=== PATIENT | female | born 1930 | race Caucasian/White ===

== ENCOUNTER 2016-10-02 00:10 | Observation (INO) ==
[2016-10-02 00:55] LABS: Basophils % 0.4 %; Eosinophils # 0.2 K/mcL (0.0-0.6); Eosinophils % 2.1 %; Hemoglobin 14.3 g/dL (11.5-15.4); Immature Granulocytes % 0.3 % (0-4); Lymphocytes % 27.8 %; Mean Corpuscular HGB Conc 31.8 g/dL (31.6-35.5); Mean Corpuscular Hemoglobin 28.2 pg (28.0-33.3); Mean Corpuscular Volume 88.8 fL (83.0-100.0); Mean Platelet Volume 11.2 fL (9.4-12.4); Monocytes # 0.6 K/mcL (0.0-1.3); Monocytes % 8.7 %; Neutrophils # 4.4 K/mcL (1.6-8.9); Platelet Count 222 K/mcL (140-400); Red Blood Count 5.07 M/mcL (3.82-4.97); Red Cell Distribution Width 15.1 % (11.5-14.5); Segmented Neutrophils % 60.7 %
[2016-10-02 01:05] LABS: Calcium 9.4 mg/dL (8.6-10.8); Magnesium 1.7 mg/dL (1.6-2.6); Potassium 4.5 mEq/L (3.5-4.5)
[2016-10-02 01:08] LABS: INR 0.9; Prothrombin Time 9.9 Seconds (9.4-12.1)
[2016-10-02 01:10] LABS: Activated Partial Thrombo Time 29.2 Seconds (26.0-36.0)
[2016-10-02] MEDS ORDERED: Aspirin 325 MG TABLET PO ONE (01:15)
--- NOTE | 2016-10-02 01:21 | Emergency Department Note ---
Disposition Clinical Impression: New onset atrial fibrillation, Toe pain, left Disposition: Admitted As Inpatient Condition: Fair Time of Disposition: 03:18 General Adult HPI - General Chief complaint: ED Extremity Problem,Nontraumatic Stated complaint: left ankle pain post fall Time Seen by Provider: 10/02/16 00:12 Source: patient Limitations: no limitations Nursing Notes Reviewed: Yes Vital Signs Reviewed: Yes - History of Present Illness HPI Narrative: Patient presents to the ED with the chief complaint of left foot pain. Upon arrival to the ED, the patient is very hard of hearing but is alert and oriented. Denying any pain, however, was noted to be in A. fib with RVR with a heart rate of 150 area. No previous history of A. fib. Patient denying chest pain, shortness of breath, or other concerns at this time Pain Scale: 0 - Related Data Home Medications Medication Instructions Recorded Confirmed Aspirin Enteric Coated [Aspirin EC] 81 mg PO QPM 01/27/15 07/16/15 Calcium Carbonate/Vitamin D3 1 each PO BID 01/27/15 07/16/15 [Calcium 600 + D Tablet] Donepezil [Aricept] 5 mg PO HS 01/27/15 07/16/15 Glyburide,Micronized [Glynase] 6 mg PO QAM 01/27/15 07/16/15 Levothyroxine [Synthroid] 50 mcg PO QAM 01/27/15 07/16/15 Metformin [Glucophage] 500 mg PO BIDWM 01/27/15 07/16/15 Montelukast [Singulair] 10 mg PO QPM 01/27/15 07/16/15 Multivitamin [Multi-Day Vitamins] 1 each PO QAM 01/27/15 07/16/15 Pioglitazone HCl [Actos] 15 mg PO QPM 01/27/15 07/16/15 Acetaminophen [Tylenol Arthritis] 650 mg PO DAILY 07/16/15 07/16/15 Enalapril Maleate [Vasotec] 2.5 mg PO BID 07/16/15 07/16/15 Ezetimibe/Simvastatin [Vytorin 1 each PO DAILY 07/16/15 07/16/15 10-20 mg Tablet] Previous Rx's Medication Instructions Recorded Docusate [Colace] 100 mg PO BID #60 capsule 03/16/15 cephALEXin [Keflex] 500 mg PO BID #20 capsule 07/16/15 Azithromycin [Zithromax] 250 mg PO DAILY #6 tablet 02/05/16 Benzonatate [Tessalon] 200 mg PO TID PRN #30 capsule 02/05/16 Sulfamethoxazole/Trimeth DS 1 each PO BID #14 tablet 02/07/16 [Bactrim DS] Allergies Allergy/AdvReac Type Severity Reaction Status Date / Time No Known Allergies Allergy Verified 05/13/16 08:04 Past Medical History - Past Medical History Medical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: dementia, diabetes, hyperlipidemia, hypertension, thyroid disease, other Surgical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: orthopedic, other Psychiatric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: no psych history LIGHTING ADVISER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: non-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 - Social History Smoking Status: Never smoker Smokeless Tobacco Status: No Alcohol use: Reports: none Drug use: Reports: none Physical Exam - General Limitations: no limitations General appearance: alert, in no apparent distress - Head Head exam: atraumatic, normocephalic, normal inspection - Eye Eye exam: Present: normal appearance, PERRL, EOMI - Respiratory Respiratory exam: Present: normal lung sounds bilaterally - Cardiovascular Cardiovascular exam: Present: tachycardia, irregular rhythm - Abdominal Exam Abdominal exam: Present: soft, Non-Tender. Absent: tenderness, distention, guarding, rebound, rigidity - Expanded Lower Extremity Exam Neurovascular/Tendon exam: Present: other (Some mild swelling of the left great toe. No signs of infection) Course - Reevaluation(s) Reevaluation #1: Patient with new onset A. fib with RVR. Converted back to normal sinus rhythm after bolus of Cardizem. However, once started on Cardizem drip. She did become bradycardic to the 50s. The drip was stopped and heart rate has remained normal sinus rhythm in the low 60s. We will hold off on the drip at this time. Were awaiting her troponin and then we will admit her to hospitalist service for new onset A. fib with RVR. Chest x-ray is normal. Will give aspirin. Time: 01:19 Vital Signs Temperature 98.4 F 10/02/16 00:18 Pulse Rate 150 10/02/16 00:18 Respiratory Rate 20 10/02/16 00:18 Blood Pressure 193/122 10/02/16 00:18 O2 Sat by Pulse Oximetry 97 10/02/16 00:18 Temperature 0 F L 10/02/16 03:14 Pulse Rate 54 10/02/16 02:48 Respiratory Rate 0 10/02/16 03:14 Blood Pressure 0/0 10/02/16 03:14 O2 Sat by Pulse Oximetry 98 10/02/16 02:48 Oxygen Delivery Oxygen Delivery Nasal Cannula Medical Decision Making - Medical Records Medical records reviewed: Yes I reviewed the patient's medical records. - Lab Data Lab results reviewed: Yes I reviewed the patient's lab results. Result diagrams: 10/02/16 00:40 10/02/16 00:40 Lab Results 10/02/16 10/02/16 10/02/16 Range/Units 00:40 00:40 00:40 WBC 7.3 (4.3-11.1) K/mcL RBC 5.07 H (3.82-4.97) M/mcL Hgb 14.3 (11.5-15.4) g/dL Hct 45.0 H (35.3-44.9) % MCV 88.8 (83.0-100.0) fL MCH 28.2 (28.0-33.3) pg MCHC 31.8 (31.6-35.5) g/dL RDW 15.1 H (11.5-14.5) % Plt Count 222 (140-400) K/mcL MPV 11.2 (9.4-12.4) fL Immature Gran % 0.3 (0-4) % Seg Neutrophils % 60.7 % Lymphocytes % 27.8 % Monocytes % 8.7 % Eosinophils % 2.1 % Basophils % 0.4 % Neutrophils # 4.4 (1.6-8.9) K/mcL Lymphocytes # 2.0 (0.6-4.6) K/mcL Monocytes # 0.6 (0.0-1.3) K/mcL Eosinophils # 0.2 (0.0-0.6) K/mcL Basophils # 0.0 (0.0-0.2) K/mcL PT 9.9 (9.4-12.1) Seconds INR 0.9 APTT 29.2 (26.0-36.0) Seconds Sodium 139 (136-145) mEq/L Potassium 4.5 (3.5-4.5) mEq/L Chloride 106 (98-109) mEq/L Carbon Dioxide 24 (19-29) mEq/L BUN 28 H (7-20) mg/dL Creatinine 1.11 (0.57-1.11) mg/dL Est GFR ( Amer) 56 L (> 60) Est GFR (Non-Af Amer) 46 L (> 60) BUN/Creatinine Ratio 25 (6-26) Glucose 200 H (70-99) mg/dL Calculated Osmolality 299 (280-300) Calcium 9.4 (8.6-10.8) mg/dL Magnesium 1.7 (1.6-2.6) mg/dL Troponin I (0-0.03) ng/mL 10/02/16 Range/Units 00:40 WBC (4.3-11.1) K/mcL RBC (3.82-4.97) M/mcL Hgb (11.5-15.4) g/dL Hct (35.3-44.9) % MCV (83.0-100.0) fL MCH (28.0-33.3) pg MCHC (31.6-35.5) g/dL RDW (11.5-14.5) % Plt Count (140-400) K/mcL MPV (9.4-12.4) fL Immature Gran % (0-4) % Seg Neutrophils % % Lymphocytes % % Monocytes % % Eosinophils % % Basophils % % Neutrophils # (1.6-8.9) K/mcL Lymphocytes # (0.6-4.6) K/mcL Monocytes # (0.0-1.3) K/mcL Eosinophils # (0.0-0.6) K/mcL Basophils # (0.0-0.2) K/mcL PT (9.4-12.1) Seconds INR APTT (26.0-36.0) Seconds Sodium (136-145) mEq/L Potassium (3.5-4.5) mEq/L Chloride (98-109) mEq/L Carbon Dioxide (19-29) mEq/L BUN (7-20) mg/dL Creatinine (0.57-1.11) mg/dL Est GFR ( Amer) (> 60) Est GFR (Non-Af Amer) (> 60) BUN/Creatinine Ratio (6-26) Glucose (70-99) mg/dL Calculated Osmolality (280-300) Calcium (8.6-10.8) mg/dL Magnesium (1.6-2.6) mg/dL Troponin I 0.00 (0-0.03) ng/mL - Radiology Data Radiology results reviewed: Yes I reviewed the patient's radiology results. - EKG Data EKG #1 EKG attestation: Yes I reviewed and interpreted this EKG. EKG results narrative: Initial EKG at 00:19 showed a flutter with RVR, rate 149 OK, QTC 386, left axis deviation, incomplete right bundle branch block, ST segment depression, which is likely rate related. Repeat EKG at 01:00. After Cardizem bolus shows sinus bradycardia, rate 56, RI interval 180, QRS 121, QTc 408, left axis deviation, right bundle branch block pattern, no acute ischemic changes, but does have a Q-wave in lead V1 and V2, which was also present and previous Patient has remained asymptomatic throughout Attestation Statement - Attestation Attestation: I personally interviewed and examined this patient and my medical decision- making was reviewed with the Resident Physician, Dr. Enriquez. I agree with the documented findings, disposition and treatment plan as described except to the extent set forth below. Patient is an 86-year-old elderly white female who comes in today with complaints of left great toe pain. Patient denies any injury or falls. Upon hooking the patient to monitor to take vitals patient was found to have a heart rate of 150. Patient denies any symptoms associated with this high heart rate, no chest pain or pressure, no palpitations, no shortness of breath, no diaphoresis, no nausea vomiting, no abdominal pain or flank pain. Patient denies any history of any heart disorders or dysrhythmias. She is resting comfortable with this time no complaints in no acute distress. Patient placed on a night monitor continuous pulse ox supplement oxygen 2 L nasal cannula IV saline well was established and patient had portable chest x- ray. Patient's labs overall are unremarkable mild elevation in glucose at 200. Patient was given a Cardizem bolus which resulted in her transitioning from atrial flutter to normal sinus rhythm in the 70s with a stable blood pressure. Initial EKG obtained showed atrial flutter. Within 10-15 minutes of starting Cardizem drip patient became significant bradycardic although completely asymptomatic. Cardizem drip was stopped and held in patient's heart rate normalized in the 70s and 80s with a stable blood pressure. Patient with negative cardiac enzymes, chest x-ray was within normal limits, and patient had film which was negative for any bony injury or swelling. Patient with tachybradycardia while in the ED. Will admit to the hospital for further evaluation of erratic heart rate changes. Currently patient's vital signs are stable she is resting comfortably and asymptomatic. Case was discussed with the hospitalist who accepted patient for admission for further evaluation.
[2016-10-02] MEDS ORDERED: Acetaminophen 325 MG TABLET PO PRN (03:58)
[2016-10-02] MEDS ORDERED: 0.9 % Sodium Chloride 1,000 ML IVC SCH (04:00)
[2016-10-02] MEDS ORDERED: Dextrose Gel 15 GM PO PRN ×2 (04:01)
[2016-10-02] MEDS ORDERED: D5% in Water 1,000 ML IVC PRN (04:01)
[2016-10-02] MEDS ORDERED: *HR* Dextrose 50 % in Water (Syg) 50 ML SYRINGE IVP PRN (04:01)
--- NOTE | 2016-10-02 04:05 | Internal Med History&Physical ---
<Lorena Jacobo - Last Filed: 10/02/16 05:03> Date of Encounter: 10/02/16 Time of Encounter: 03:00 Assessment and Plan (1) SVT (supraventricular tachycardia) Current visit: No Status: Acute - Initial EKG in ED appeared to be SVT with regular morphology at rate of 150. The EKG after conversion appeared to be bradycardia with some irregularity. - Likely secondary to dehydration. Will rehydrate with IV fluid. - Will check thyroid cascade. - Continue telemetry monitoring and trend troponin. (2) Dehydration Current visit: Yes Status: Acute - With reported poor oral fluid intake and BUN/Cr ratio o 25. - Likely contributing to initial SVT in ED. - Hydration with IV NS. (3) Hypothyroidism Current visit: Yes Status: Chronic - Patient had elevated TSH (8.327) but normal free T4 (1.00) on 09/09/16, suggestive of subclinical hypothyroidism. - Continue home dose Synthroid. - Will check thyroid cascade. Qualifiers: Hypothyroidism type: acquired Qualified Code(s): E03.9 - Hypothyroidism, unspecified (4) Toe pain, left Current visit: Yes Status: Acute - Secondary to mechanical fall. - Left foot X-ray found no fracture or malalignment. - Tylenol prn pain. (5) Diabetes Current visit: No Status: Chronic - Insulin sliding scale with routine AccuCheck. - Will check Hgb A1C. - Diabetic diet. Qualifiers: Diabetes mellitus type: type 2 Diabetes mellitus complication status: without complication Diabetes mellitus nursing home insulin use: without intermodal dispatcher use Qualified Code(s): E11.9 - Type 2 diabetes mellitus without complications (6) HTN (hypertension) Current visit: No Status: Chronic - BP now within normal range. - Continue home dose antihypertensive regimen. Qualifiers: Hypertension type: essential hypertension Qualified Code(s): I10 - Essential (primary) hypertension (7) Dementia Current visit: No Status: Chronic - Patient is alert and oriented to self. Per patient's daughter, patient's mental status is at her baseline. - Continu home dose donepezil. Qualifiers: Dementia type: unspecified type Dementia behavioral disturbance: without behavioral disturbance Qualified Code(s): F03.90 - Unspecified dementia without behavioral disturbance (8) Fall Current visit: Yes Status: Acute - Reported mechanical fall at home. - PT/OT consult to evaluate and treat. Qualifiers: Encounter type: initial encounter Qualified Code(s): W19.XXXA - Unspecified fall, initial encounter (9) DVT prophylaxis Current visit: Yes Status: Acute -SQ heparin. Internal Medicine - H&P: HPI Chief complaint: Left big toe pain after a fall. Admitted From: Emergency Dept Plans for Post Hospital Care: Home History of present illness: Ms. Tran is a 86 year old female with PMH of dementia, HTN, DM2 and hypothyroidism currently on Synthroid. Patient presented to [facility] for left big toe pain after a mechanical fall. In ED, patient was noted to have what appeared to be SVT at rate of 150s and blood pressure 193/122. Cardizem drip was started but patient quickly converted to bradycardia at rate of 50s so Cardizem drip was discontinued. On the encounter, patient does not know why she is here in hospital and denies chest pain, shortness of breath, palpitation, lightheadedness at this time. Given patient's dementia and hard to hearing, much of history was obtained from review of medical record and talking to patient's daughter and medical POA at bedside. Per patient's daughter, patient tripped and fell without any loss of consciousness. She states patient's current mental status is at her baseline. Patient is known to have problem to maintain adequate oral fluid intake. Review of [facility] records revealed that patient was hospitalized in 01/2015 for rapid heart rate. And cardiology at time thinks it's PSVT in the setting of possible dehydration & UTI and recommended low-dose Cardizem therapy (120 mg PO daily) to minimize recurrence of SVT. Per patient's daughter, patient did not get the Cardizem prescription on discharge so patient is not on Cardizem at home. Last echo on 03/15/15 found LVEF 60%. Regarding patient's code status, patient's daughter & medical POA states it's okay to get CPR but no long-term life support. Past Med Surg Social Fam HX - Past Medical History Medical history: dementia, diabetes, hyperlipidemia, hypertension, thyroid disease, other Psychiatric history: no psych history - Past Surgical History Surgical History: orthopedic, other - Social History Smoking Status: Never smoker Smokeless Tobacco Status: No Alcohol use: none Drug use: none - Family History Father Living Status: Hx Family Cardiac Disorders: Yes (HEART ATTACK) Internal Medicine - H&P: Meds Aspirin Enteric Coated [Aspirin EC] 81 mg PO QPM 01/27/15 [History] Calcium Carbonate/Vitamin D3 [Calcium 600 + D Tablet] 1 each PO BID 01/27/15 [ History] Donepezil [Aricept] 5 mg PO HS 01/27/15 [History] Glyburide,Micronized [Glynase] 6 mg PO QAM 01/27/15 [History] Levothyroxine [Synthroid] 50 mcg PO QAM 01/27/15 [History] Metformin [Glucophage] 500 mg PO BIDWM 01/27/15 [History] Montelukast [Singulair] 10 mg PO QPM 01/27/15 [History] Multivitamin [Multi-Day Vitamins] 1 each PO QAM 01/27/15 [History] Pioglitazone HCl [Actos] 15 mg PO QPM 01/27/15 [History] Docusate [Colace] 100 mg PO BID #60 capsule 03/16/15 [Rx] Acetaminophen [Tylenol Arthritis] 650 mg PO DAILY 07/16/15 [History] Enalapril Maleate [Vasotec] 2.5 mg PO BID 07/16/15 [History] Ezetimibe/Simvastatin [Vytorin 10-20 mg Tablet] 1 each PO DAILY 07/16/15 [ History] cephALEXin [Keflex] 500 mg PO BID #20 capsule 07/16/15 [Rx] Azithromycin [Zithromax] 250 mg PO DAILY #6 tablet 02/05/16 [Rx] Benzonatate [Tessalon] 200 mg PO TID PRN #30 capsule 02/05/16 [Rx] Sulfamethoxazole/Trimeth DS [Bactrim DS] 1 each PO BID #14 tablet 02/07/16 [Rx] Allergies No Known Allergies Allergy (Verified 05/13/16 08:04) ROS unobtainable: due to mental status (Patient has dementia and is hard to hearing.) - Constitutional Vitals: Temp Pulse Resp BP Pulse Ox 0 F L 54 0 0/0 98 10/02/16 03:14 10/02/16 02:48 10/02/16 03:14 10/02/16 03:14 10/02/16 02:48 General appearance: Present: cooperative, A&O X 1 (Alert and orient to self. Per patient's daugher at bedside, this is her baseline. ), no acute distress - Head Head exam: Present: atraumatic, normocephalic - Eye Eye exam: Present: EOMI, PERRL, conjuntiva pink, sclera anicteric - Neck Neck exam general surgery: Present: supple, trachea midline. Absent: lymphadenopathy - Respiratory Respiratory exam: Present: CTAB. Absent: accessory muscle use, rales, rhonchi, wheezes - Cardiovascular Cardiovascular exam: Present: RRR, +S1, +S2. Absent: diastolic murmur, gallop, rubs, systolic murmur - GI/Abdominal GI/Abdominal exam: Present: normal bowel sounds, soft, no peritoneal signs. Absent: distended, tenderness - Extremities Exam Extremities exam: Present: warm, radial pulses palpable and symmetrical. Absent : calf tenderness, cyanotic, pedal edema - Neurological Exam Neurological exam: Present: CN II-XII intact, oriented X3, no focal deficits. Absent: pronater drift, facial droop, speech deficit - Skin Skin exam: Present: dry, intact, warm Internal Med - H&P Results - Labs CBC & Chem 7: 10/02/16 00:40 10/02/16 00:40 <Devendra Whiting - Last Filed: 10/02/16 06:13> Date of Encounter: 10/02/16 Internal Medicine - H&P: HPI History of present illness: Ms. Tran is a 86 year old female All Systems PM: A 10-system review of systems was performed and is negative for pertinent findings except as documented above in the HPI. - Constitutional Vitals: Temp Pulse Resp BP Pulse Ox 97.7 F 63 20 159/66 100 10/02/16 04:01 10/02/16 04:01 10/02/16 04:01 10/02/16 04:01 10/02/16 04:01 Internal Med - H&P Results - Labs CBC & Chem 7: 10/02/16 00:40 10/02/16 00:40 Labs: Urine 10/02/16 Range/Units 05:20 Urine Color Yellow (Yellow) Urine Clarity Clear (Clear) Urine pH 6.5 (5.0-8.0) pH Units Ur Specific Busy 1.018 (1.010-1.025) Urine Protein Negative (Neg-Trace) mg/dL Urine Glucose (UA) Normal (Normal) mg/dL - Attending Attestation I examined this patient and my medical decision-making was reviewed with the Resident Physician, Dr. Lorena Jacobo. I agree with the documented findings, disposition and treatment plan as described except to the extent set forth below. I have independently obtained history and examined the patient and my findings are summarized below: Patient is very hard of hearing. In no acute distress. Head is atraumatic. Heart is regular S1-S2 with no murmurs rubs or gallops Lungs are clear bilaterally Extremities with no edema Plan: We will monitor on telemetry, trend troponin, a recent echocardiogram is unremarkable and does not require a repeat. We will obtain PT OT evaluation, request social work consult. We will treat her dehydration with IV fluids and follow up thyroid function tests.
[2016-10-02 04:45] LABS: Hemoglobin A1C 7.1 %
[2016-10-02 05:03] LABS: Thyroid Stimulating Hormone 6.683 mcIU/mL (0.350-4.840)
[2016-10-02] MEDS: *HR* Heparin 5,000 UNIT/ML VIAL SQ SCH ×3 (05:46→22:05)
[2016-10-02 05:49] LABS: Bilirubin,Urine Negative (Negative); Blood,Urine Negative (Negative); Clarity,Urine Clear (Clear); Color,Urine Yellow (Yellow); Glucose,Urine (UA) Normal (Normal); Ketones,Urine Negative (Negative); Leukocyte Esterase,Urine Negative (Negative); Nitrite,Urine Negative (Negative); PH,Urine 6.5 pH Units (5.0-8.0); Protein,Urine Negative (Neg-Trace); Specific Gravity,Urine 1.018 (1.010-1.025); Urobilinogen,Urine Normal (Normal)
[2016-10-02] MEDS: Insulin LISPRO 300 UNITS/3 ML VIAL SQ SCH ×3 (07:53→16:27)
[2016-10-02] MEDS: Diltiazem CD (24hr) 120 MG CAPSULE PO SCH (11:44)
[2016-10-02] MEDS ORDERED: 0.9 % Sodium Chloride 500 ML IVC ONE (11:49)
[2016-10-02] MEDS ORDERED: Aspirin Enteric Coated 81 MG Tablet PO SCH (18:00)
--- NOTE | 2016-10-02 19:13 | Event Note ---
Date of Encounter: 10/02/16 Time of Encounter: 10:00 Pt was admitted earlier today with REENA. She has been receiving IV fluids. She had SVT as well and now is on PO med. Exam Alert and comfortable Heart reg I/P 1 SVT 2. REENA Plan continue fluids, PO meds and anticipate d/c tomorrow.
--- NOTE | 2016-10-02 19:51 | Event Note ---
Date of Encounter: 10/02/16 Time of Encounter: 08:45 Patient seen and examined. Most of the history obtained from daughter as the patient was very tired from admission. She reports no complaints. Start PO Cardizem 120mg and monitor. PT/OT evaluation.
--- NOTE | 2016-10-02 20:30 | Electrocardiograph Report ---
[place] [id number] Test Date: 2016-10-02 Pat Name: Anyi Tran Department: 102 Room: 2A45 Gender: F Revenue Research Analyst: Kacy : [id number] Requested By: Colt Enriquez Order Number: [id number] Reading MD: Luciano Israel MD Measurements Intervals [place] Rate: 152 P: 230 TX: 119 QRS: -74 QRSD: 111 T: 60 QT: 297 QTc: 383 Interpretive Statements SINUS TACHYCARDIA WITH SHORT TX INTERVAL, POSSIBLE ATRIAL FLUTTER INCOMPLETE RIGHT BUNDLE BRANCH BLOCK LEFT ANTERIOR FASCICULAR BLOCK Poor R wave progression Electronically Signed On 10-02-2016 20:28:42 EDT by Luciano Israel MD
[2016-10-02] MEDS ORDERED: Insulin LISPRO 300 UNITS/3 ML VIAL SQ SCH (21:00)
[2016-10-03 05:07] LABS: Calcium 9.2 mg/dL (8.6-10.8); Potassium 3.9 mEq/L (3.5-4.5)
[2016-10-03] MEDS: *HR* Heparin 5,000 UNIT/ML VIAL SQ SCH (05:47)
[2016-10-03 07:08] VITALS: BP 158/85
--- NOTE | 2016-10-03 08:31 | Discharge Summary ---
<Quique Hummel R - Last Filed: 10/03/16 08:49> Date of Encounter: 10/03/16 Time of Encounter: 08:28 - Discharge Diagnosis (1) SVT (supraventricular tachycardia) Priority: Primary Status: Resolved (2) Dehydration Priority: Secondary Status: Acute (3) Fall Priority: Secondary Status: Acute Qualifiers: Encounter type: initial encounter Qualified Code(s): W19.XXXA - Unspecified fall, initial encounter (4) Dementia Priority: Secondary Status: Chronic Qualifiers: Dementia type: unspecified type Dementia behavioral disturbance: without behavioral disturbance Qualified Code(s): F03.90 - Unspecified dementia without behavioral disturbance (5) Non-insulin dependent type 2 diabetes mellitus Priority: Secondary Status: Chronic (6) HTN (hypertension) Priority: Secondary Status: Chronic Qualifiers: Hypertension type: essential hypertension Qualified Code(s): I10 - Essential (primary) hypertension (7) Toe pain, left Priority: Secondary Status: Acute (8) Hypothyroidism Priority: Secondary Status: Chronic Qualifiers: Hypothyroidism type: acquired Qualified Code(s): E03.9 - Hypothyroidism, unspecified - Discharge Medications Prescriptions: Diltiazem CD (24hr) [Cardizem CD] 120 mg PO DAILY #30 cap.er.24h Home Medications: Aspirin Enteric Coated [Aspirin EC] 81 mg PO QPM 01/27/15 [History] Calcium Carbonate/Vitamin D3 [Calcium 600 + D Tablet] 1 tab PO BID 01/27/15 [ History] Donepezil [Aricept] 5 mg PO HS 01/27/15 [History] Levothyroxine [Synthroid] 50 mcg PO QAM 01/27/15 [History] Metformin [Glucophage] 1,000 mg PO BIDWM 01/27/15 [History] Montelukast [Singulair] 10 mg PO QPM 01/27/15 [History] Multivitamin [Multi-Day Vitamins] 1 tab PO QAM 01/27/15 [History] Docusate [Colace] 100 mg PO BID #60 capsule 03/16/15 [Rx] Acetaminophen [Tylenol Arthritis] 650 mg PO DAILY PRN 07/16/15 [History] Enalapril Maleate [Vasotec] 10 mg PO DAILY 07/16/15 [History] Glimepiride [Amaryl] 2 mg PO 0800 10/02/16 [History] Simvastatin [Zocor] 20 mg PO HS 10/02/16 [History] Diltiazem CD (24hr) [Cardizem CD] 120 mg PO DAILY #30 cap.er.24h 10/03/16 [Rx] Allergies/Adverse Reactions: Allergies No Known Allergies Allergy (Verified 05/13/16 08:04) Procedures/tests Complete & Pending: Procedures Performed prior 72 hours Category Date Time Status ECG 12 lead ECG [ECG] Routine Y 10/02/16 00:17 Completed Date of admission: 10/02/16 02:47 Primary care physician: Amelia Reddy CNP Consults: 10/02/16 03:40 Consult to Construction Analyst [CONS] Routine Reason for SW Consult: Discharge planning. Has home helpers, attends adult day care. Dementia patient--lives with daughter in home 10/02/16 04:04 Consult to Physical Therapy [CONS] Routine Comment: Evaluate, develop and implement POC Reason for Consult: Fall at home OT [Consult to Occupational Therapy] [CONS] Routine Comment: Evaluate, develop and implement POC Reason for Consult: Fall at home Discharging clinician: Quique Hummel Anticipated date of discharge: 10/03/16 - Patient Status Disposition: Transfer SNF Condition: Fair Overall status at discharge: patient is progressing back to baseline - Discharge Instructions Follow Up With: Amelia Reddy CNP [Primary Care Provider] - (web request 10/02/16 [facility] Additional Instructions: Continue to work with Physical Therapy to increase strength Follow-up with you primary care physician Return if symptoms return or worsen - Diet and Activity Activity: as per physical therapy Diet: advance to your usual diet Interval History: Patient doing well. Reports no complaints and states she feels like her normal self. Denies syncope, dizziness, palpitations, chest pain, dyspnea, cough, N/V/D , dysuria, or leg pain. Hospital course: Ms. Tran is a 86 year old female with PMH of DM, HTN, hypothyroidism, and dementia, presents after a mechanical fall with right toe pain and no fracture on images. In the ED she was found to be in SVT, likely secondary to dehydration. Cardizem drip was initiated and then stopped after the patient became bradycardic. Management was discussed with torch brazer, and he recommended initiating low-dose oral Cardizem (120mg daily). She was monitored closely and she did not become bradycardic or have symptoms with the low-dose Cardizem. Patient will be transferred to [facility] in [place]. - Time Spent with Patient Total time spent providing and/or coordinating discharge services: - Constitutional Vitals: Temp Pulse Resp BP Pulse Ox 98.3 F 60 14 158/85 96 10/03/16 07:03 10/03/16 07:03 10/03/16 07:03 10/03/16 07:03 10/03/16 07:03 General appearance: Present: cooperative, A&O X 1 (Alert and orient to self. Per patient's daugher at bedside, this is her baseline. ), no acute distress - Head Head exam: Present: atraumatic, normocephalic - ENT ENT exam: Present: mucous membranes moist - Respiratory Respiratory exam: Present: CTAB. Absent: rales, rhonchi, wheezes - Cardiovascular Cardiovascular exam: Present: RRR, +S1, +S2. Absent: diastolic murmur, systolic murmur - GI/Abdominal GI/Abdominal exam: Present: normal bowel sounds, soft. Absent: distended, rigid , tenderness - Neurological Exam Neurological exam: Present: alert, CN II-XII intact, no focal deficits <Jose Martin Devlin - Last Filed: 10/03/16 18:49> Date of Encounter: 10/03/16 - Discharge Diagnosis (1) SVT (supraventricular tachycardia) Status: Resolved (2) REENA (acute kidney injury) Priority: Secondary Status: Resolved (3) Hypothyroidism Status: Chronic Qualifiers: Hypothyroidism type: acquired Qualified Code(s): E03.9 - Hypothyroidism, unspecified (4) Dehydration Status: Acute (5) HTN (hypertension) Status: Chronic Qualifiers: Hypertension type: essential hypertension Qualified Code(s): I10 - Essential (primary) hypertension (6) Dementia Status: Chronic Qualifiers: Dementia type: unspecified type Dementia behavioral disturbance: without behavioral disturbance Qualified Code(s): F03.90 - Unspecified dementia without behavioral disturbance (7) Diabetes Priority: Secondary Status: Chronic Qualifiers: Diabetes mellitus type: type 2 Diabetes mellitus complication status: without complication Diabetes mellitus keno terminal operator insulin use: without usp use Qualified Code(s): E11.9 - Type 2 diabetes mellitus without complications Procedures/tests Complete & Pending: Procedures Performed prior 72 hours Category Date Time Status ECG 12 lead ECG [ECG] Routine Y 10/02/16 00:17 Completed Date of admission: 10/02/16 02:47 Primary care physician: Amelia Reddy CNP Consults: 10/02/16 03:40 Consult to Construction Analyst [CONS] Routine Reason for SW Consult: Discharge planning. Has home helpers, attends adult day care. Dementia patient--lives with daughter in home 10/02/16 04:04 Consult to Physical Therapy [CONS] Routine Comment: Evaluate, develop and implement POC Reason for Consult: Fall at home OT [Consult to Occupational Therapy] [CONS] Routine Comment: Evaluate, develop and implement POC Reason for Consult: Fall at home Hospital course: Ms. Tran is a 86 year old female - Time Spent with Patient Total time spent providing and/or coordinating discharge services: - Constitutional Vitals: Temp Pulse Resp BP Pulse Ox 98.3 F 60 14 158/85 96 10/03/16 07:03 10/03/16 07:03 10/03/16 07:03 10/03/16 07:03 10/03/16 07:03 - Attending Attestation I examined this patient and my medical decision-making was reviewed with the Resident Physician on 10/03/16. I agree with the documented findings, disposition and treatment plan as described except to the extent set forth below. Ms. Ruano was admitted for acute SVT and dehydration. She is now afebrile with stable vitals and ready for d/c home. Exam alert. Comfortable Heart reg No wheeze Abd soft Plan D/C home today.
--- NOTE | 2016-10-03 08:49 | Physician Discharge Referral ---
ExtendedCare Referral Info Transfer To: [facility] Provider in Charge after Transfer: PCP, Other (Regional Service Manager) Institutional Level of Care: Skilled - Diagnosis (1) SVT (supraventricular tachycardia) Priority: Primary Status: Resolved (2) Dehydration Priority: Secondary Status: Acute (3) Fall Priority: Secondary Status: Acute (4) Dementia Priority: Secondary Status: Chronic (5) Non-insulin dependent type 2 diabetes mellitus Priority: Secondary Status: Chronic (6) HTN (hypertension) Priority: Secondary Status: Chronic (7) Toe pain, left Priority: Secondary Status: Acute (8) Hypothyroidism Priority: Secondary Status: Chronic Prognosis: Fair Aware of Diagnosis: Patient, Family Aware of Prognosis: Patient, Family - Transfer Medications Prescriptions: Diltiazem CD (24hr) [Cardizem CD] 120 mg PO DAILY #30 cap.er.24h Home Medications: Aspirin Enteric Coated [Aspirin EC] 81 mg PO QPM 01/27/15 [History] Calcium Carbonate/Vitamin D3 [Calcium 600 + D Tablet] 1 tab PO BID 01/27/15 [ History] Donepezil [Aricept] 5 mg PO HS 01/27/15 [History] Levothyroxine [Synthroid] 50 mcg PO QAM 01/27/15 [History] Metformin [Glucophage] 1,000 mg PO BIDWM 01/27/15 [History] Montelukast [Singulair] 10 mg PO QPM 01/27/15 [History] Multivitamin [Multi-Day Vitamins] 1 tab PO QAM 01/27/15 [History] Docusate [Colace] 100 mg PO BID #60 capsule 03/16/15 [Rx] Acetaminophen [Tylenol Arthritis] 650 mg PO DAILY PRN 07/16/15 [History] Enalapril Maleate [Vasotec] 10 mg PO DAILY 07/16/15 [History] Glimepiride [Amaryl] 2 mg PO 0800 10/02/16 [History] Simvastatin [Zocor] 20 mg PO HS 10/02/16 [History] Diltiazem CD (24hr) [Cardizem CD] 120 mg PO DAILY #30 cap.er.24h 10/03/16 [Rx] Allergies/Adverse Reactions: Allergies No Known Allergies Allergy (Verified 05/13/16 08:04) - Respiratory Orders Smoking Cessation: Smoking cessation has been advised. For more information, call the [place] Tobacco Quit Line at 1-712-EZKC-NOW. - Advance Directives Code Status: Full Code - Rehabiliation Orders Rehab Potential: Fair Rehab Orders: Evaluation for Physical Therapy, Evaluation for Occupational Therapy - Diet Orders Regular CERTIFICATION: I certify that the transfer of the above named patient to an Extended Care Facility is necessary for the continuing treatment of the diagnosis listed. The above information is true and accurate reflection of patient's current condition. Confidential - Redisclosure prohibited without a patient's written consent.
[2016-10-03] MEDS: Insulin LISPRO 300 UNITS/3 ML VIAL SQ SCH (08:54)
[2016-10-03] MEDS: Diltiazem CD (24hr) 120 MG CAPSULE PO SCH (09:00)
--- NOTE | 2016-10-03 15:24 | Electrocardiograph Report ---
[place] [id number] Test Date: 2016-10-02 Pat Name: Anyi Tran Department: 102 Room: 2A Gender: Germination Testing Manager: [id number] : 1930 Requested By: Jose Martin Devlin Order Number: [id number] Reading MD: Goran Hendrickson Measurements Intervals [place] Rate: 56 P: 36 NC: 180 QRS: -63 QRSD: 121 T: 7 QT: 417 QTc: 408 Interpretive Statements SINUS BRADYCARDIA WITH JUNCTIONAL ESCAPE BEATS RIGHT BUNDLE BRANCH BLOCK LEFT ANTERIOR FASCICULAR BLOCK Electronically Signed On 10-03-2016 15:23:01 EDT by Goran Hendrickson
== END 2016-10-03 11:05 ==
LOC: EMEROO 00:10 → 2ANU 00:10 → SUATTDRO 02:47 → 2ANU 03:07
PROVIDERS: ADMIT Internal Medicine Hematology & Oncology; ATTEND Internal Medicine

== ENCOUNTER 2017-07-08 23:50 | Inpatient (IN) ==
--- NOTE | 2017-07-09 01:46 | Emergency Department Note ---
Disposition Clinical Impression: Right upper lobe pneumonia Qualifiers: Pneumonia type: due to unspecified organism Qualified Code(s): J18.1 - Lobar pneumonia, unspecified organism Disposition: Admitted As Inpatient Condition: Good Time of Disposition: 06:19 Weakness HPI - General Chief complaint: ED General Medical Stated complaint: "generalized illness" Time Seen by Provider: 07/09/17 00:29 Source: EMS Nursing Notes Reviewed: Yes Vital Signs Reviewed: Yes - History of Present Illness HPI Narrative: 86-year-old female presents with worsening weakness, decreased activity. She is accompanied by her daughter whom she lives, and who has provided history. Daughter reports that patient has had a cough, fever over the past 2 days. Daughter mentions patient has had dementia, but has been less alert. They had called their family doctor who had started her on amoxicillin today she had taken one dose. Symptoms worsen which prompted her visit to the emergency department. Daughter does mention patient has history of dementia, but has become more weak, and less alert. She also mentions patient had complained of neck pain earlier, and has had eye discharge. SHe denies worsening confusion, chest pain, shortness breath, abdominal pain, vomiting, or bladder symptoms. Pain Scale: 0 - Related Data Home Medications Medication Instructions Recorded Confirmed Aspirin Enteric Coated [Aspirin EC] 81 mg PO QPM 01/27/15 10/02/16 Calcium Carbonate/Vitamin D3 1 tab PO BID 01/27/15 10/02/16 [Calcium 600 + D Tablet] Donepezil [Aricept] 5 mg PO HS 01/27/15 10/02/16 Levothyroxine [Synthroid] 50 mcg PO QAM 01/27/15 10/02/16 Metformin [Glucophage] 1,000 mg PO BIDWM 01/27/15 10/02/16 Montelukast [Singulair] 10 mg PO QPM 01/27/15 10/02/16 Multivitamin [Multi-Day Vitamins] 1 tab PO QAM 01/27/15 10/02/16 Acetaminophen [Tylenol Arthritis] 650 mg PO DAILY PRN 07/16/15 10/02/16 Enalapril Maleate [Vasotec] 10 mg PO DAILY 07/16/15 10/02/16 Glimepiride [Amaryl] 2 mg PO 0800 10/02/16 10/02/16 Simvastatin [Zocor] 20 mg PO HS 10/02/16 10/02/16 Previous Rx's Medication Instructions Recorded Docusate [Colace] 100 mg PO BID #60 capsule 03/16/15 Diltiazem CD (24hr) [Cardizem CD] 120 mg PO DAILY #30 cap.er.24h 10/03/16 Allergies Allergy/AdvReac Type Severity Reaction Status Date / Time No Known Allergies Allergy Verified 05/13/16 08:04 All systems ED: reviewed and negative except as stated. Review of Systems: As Per HPI Constitutional: Denies: fever, chills, weakness Eyes: Reports: eye discharge. Denies: vision change ENT ED: Denies: throat pain Cardiovascular: Denies: palpitations Respiratory: Denies: dyspnea Gastrointestinal: Denies: abdominal pain, nausea, vomiting Genitourinary: Denies: dysuria Musculoskeletal: Denies: back pain, neck pain Integumentary: Denies: rash Neurological: Reports: as per HPI Endocrine: Denies: fatigue Hematological/Lymphatic: Denies: easy bleeding Allergic/Immunologic: Denies: facial swelling Past Medical History - Past Medical History Medical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: non-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, dementia, diabetes, hyperlipidemia, hypertension, thyroid disease, other Surgical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: orthopedic, other Psychiatric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: no psych history NOTCH GRINDER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: non-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 - Social History Smoking Status: Never smoker Smokeless Tobacco Status: No Alcohol use: Reports: none Drug use: Reports: none Physical Exam - General Limitations: altered mental status General appearance: in no apparent distress, other (Somnolent but arousable) - Head Head exam: atraumatic, normocephalic - Eye Eye exam: Present: EOMI. Absent: conjunctival injection - Expanded Eye Exam Sclera/Conjunctival: bilateral: exudate - ENT ENT exam: normal oropharynx, mucous membranes moist - Neck Neck exam: Present: normal inspection, full ROM. Absent: lymphadenopathy - Chest Chest inspection: Present: symmetric chest wall rise - Respiratory Respiratory exam: Present: normal lung sounds bilaterally. Absent: respiratory distress - Cardiovascular Cardiovascular exam: Present: regular rate - Abdominal Exam Abdominal exam: Present: soft, Non-Tender - Extremities Exam Extremities exam: Present: normal inspection, full ROM, normal capillary refill. Absent: tenderness - Expanded Neurological Exam Coma Scale Eye Opening: To Voice Coma Scale Motor Response: Obeys Commands Coma Scale Verbal Response: Confused Coma Scale Total: 13 - Psychiatric Psychiatric exam: Present: normal affect, normal mood - Skin Skin exam: Present: warm, dry, intact, normal color. Absent: rash, cyanosis, diaphoresis Course Course Narrative: 86-year-old female arrives via squad with reported recent illness, decreased level of alertness, and fever. History provided by patient's daughter who mentions patient has chronic dementia, but has become more weak and less alert. They have had contacted by phone their PCP who prescribed amoxicillin, however patient has not seen for her symptoms yet. Patient seen and examined. she appears somnolent but is arousable, follows commands. Lung sounds coarse, mild rhonchi. O2 sat 90% on room air, otherwise vitals within normal limits. Workup initiated. - Reevaluation(s) Reevaluation #1: Chest x-ray concerning for right lower lobe pneumonia. No leukocytosis. O2 sat 96% on 2 L. Time: 03:08 Reevaluation #2: Patient discussed with and accepted by hospitalist Dr. Sagastume. Time: 04:13 Vital Signs Temperature 99.8 F H 07/08/17 23:55 Pulse Rate 89 07/08/17 23:55 Respiratory Rate 16 07/08/17 23:55 Blood Pressure 128/70 07/08/17 23:55 O2 Sat by Pulse Oximetry 90 07/08/17 23:55 Temperature 97.9 F 07/09/17 04:45 Pulse Rate 84 07/09/17 04:45 Respiratory Rate 14 07/09/17 04:45 Blood Pressure 122/60 07/09/17 04:45 O2 Sat by Pulse Oximetry 97 07/09/17 04:45 Oxygen Delivery Oxygen Delivery Nasal Cannula Weakness - [facility] Narrative Medical decision making narrative: Patient is a 86-year-old female with known history of chronic dementia, presented with decreased level of alertness, and weakness. Patient was discussed with Dr. Rock, who also had face time with patient work agreed with workup and disposition. Patient's chest x-ray findings consistent with pneumonia. Her vitals are stable. No recent admission or hospitalizations. She was discussed with hospitalist who agreed for admission Chest X-Ray 07/09/17 01:08 IMPRESSION: Right upper lobe pneumonia. D/ / Darren Truong MD / Darren Truong MD Interpreting Provider: Darren Truong MD Laboratory Tests 07/09/17 07/09/17 07/09/17 02:03 02:03 02:10 WBC RBC Hgb Hct MCV MCH MCHC RDW Plt Count MPV Immature Gran % Seg Neutrophils % Lymphocytes % Monocytes % Eosinophils % Basophils % Neutrophils # Lymphocytes # Monocytes # Eosinophils # Basophils # Immature Plt Fraction Sodium 138 Potassium 4.4 Chloride 105 Carbon Dioxide 22 L BUN 20 Creatinine 0.91 Est GFR ( Amer) > 60 Est GFR (Non-Af Amer) 58 L BUN/Creatinine Ratio 22 Glucose 160 H Calculated Osmolality 292 Lactic Acid 0.8 Calcium 8.8 Total Bilirubin 0.6 Direct Bilirubin 0.1 Indirect Bilirubin 0.5 AST 23 ALT 14 Alkaline Phosphatase 62 Troponin I < 0.03 Serum Total Protein 5.9 L Albumin 3.5 Globulin 2.4 Albumin/Globulin Ratio 1.5 Urine Color Dark Yellow Urine Clarity Clear Urine pH 5.0 Ur Specific Mayflower 1.030 H Urine Protein Negative Urine Glucose (UA) Normal Urine Ketones Trace H Urine Blood Negative Urine Nitrite Negative Urine Bilirubin Small H Urine Urobilinogen Normal Ur Leukocyte Esterase Small H Urine Microscopic RBC 0-3 Urine Microscopic WBC 5-15 H Ur Squamous Epith Cells Many H Urine Bacteria None Seen Hyaline Casts None Seen Ur Culture Indicated? NO. A 07/09/17 02:12 WBC 8.2 RBC 4.46 Hgb 13.3 Hct 40.1 MCV 89.9 MCH 29.8 MCHC 33.2 RDW 14.3 Plt Count 196 MPV 11.9 Immature Gran % 0.2 Seg Neutrophils % 71.5 Lymphocytes % 11.4 Monocytes % 16.0 Eosinophils % 0.7 Basophils % 0.2 Neutrophils # 5.9 Lymphocytes # 0.9 Monocytes # 1.3 Eosinophils # 0.1 Basophils # 0.0 Immature Plt Fraction 5.5 Sodium Potassium Chloride Carbon Dioxide BUN Creatinine Est GFR ( Amer) Est GFR (Non-Af Amer) BUN/Creatinine Ratio Glucose Calculated Osmolality Lactic Acid Calcium Total Bilirubin Direct Bilirubin Indirect Bilirubin AST ALT Alkaline Phosphatase Troponin I Serum Total Protein Albumin Globulin Albumin/Globulin Ratio Urine Color Urine Clarity Urine pH Ur Specific Mayflower Urine Protein Urine Glucose (UA) Urine Ketones Urine Blood Urine Nitrite Urine Bilirubin Urine Urobilinogen Ur Leukocyte Esterase Urine Microscopic RBC Urine Microscopic WBC Ur Squamous Epith Cells Urine Bacteria Hyaline Casts Ur Culture Indicated? - Lab Data Lab results reviewed: Yes I reviewed the patient's lab results. Result diagrams: 07/09/17 02:12 07/09/17 02:03 Lab Results 07/09/17 07/09/17 07/09/17 Range/Units 02:03 02:03 02:10 WBC (4.3-11.1) K/mcL RBC (3.82-4.97) M/mcL Hgb (11.5-15.4) g/dL Hct (35.3-44.9) % MCV (83.0-100.0) fL MCH (28.0-33.3) pg MCHC (31.6-35.5) g/dL RDW (11.5-14.5) % Plt Count (140-400) K/mcL MPV (9.4-12.4) fL Immature Gran % (0-4) % Seg Neutrophils % % Lymphocytes % % Monocytes % % Eosinophils % % Basophils % % Neutrophils # (1.6-8.9) K/mcL Lymphocytes # (0.6-4.6) K/mcL Monocytes # (0.0-1.3) K/mcL Eosinophils # (0.0-0.6) K/mcL Basophils # (0.0-0.2) K/mcL Immature Plt Fraction (1.1-6.1) % Sodium 138 (136-145) mEq/L Potassium 4.4 (3.5-5.1) mEq/L Chloride 105 (98-107) mEq/L Carbon Dioxide 22 L (23-29) mEq/L BUN 20 (8-23) mg/dL Creatinine 0.91 (0.60-1.20) mg/dL Est GFR ( Amer) > 60 (> 60) Est GFR (Non-Af Amer) 58 L (> 60) BUN/Creatinine Ratio 22 (6-26) Glucose 160 H (70-105) mg/dL Calculated Osmolality 292 (280-300) Lactic Acid 0.8 (0.5-2.2) mmol/L Calcium 8.8 (8.6-10.3) mg/dL Total Bilirubin 0.6 (0.3-1.0) mg/dL Direct Bilirubin 0.1 (0.0-0.2) mg/dL Indirect Bilirubin 0.5 (0.0-1.2) mg/dL AST 23 (13-39) Units/L ALT 14 (7-52) Units/L Alkaline Phosphatase 62 (34-104) Units/L Troponin I < 0.03 (< 0.04) ng/mL Serum Total Protein 5.9 L (6.4-8.9) g/dL Albumin 3.5 (3.5-5.7) g/dL Globulin 2.4 (2.4-3.5) g/dL Albumin/Globulin Ratio 1.5 (1.1-2.2) Urine Color Dark Yellow (Yellow) Urine Clarity Clear (Clear) Urine pH 5.0 (5.0-8.0) pH Units Ur Specific Mayflower 1.030 H (1.010-1.025) Urine Protein Negative (Neg-Trace) mg/dL Urine Glucose (UA) Normal (Normal) mg/dL Urine Ketones Trace H (Negative) mg/dL Urine Blood Negative (Negative) Urine Nitrite Negative (Negative) Urine Bilirubin Small H (Negative) Urine Urobilinogen Normal (Normal) mg/dL Ur Leukocyte Esterase Small H (Negative) Urine Microscopic RBC 0-3 (0-3) per hpf Urine Microscopic WBC 5-15 H (0-3) per hpf Ur Squamous Epith Cells Many H (None-Few) per lpf Urine Bacteria None Seen (None-Few) per hpf Hyaline Casts None Seen (None-Few) per lpf Ur Culture Indicated? NO. A (NO) 07/09/17 Range/Units 02:12 WBC 8.2 (4.3-11.1) K/mcL RBC 4.46 (3.82-4.97) M/mcL Hgb 13.3 (11.5-15.4) g/dL Hct 40.1 (35.3-44.9) % MCV 89.9 (83.0-100.0) fL MCH 29.8 (28.0-33.3) pg MCHC 33.2 (31.6-35.5) g/dL RDW 14.3 (11.5-14.5) % Plt Count 196 (140-400) K/mcL MPV 11.9 (9.4-12.4) fL Immature Gran % 0.2 (0-4) % Seg Neutrophils % 71.5 % Lymphocytes % 11.4 % Monocytes % 16.0 % Eosinophils % 0.7 % Basophils % 0.2 % Neutrophils # 5.9 (1.6-8.9) K/mcL Lymphocytes # 0.9 (0.6-4.6) K/mcL Monocytes # 1.3 (0.0-1.3) K/mcL Eosinophils # 0.1 (0.0-0.6) K/mcL Basophils # 0.0 (0.0-0.2) K/mcL Immature Plt Fraction 5.5 (1.1-6.1) % Sodium (136-145) mEq/L Potassium (3.5-5.1) mEq/L Chloride (98-107) mEq/L Carbon Dioxide (23-29) mEq/L BUN (8-23) mg/dL Creatinine (0.60-1.20) mg/dL Est GFR ( Amer) (> 60) Est GFR (Non-Af Amer) (> 60) BUN/Creatinine Ratio (6-26) Glucose (70-105) mg/dL Calculated Osmolality (280-300) Lactic Acid (0.5-2.2) mmol/L Calcium (8.6-10.3) mg/dL Total Bilirubin (0.3-1.0) mg/dL Direct Bilirubin (0.0-0.2) mg/dL Indirect Bilirubin (0.0-1.2) mg/dL AST (13-39) Units/L ALT (7-52) Units/L Alkaline Phosphatase (34-104) Units/L Troponin I (< 0.04) ng/mL Serum Total Protein (6.4-8.9) g/dL Albumin (3.5-5.7) g/dL Globulin (2.4-3.5) g/dL Albumin/Globulin Ratio (1.1-2.2) Urine Color (Yellow) Urine Clarity (Clear) Urine pH (5.0-8.0) pH Units Ur Specific Mayflower (1.010-1.025) Urine Protein (Neg-Trace) mg/dL Urine Glucose (UA) (Normal) mg/dL Urine Ketones (Negative) mg/dL Urine Blood (Negative) Urine Nitrite (Negative) Urine Bilirubin (Negative) Urine Urobilinogen (Normal) mg/dL Ur Leukocyte Esterase (Negative) Urine Microscopic RBC (0-3) per hpf Urine Microscopic WBC (0-3) per hpf Ur Squamous Epith Cells (None-Few) per lpf Urine Bacteria (None-Few) per hpf Hyaline Casts (None-Few) per lpf Ur Culture Indicated? (NO) - Radiology Data Radiology results reviewed: Yes I reviewed the patient's radiology results. Attestation Statement - Attestation Attestation: I examined this patient and my medical decision-making was reviewed with the Resident Physician. I agree with the documented findings, disposition and treatment plan as described except to the extent set forth below. Findings consistent with weakness and pneumonia. We will start antibiotics and obtain cultures. Patient be admitted for further management.
[2017-07-09 02:10] LABS: Basophils % 0.2 %; Eosinophils # 0.1 K/mcL (0.0-0.6); Eosinophils % 0.7 %; Hematocrit 40.1 % (35.3-44.9); Hemoglobin 13.3 g/dL (11.5-15.4); Immature Granulocytes % 0.2 % (0-4); Immature Platelets 5.5 % (1.1-6.1); Lymphocytes # 0.9 K/mcL (0.6-4.6); Lymphocytes % 11.4 %; Mean Corpuscular HGB Conc 33.2 g/dL (31.6-35.5); Mean Corpuscular Hemoglobin 29.8 pg (28.0-33.3); Mean Corpuscular Volume 89.9 fL (83.0-100.0); Mean Platelet Volume 11.9 fL (9.4-12.4); Monocytes # 1.3 K/mcL (0.0-1.3); Neutrophils # 5.9 K/mcL (1.6-8.9); Platelet Count 196 K/mcL (140-400); Red Blood Count 4.46 M/mcL (3.82-4.97); Red Cell Distribution Width 14.3 % (11.5-14.5); Segmented Neutrophils % 71.5 %
[2017-07-09 02:18] LABS: Bilirubin,Urine Small (Negative); Blood,Urine Negative (Negative); Clarity,Urine Clear (Clear); Color,Urine Dark Yellow (Yellow); Glucose,Urine (UA) Normal (Normal); Ketones,Urine Trace mg/dL (Negative); Leukocyte Esterase,Urine Small (Negative); Nitrite,Urine Negative (Negative); Protein,Urine Negative (Neg-Trace); Urobilinogen,Urine Normal (Normal)
[2017-07-09 02:20] LABS: Bacteria,Urine None Seen per hpf (None-Few); Hyaline Casts,Urine None Seen per lpf (None-Few); RBC,Urine 0-3 per hpf (0-3); Squamous Epithelial Cell,Urine Many per lpf (None-Few)
[2017-07-09 02:20] LABS: Troponin I < 0.03 ng/mL (< 0.04)
[2017-07-09 02:21] LABS: BUN/Creatinine Ratio 22 (6-26); Bilirubin,Direct 0.1 mg/dL (0.0-0.2); Bilirubin,Total 0.6 mg/dL (0.3-1.0); Blood Urea Nitrogen 20 mg/dL (8-23); Calcium 8.8 mg/dL (8.6-10.3); Carbon Dioxide 22 mEq/L (23-29); Chloride 105 mEq/L (98-107); Glucose 160 mg/dL (70-105); Osmolality,Calculated 292 (280-300); Potassium 4.4 mEq/L (3.5-5.1); Sodium 138 mEq/L (136-145); eGFR For African Americans > 60 (> 60); eGFR For Non-African Americans 58 (> 60)
[2017-07-09 02:22] LABS: Alanine Aminotransferase 14 Units/L (7-52); Albumin 3.5 g/dL (3.5-5.7); Albumin/Globulin Ratio 1.5 (1.1-2.2); Alkaline Phosphatase 62 Units/L (34-104); Aspartate Amino Transferase 23 Units/L (13-39); Bilirubin,Indirect 0.5 mg/dL (0.0-1.2); Globulin 2.4 g/dL (2.4-3.5); Total Protein 5.9 g/dL (6.4-8.9)
[2017-07-09] MEDS ORDERED: Levofloxacin 750 MG/150 ML 750 MG/150 ML BAG IVPB ONE (03:03)
[2017-07-09] MEDS ORDERED: Naloxone 0.4 MG/ML INJ IVP PRN (08:26)
[2017-07-09] MEDS ORDERED: Ipratropium/Albuterol Neb 3 ML IH PRN (08:31)
[2017-07-09] MEDS ORDERED: *HR* Dextrose 50 % in Water (Syg) 50 ML SYRINGE IVP PRN (08:34)
[2017-07-09] MEDS ORDERED: Dextrose Gel 15 GM/37.5 ML TUBE PO PRN ×2 (08:34)
[2017-07-09] MEDS ORDERED: D5% in Water 1,000 ML IVC PRN (08:34)
--- NOTE | 2017-07-09 08:38 | Internal Med History&Physical ---
Date of Encounter: 07/09/17 Time of Encounter: 08:34 Internal Medicine - H&P: HPI Chief complaint: Fever, cough, short of breath Admitted From: Home Plans for Post Hospital Care: Home History of present illness: Ms. Tran is a 86 year old female with history of chronic dementia, hypertension, diabetes mellitus, A. fib on aspirin brought to ER by squad with complaint of fever, cough, shortness of breath, generalized weakness started to 3 days ago. Patient lives with her daughter who called her PCP and amoxicillin was started on phone but patient continued to decline therefore daughter got concerned and called EMS. In ER initial lab done with no significant finding. Patient had mild raised and temperature 99.8 SPO2 90% on room air and chest x- ray suggestive of right upper lobe pneumonia. Therefore ER physician called on- call hospitalists for the admission with the diagnosis of pneumonia. Patient is poor historian and mostly in formation of obtained from her daughter. complained of fever, chills, nausea, cough with productive white sputum, shortness of breath but denies chest pain, headache, dizziness, abdominal pain, urinary or bowel complaint. Past Med Surg Social Fam HX - Past Medical History Medical history: non-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, dementia, diabetes, hyperlipidemia, hypertension, thyroid disease, other Psychiatric history: no psych history - Past Surgical History Surgical History: orthopedic, other - Social History Smoking Status: Never smoker Smokeless Tobacco Status: No Alcohol use: none Drug use: none - Family History Father Living Status: Hx Family Cardiac Disorders: Yes (HEART ATTACK) Internal Medicine - H&P: Meds Aspirin Enteric Coated [Aspirin EC] 81 mg PO QPM 01/27/15 [History] Docusate [Colace] 100 mg PO BID #60 capsule 03/16/15 [Rx] Acetaminophen [Tylenol Arthritis] 650 mg PO DAILY PRN 07/16/15 [History] Enalapril Maleate [Vasotec] 10 mg PO DAILY 07/16/15 [History] Glimepiride [Amaryl] 2 mg PO 0800 10/02/16 [History] Diltiazem CD (24hr) [Cardizem CD] 120 mg PO DAILY #30 cap.er.24h 10/03/16 [Rx] Amoxicillin [Amoxil] 500 mg PO TID 07/09/17 [History] Atorvastatin [Lipitor] 10 mg PO HS 07/09/17 [History] Calcium Carbonate/Vitamin D3 [Calcium 600 + Vit D Softgel] 1 tab PO BID [History] Donepezil [Aricept] 5 mg PO HS 07/09/17 [History] Levothyroxine Sodium [Levothyroxine Sodium] 50 mcg PO QAM 07/09/17 [History] Metformin HCl [Glucophage] 1,000 mg PO BID 07/09/17 [History] Montelukast [Singulair] 10 mg PO DAILY 07/09/17 [History] Multivitamin [One Daily Multivitamin] 1 tab PO QAM 07/09/17 [History] Pioglitazone [Actos] 15 mg PO DAILY 07/09/17 [History] 3 Allergy/AdvReac Type Severity Reaction Status Date / Time No Known Allergies Allergy Verified 07/09/17 08:05 All Systems PM: as documented above in the HPI. - Constitutional Vitals: Temp Pulse Resp BP Pulse Ox 97.9 F 84 14 122/60 97 07/09/17 04:45 07/09/17 04:45 07/09/17 04:45 07/09/17 04:45 07/09/17 04:45 Exam: General appearance: No acute distress, alert awake oriented to person Head exam: Atraumatic Eye exam: EOMI, PERRLA ENT exam: Moist oral mucosa Neck nontender, supple Respiratory exam: Crepitation on right upper lobe Cardiovascular exam: Regular rate , irregular rhythm, no systolic murmur Abdominal exam: Soft, nontender, nondistended, positive bowel sounds Extremities exam: No calf tenderness, no pedal edema Present: Skin-no rash, warm, dry, intact Neurological exam: CN II-XII grossly intact, no focal deficits. No facial droop. Slow speech. Declined to walk due to generalized weakness Internal Med - H&P Results - Labs CBC & Chem 7: 07/09/17 02:12 07/09/17 02:03 - Assessment and plan (1) Right upper lobe pneumonia Current Visit: Yes Status: Chronic Assessment and plan: Symptomatic with finding of fever, cough, shortness of breath failed outpatient therapy with amoxicillin though she had only 1 days but continued to decline. Chest x-ray suggestive of right upper lobe pneumonia. Levaquin IV, oxygen supplementation, pulse oximetry, DuoNeb, spirometry started. Qualifiers: Pneumonia type: due to unspecified organism Qualified Code(s): J18.1 - Lobar pneumonia, unspecified organism (2) Diabetes mellitus Current Visit: Yes Status: Acute Assessment and plan: A1c ordered. Accu-Chek, sliding scale insulin coverage. Diabetic diet. Hold OHA at present Qualifiers: Diabetes mellitus type: type 2 Diabetes mellitus socket welder helper insulin use: without socket welder helper use Diabetes mellitus complication status: without complication Qualified Code(s): E11.9 - Type 2 diabetes mellitus without complications (3) Hypertension Current Visit: Yes Status: Chronic Assessment and plan: Monitor BP. Continue home medicine Qualifiers: Hypertension type: essential hypertension Qualified Code(s): I10 - Essential (primary) hypertension (4) A-fib Current Visit: Yes Status: Chronic Assessment and plan: Stable. Rate control. Continue home medicine. Patient takes aspirin but no other anticoagulant. Qualifiers: Atrial fibrillation type: chronic Qualified Code(s): I48.2 - Chronic atrial fibrillation (5) Dehydration Current Visit: No Status: Acute Assessment and plan: Decrease oral intake due to acute illness for last couple of days. Urine with increased specific gravity. Gentle hydration normal saline 75 mL per hour with a strict I&O's. (6) DVT prophylaxis Current Visit: No Status: Acute Assessment and plan: SCDs - Time Spent With Patient Total time spent is greater than 50% in coordination of care (as documented) at patient's floor/unit and/or counseling patient: 25 - 35 minutes
--- NOTE | 2017-07-09 08:55 | Electrocardiograph Report ---
[facility] Test Date: 2017-07-09 Pat Name: Anyi Tran Department: 102 Room: 2S7 Gender: F Manager Country: [place] : 1930 Requested By: Eben Singh Order Number: [id number] Reading MD: Jah De La O Measurements Intervals Shell Rate: 88 P: 56 SC: 163 QRS: -63 QRSD: 122 T: 29 QT: 391 QTc: 437 Interpretive Statements SINUS RHYTHM RIGHT BUNDLE BRANCH BLOCK [120+ ms QRS DURATION, UPRIGHT V1, 40+ ms S IN I/aVL/V4/V5/V6] LEFT ANTERIOR FASCICULAR BLOCK [QRS AXIS <= -45, QR IN I, RS IN II] POSSIBLE ANTERIOR MYOCARDIAL INFARCTION [30 ms Q WAVE IN V3/V4, OR R < 0.2 mV IN V4], PROBABLY OLD Electronically Signed On 07-09-2017 8:53:29 EDT by Jah De La O
[2017-07-09] MEDS: Diltiazem CD (24hr) 120 MG CAPSULE PO SCH (09:29)
[2017-07-09] MEDS: Lisinopril 20 MG TABLET PO SCH (09:29)
[2017-07-09] MEDS: 0.9 % Sodium Chloride 1,000 ML IVC SCH ×2 (09:29→22:52)
[2017-07-09] MEDS: Multivit/Ca/Min/Fe/FA 1 TAB TABLET PO SCH (09:30)
[2017-07-09] MEDS: Cholecalciferol (D-3) 1,000 UNIT TABLET PO SCH (09:30)
[2017-07-09 09:54] LABS: Estimated Average Glucose 154 mg/dl
[2017-07-09] MEDS: Insulin LISPRO 300 UNITS/3 ML VIAL SQ SCH ×2 (13:24→18:35)
[2017-07-09] MEDS: Aspirin Enteric Coated 81 MG Tablet PO SCH (18:38)
[2017-07-10 05:04] LABS: Basophils % 0.4 %; Eosinophils # 0.1 K/mcL (0.0-0.6); Eosinophils % 1.3 %; Hematocrit 39.2 % (35.3-44.9); Hemoglobin 12.7 g/dL (11.5-15.4); Immature Granulocytes % 0.5 % (0-4); Lymphocytes # 0.9 K/mcL (0.6-4.6); Lymphocytes % 16.5 %; Mean Corpuscular HGB Conc 32.4 g/dL (31.6-35.5); Mean Corpuscular Hemoglobin 29.1 pg (28.0-33.3); Mean Corpuscular Volume 89.7 fL (83.0-100.0); Mean Platelet Volume 11.1 fL (9.4-12.4); Monocytes # 0.8 K/mcL (0.0-1.3); Monocytes % 14.4 %; Neutrophils # 3.7 K/mcL (1.6-8.9); Platelet Count 188 K/mcL (140-400); Red Blood Count 4.37 M/mcL (3.82-4.97); Red Cell Distribution Width 14.1 % (11.5-14.5); Segmented Neutrophils % 66.9 %
[2017-07-10 05:20] LABS: BUN/Creatinine Ratio 18 (6-26); Blood Urea Nitrogen 13 mg/dL (8-23); Calcium 8.5 mg/dL (8.6-10.3); Carbon Dioxide 25 mEq/L (23-29); Chloride 105 mEq/L (98-107); Glucose 142 mg/dL (70-105); Osmolality,Calculated 287 (280-300); Potassium 3.9 mEq/L (3.5-5.1); Sodium 137 mEq/L (136-145); eGFR For African Americans > 60 (> 60); eGFR For Non-African Americans > 60 (> 60)
[2017-07-10] MEDS: Levofloxacin 750 MG/150 ML 750 MG/150 ML BAG IVPB SCH (07:45)
[2017-07-10] MEDS: Diltiazem CD (24hr) 120 MG CAPSULE PO SCH (07:46)
[2017-07-10] MEDS: Cholecalciferol (D-3) 1,000 UNIT TABLET PO SCH (07:47)
[2017-07-10] MEDS: Lisinopril 20 MG TABLET PO SCH (07:47)
[2017-07-10] MEDS: Multivit/Ca/Min/Fe/FA 1 TAB TABLET PO SCH (07:47)
[2017-07-10] MEDS: Insulin LISPRO 300 UNITS/3 ML VIAL SQ SCH ×4 (07:53→21:24)
[2017-07-10] MEDS: 0.9 % Sodium Chloride 1,000 ML IVC SCH (11:29)
--- NOTE | 2017-07-10 15:15 | Internal Med Progress Note ---
Date of Encounter: 07/10/17 Time of Encounter: 10:15 - Assessment and plan (1) Right upper lobe pneumonia Current Visit: Yes Status: Acute Assessment and plan: Clinically doing better. No fevers. Cultures are so far negative. Treating patient with Levaquin. WBC count is normal. Patient is on 2 L nasal cannula. Plan for discharge tomorrow if patient continues to improve at all. Qualifiers: Pneumonia type: due to unspecified organism Qualified Code(s): J18.1 - Lobar pneumonia, unspecified organism (2) Dehydration Current Visit: Yes Status: Resolved Assessment and plan: Treated with IV hydration. (3) Diabetes mellitus Current Visit: Yes Status: Chronic Assessment and plan: Blood sugars are currently well controlled. Continue diabetic diet. Continue current sliding scale insulin. Qualifiers: Diabetes mellitus type: type 2 Diabetes mellitus long term care administrator insulin use: without long term care administrator use Diabetes mellitus complication status: without complication Qualified Code(s): E11.9 - Type 2 diabetes mellitus without complications (4) Hypertension Current Visit: Yes Status: Chronic Assessment and plan: Blood pressure elevated this morning. Will continue antihypertensive regimen. Patient is currently on Cardizem, lisinopril. Qualifiers: Hypertension type: essential hypertension Qualified Code(s): I10 - Essential (primary) hypertension (5) A-fib Current Visit: Yes Status: Chronic Assessment and plan: Rate controlled. Continue Cardizem. Qualifiers: Atrial fibrillation type: chronic Qualified Code(s): I48.2 - Chronic atrial fibrillation (6) DVT prophylaxis Current Visit: No Status: Acute Assessment and plan: Continue subcutaneous heparin - Time Spent With Patient Total time spent is greater than 50% in coordination of care (as documented) at patient's floor/unit and/or counseling patient: - Subjective Interval history: Patient lying in bed. Does not answer questions. Does have history of dementia. According to nursing staff, this is her baseline. no fever reported overnight. On 2 L nasal cannula. Does not appear to be in any discomfort - Constitutional Vitals: Temp Pulse Resp BP Pulse Ox 97.9 F 82 18 160/85 98 07/10/17 15:06 07/10/17 15:06 07/10/17 15:06 07/10/17 15:06 07/10/17 15:06 General appearance: Present: cooperative, no acute distress. Absent: answers questions appropriately Exam: Patient is alert but not answering questions or following commands at this time - Neck Neck exam general surgery: Present: supple, trachea midline. Absent: lymphadenopathy - Respiratory Respiratory exam: Present: CTAB. Absent: accessory muscle use, rales, rhonchi, wheezes - Cardiovascular Cardiovascular exam: Present: RRR, +S1, +S2. Absent: diastolic murmur, gallop, rubs, systolic murmur - GI/Abdominal GI/Abdominal exam: Present: normal bowel sounds, soft, no peritoneal signs. Absent: distended, tenderness - Extremities Exam Extremities exam: Present: warm, radial pulses palpable and symmetrical. Absent : calf tenderness, cyanotic, pedal edema - Neurological Exam Neurological exam: Present: alert. Absent: facial droop - Psychiatric Psychiatric exam: Present: flat affect Internal Medicine: Result - Labs CBC & Chem 7: 07/10/17 04:25 07/10/17 04:25 Labs: Short CBC 07/10/17 Range/Units 04:25 WBC 5.6 (4.3-11.1) K/mcL Hgb 12.7 (11.5-15.4) g/dL Hct 39.2 (35.3-44.9) % Plt Count 188 (140-400) K/mcL Neutrophils # 3.7 (1.6-8.9) K/mcL BMP 07/10/17 04:25 Sodium 137 Potassium 3.9 Chloride 105 Carbon Dioxide 25 BUN 13 Creatinine 0.71 Glucose 142 H Calcium 8.5 L - VTE Documentation of Mechanical Device: Intermittent pneumatic compression device Consult Discharge Plan - Plan
[2017-07-10] MEDS: Aspirin Enteric Coated 81 MG Tablet PO SCH (17:13)
[2017-07-10] MEDS: *HR* Heparin 5,000 UNIT/ML VIAL SQ SCH (17:14)
[2017-07-10] MEDS: Acetaminophen 325 MG TABLET PO PRN (18:22)
[2017-07-11] MEDS: Acetaminophen 325 MG TABLET PO PRN (05:51)
[2017-07-11] MEDS: *HR* Heparin 5,000 UNIT/ML VIAL SQ SCH ×2 (05:52→18:12)
[2017-07-11] MEDS: Multivit/Ca/Min/Fe/FA 1 TAB TABLET PO SCH (09:45)
[2017-07-11] MEDS: Cholecalciferol (D-3) 1,000 UNIT TABLET PO SCH (09:45)
[2017-07-11] MEDS: Lisinopril 20 MG TABLET PO SCH (09:45)
[2017-07-11] MEDS: Insulin LISPRO 300 UNITS/3 ML VIAL SQ SCH ×3 (09:46→21:35)
[2017-07-11] MEDS: Diltiazem CD (24hr) 120 MG CAPSULE PO SCH (09:46)
--- NOTE | 2017-07-11 15:25 | Internal Med Progress Note ---
Date of Encounter: 07/11/17 Time of Encounter: 08:40 - Assessment and plan (1) Altered mental status Current Visit: Yes Status: Acute Assessment and plan: Could be related to pneumonia/underlying dementia. We will monitor for now. If this persists, will consider CT scan of the head. Ammonia level is normal. Qualifiers: Altered mental status type: somnolence Qualified Code(s): R40.0 - Somnolence (2) Right upper lobe pneumonia Current Visit: Yes Status: Acute Assessment and plan: Continue levofloxacin. Cultures are so far negative. WBC count is also normal. Physical therapy and social media analyst consulted for appropriate discharge planning once patient is medically stable. Qualifiers: Pneumonia type: due to unspecified organism Qualified Code(s): J18.1 - Lobar pneumonia, unspecified organism (3) Dehydration Current Visit: Yes Status: Resolved Assessment and plan: With IV hydration. (4) Diabetes mellitus Current Visit: Yes Status: Chronic Assessment and plan: Blood sugars are fairly controlled. Continue diabetic diet as tolerated. Continue sliding scale insulin. Qualifiers: Diabetes mellitus type: type 2 Diabetes mellitus halfway insulin use: without ferry terminal agent use Diabetes mellitus complication status: without complication Qualified Code(s): E11.9 - Type 2 diabetes mellitus without complications (5) Hypertension Current Visit: Yes Status: Chronic Assessment and plan: Blood pressure is elevated at this time but appropriate for her age. Continue Cardizem and lisinopril Qualifiers: Hypertension type: essential hypertension Qualified Code(s): I10 - Essential (primary) hypertension (6) A-fib Current Visit: Yes Status: Chronic Assessment and plan: rate controlled. Continue Cardizem Qualifiers: Atrial fibrillation type: chronic Qualified Code(s): I48.2 - Chronic atrial fibrillation (7) DVT prophylaxis Current Visit: No Status: Acute Assessment and plan: On subcutaneous heparin - Time Spent With Patient Total time spent is greater than 50% in coordination of care (as documented) at patient's floor/unit and/or counseling patient: - Subjective Interval history: Patient was very somnolent this morning. Not following commands. No fever or chills reported overnight. She has not been eating much today. According to nursing staff, family reported the patient does get encephalopathic occasionally and requires placement to skilled rehabilitation after hospitalization frequently. - Constitutional Vitals: Temp Pulse Resp BP Pulse Ox 98.4 F 70 18 146/66 98 07/11/17 15:00 07/11/17 15:00 07/11/17 15:00 07/11/17 15:00 07/11/17 15:00 General appearance: Present: cooperative, no acute distress. Absent: answers questions appropriately - Neck Neck exam general surgery: Present: supple, trachea midline. Absent: lymphadenopathy - Respiratory Respiratory exam: Present: decreased breath sounds (At both bases). Absent: accessory muscle use, rales, rhonchi, wheezes - Cardiovascular Cardiovascular exam: Present: RRR, +S1, +S2. Absent: diastolic murmur, gallop, rubs, systolic murmur - GI/Abdominal GI/Abdominal exam: Present: normal bowel sounds, soft, no peritoneal signs. Absent: distended, tenderness - Extremities Exam Extremities exam: Present: warm, radial pulses palpable and symmetrical. Absent : calf tenderness, cyanotic, pedal edema - Neurological Exam Neurological exam: Present: altered - Skin Skin exam: Present: dry, intact Internal Medicine: Result - Labs CBC & Chem 7: 07/10/17 04:25 07/10/17 04:25 - VTE Documentation of Mechanical Device: Intermittent pneumatic compression device Consult Discharge Plan - Plan Referrals: Barry,Amelia Prado CNP [Primary Care Provider] -
[2017-07-11] MEDS: Aspirin Enteric Coated 81 MG Tablet PO SCH (18:12)
[2017-07-12] MEDS: *HR* Heparin 5,000 UNIT/ML VIAL SQ SCH (05:21)
[2017-07-12 07:01] VITALS: BP 155/81
[2017-07-12 07:46] LABS: BUN/Creatinine Ratio 18 (6-26); Blood Urea Nitrogen 15 mg/dL (8-23); Calcium 9.1 mg/dL (8.6-10.3); Carbon Dioxide 26 mEq/L (23-29); Chloride 103 mEq/L (98-107); Glucose 148 mg/dL (70-105); Osmolality,Calculated 292 (280-300); Sodium 139 mEq/L (136-145); eGFR For African Americans > 60 (> 60); eGFR For Non-African Americans > 60 (> 60)
[2017-07-12 08:06] LABS: Basophils # 0.1 K/mcL (0.0-0.2); Basophils % 0.7 %; Eosinophils # 0.1 K/mcL (0.0-0.6); Eosinophils % 1.4 %; Hematocrit 38.7 % (35.3-44.9); Lymphocytes % 14.4 %; Mean Corpuscular HGB Conc 33.6 g/dL (31.6-35.5); Mean Corpuscular Hemoglobin 29.9 pg (28.0-33.3); Mean Platelet Volume 10.9 fL (9.4-12.4); Monocytes # 0.8 K/mcL (0.0-1.3); Monocytes % 10.5 %; Neutrophils # 5.2 K/mcL (1.6-8.9); Platelet Count 243 K/mcL (140-400); Red Blood Count 4.35 M/mcL (3.82-4.97); Red Cell Distribution Width 13.8 % (11.5-14.5)
[2017-07-12] MEDS: Lisinopril 20 MG TABLET PO SCH (08:22)
[2017-07-12] MEDS: Diltiazem CD (24hr) 120 MG CAPSULE PO SCH (08:22)
[2017-07-12] MEDS: Multivit/Ca/Min/Fe/FA 1 TAB TABLET PO SCH (08:22)
[2017-07-12] MEDS: Cholecalciferol (D-3) 1,000 UNIT TABLET PO SCH (08:22)
[2017-07-12] MEDS: Levofloxacin 750 MG/150 ML 750 MG/150 ML BAG IVPB SCH (08:23)
--- NOTE | 2017-07-12 09:44 | Discharge Summary ---
- NOTES TO OUTPATIENT PROVIDER Notes to Outpatient Provider: Patient admitted with right upper lobe pneumonia. Improved clinically. Will be discharged on oral antibiotics to skilled rehabilitation today. Date of Encounter: 07/12/17 Time of Encounter: 08:40 - Discharge Diagnosis (1) Right upper lobe pneumonia Priority: Primary Status: Acute Qualifiers: Pneumonia type: due to unspecified organism Qualified Code(s): J18.1 - Lobar pneumonia, unspecified organism (2) Altered mental status Priority: Secondary Status: Resolved Qualifiers: Altered mental status type: somnolence Qualified Code(s): R40.0 - Somnolence (3) Dehydration Priority: Secondary Status: Resolved (4) Diabetes mellitus Priority: Secondary Status: Chronic Qualifiers: Diabetes mellitus type: type 2 Diabetes mellitus exterminator helper insulin use: without longterm use Diabetes mellitus complication status: without complication Qualified Code(s): E11.9 - Type 2 diabetes mellitus without complications (5) Hypertension Priority: Secondary Status: Chronic Qualifiers: Hypertension type: essential hypertension Qualified Code(s): I10 - Essential (primary) hypertension (6) A-fib Priority: Secondary Status: Chronic Qualifiers: Atrial fibrillation type: chronic Qualified Code(s): I48.2 - Chronic atrial fibrillation (7) DVT prophylaxis Priority: Secondary Status: Acute Hospital course: Ms. Tran is a 86 year old female Patient with history of dementia who was admitted here with right upper lobe pneumonia. She was treated with IV antibiotics and has slowly improved. She is close to her baseline but has been recommended skilled rehabilitation. She will be discharged to skilled rehabilitation facility later today and will complete antibiotic treatment with levofloxacin. Her cultures have been negative here. Patient is mostly nonverbal at baseline and did have increased somnolence yesterday but this has since resolved. Her ammonia levels were normal. She will complete 6 more days of antibiotics for pneumonia. Discharge discussed with: patient, nurse - Time Spent with Patient Total time spent providing and/or coordinating discharge services: Greater than 30 minutes (32 min) - Discharge Medications Prescriptions: levoFLOXacin [Levaquin] 750 mg PO DAILY #6 tablet Home Medications: Aspirin Enteric Coated [Aspirin EC] 81 mg PO QPM 01/27/15 [History] Docusate [Colace] 100 mg PO BID #60 capsule 03/16/15 [Rx] Acetaminophen [Tylenol Arthritis] 650 mg PO DAILY PRN 07/16/15 [History] Enalapril Maleate [Vasotec] 10 mg PO DAILY 07/16/15 [History] Glimepiride [Amaryl] 2 mg PO 0800 10/02/16 [History] Diltiazem CD (24hr) [Cardizem CD] 120 mg PO DAILY #30 cap.er.24h 10/03/16 [Rx] Atorvastatin [Lipitor] 10 mg PO HS 07/09/17 [History] Calcium Carbonate/Vitamin D3 [Calcium 600 + Vit D Softgel] 1 tab PO BID [History] Donepezil [Aricept] 5 mg PO HS 07/09/17 [History] Levothyroxine Sodium 50 mcg PO QAM 07/09/17 [History] Metformin HCl [Glucophage] 1,000 mg PO BID 07/09/17 [History] Montelukast [Singulair] 10 mg PO DAILY 07/09/17 [History] Multivitamin [One Daily Multivitamin] 1 tab PO QAM 07/09/17 [History] Pioglitazone [Actos] 15 mg PO DAILY 07/09/17 [History] levoFLOXacin [Levaquin] 750 mg PO DAILY #6 tablet 07/12/17 [Rx] Allergies/Adverse Reactions: 3 Allergy/AdvReac Type Severity Reaction Status Date / Time No Known Allergies Allergy Verified 07/09/17 08:05 Date of admission: 07/09/17 10:59 Primary care physician: Amelia Reddy CNP Consults: 07/10/17 16:29 Consult to Physical Therapy [CONS] Routine Comment: Evaluate, develop and implement POC Reason for Consult: daughter reports increased weakness, deconditioning Does patient have active BEDREST order?: No Is patient medically & hemodynamically stable?: Yes Patient assessed for mobility or mobilized this visit?: No 07/10/17 16:30 Consult to Occupational Therapy [CONS] Routine Comment: Evaluate, develop and implement POC Reason for Consult: daughter reports increased weakness, deconditioning Does patient have active BEDREST order?: No Is patient medically & hemodynamically stable?: Yes Patient assessed for mobility or mobilized this visit?: No Discharging clinician: Thom Hull Anticipated date of discharge: 07/12/17 - Constitutional Vitals: Temp Pulse Resp BP Pulse Ox 98.2 F 87 16 155/81 96 07/12/17 06:57 07/12/17 06:57 07/12/17 06:57 07/12/17 06:57 07/12/17 06:57 General appearance: Present: cooperative, no acute distress. Absent: answers questions appropriately - Respiratory Respiratory exam: Absent: accessory muscle use, rales, rhonchi, wheezes Additional comments: coarse breath sounds in both upper lobes - Cardiovascular Cardiovascular exam: Present: RRR, +S1, +S2. Absent: diastolic murmur, gallop, rubs, systolic murmur - GI/Abdominal GI/Abdominal exam: Present: normal bowel sounds, soft, no peritoneal signs. Absent: distended, tenderness - Extremities Exam Extremities exam: Present: warm, radial pulses palpable and symmetrical. Absent : calf tenderness, cyanotic, pedal edema - Neurological Exam Neurological exam: Present: alert. Absent: facial droop - Skin Skin exam: Present: dry, intact - Patient Status Disposition: Transfer SNF Condition: Good Functional capacity at discharge: bed bound Overall status at discharge: patient is progressing back to baseline - Discharge Instructions Instructions: Pneumonia (DC) Follow Up With: Amelia Reddy MEDICAL EDITOR [Primary Care Provider] - (in 1-2 weeks) Forms: ED Satisfaction Letter, Work/School Release - Diet and Activity Activity: as per physical therapy Diet: advance to your usual diet - VTE Documentation of Mechanical Device: Intermittent pneumatic compression device
--- NOTE | 2017-07-12 09:52 | Physician Discharge Referral ---
ExtendedCare Referral Info Provider in Charge after Transfer: PCP Institutional Level of Care: Skilled - Diagnosis (1) Right upper lobe pneumonia Priority: Primary Status: Acute (2) Altered mental status Priority: Secondary Status: Resolved (3) Dehydration Priority: Secondary Status: Resolved (4) Diabetes mellitus Priority: Secondary Status: Chronic (5) Hypertension Priority: Secondary Status: Chronic (6) A-fib Priority: Secondary Status: Chronic (7) DVT prophylaxis Priority: Secondary Status: Acute Prognosis: Fair Aware of Diagnosis: Family Aware of Prognosis: Family - Transfer Medications Prescriptions: levoFLOXacin [Levaquin] 750 mg PO DAILY #6 tablet Home Medications: Aspirin Enteric Coated [Aspirin EC] 81 mg PO QPM 01/27/15 [History] Docusate [Colace] 100 mg PO BID #60 capsule 03/16/15 [Rx] Acetaminophen [Tylenol Arthritis] 650 mg PO DAILY PRN 07/16/15 [History] Enalapril Maleate [Vasotec] 10 mg PO DAILY 07/16/15 [History] Glimepiride [Amaryl] 2 mg PO 0800 10/02/16 [History] Diltiazem CD (24hr) [Cardizem CD] 120 mg PO DAILY #30 cap.er.24h 10/03/16 [Rx] Atorvastatin [Lipitor] 10 mg PO HS 07/09/17 [History] Calcium Carbonate/Vitamin D3 [Calcium 600 + Vit D Softgel] 1 tab PO BID [History] Donepezil [Aricept] 5 mg PO HS 07/09/17 [History] Levothyroxine Sodium 50 mcg PO QAM 07/09/17 [History] Metformin HCl [Glucophage] 1,000 mg PO BID 07/09/17 [History] Montelukast [Singulair] 10 mg PO DAILY 07/09/17 [History] Multivitamin [One Daily Multivitamin] 1 tab PO QAM 07/09/17 [History] Pioglitazone [Actos] 15 mg PO DAILY 07/09/17 [History] levoFLOXacin [Levaquin] 750 mg PO DAILY #6 tablet 07/12/17 [Rx] Allergies/Adverse Reactions: 3 Allergy/AdvReac Type Severity Reaction Status Date / Time No Known Allergies Allergy Verified 07/09/17 08:05 - Respiratory Orders Oxygen / L per min (Keep sats >90%) Smoking Cessation: Smoking cessation has been advised. For more information, call the [place] Tobacco Quit Line at 5-906-SMSI-NOW. - Ancillary Orders May use pressure relief devices daily prn - Advance Directives Code Status: Full Code - Mobility Orders Other (per PT) - Rehabiliation Orders Rehab Potential: Fair Rehab Orders: Evaluation for Physical Therapy, Evaluation for Occupational Therapy - Diet Orders Cardiac CERTIFICATION: I certify that the transfer of the above named patient to an Extended Care Facility is necessary for the continuing treatment of the diagnosis listed. The above information is true and accurate reflection of patient's current condition. Confidential - Redisclosure prohibited without a patient's written consent.
== END 2017-07-12 12:08 | DRG 195 ==
LOC: EMEROO 23:50 → 2SOUTHHOLD 23:50 → SUATTDRO 07-09 10:59 → 3ANU 07-09 15:51
PROVIDERS: ADMIT Family Medicine; ATTEND Internal Medicine

== ENCOUNTER 2017-08-02 13:38 | Inpatient (IN) ==
--- NOTE | 2017-08-02 13:43 | Emergency Department Note ---
Disposition Clinical Impression: Failure to thrive in adult, REENA (acute kidney injury) Disposition: Admitted As Inpatient Condition: Undetermined Referrals: Amelia Reddy CNP [Primary Care Provider] - Forms: ED Satisfaction Letter, Work/School Release Time of Disposition: 15:03 General Adult HPI - General Chief complaint: ED General Medical Stated complaint: failure to thrive Time Seen by Provider: 08/02/17 13:40 Source: patient, EMS Mode of arrival: EMS Limitations: no limitations Nursing Notes Reviewed: Yes Vital Signs Reviewed: Yes - History of Present Illness HPI Narrative: 86-year-old female with history of dementia arrives to the emergency department with family concern for failure to thrive. The patient recently was discharged from a custodial facility for rehabilitation. The family notes that the patient has not been eating or drinking since discharge and is refusing to participate in any activities at home. The patient's family states they are unable to care for her home as the patient is having bowel movements on the floor and unable to make it to the bathroom. The patient has no complaints at this time and is nonproductive respiratory in history gathering or physical exam. She is answering questions appropriately when asked but is non- respiratory when examined. Patient states that she does not know what is going on and just feels as though she just does not want to do anything. She denies any specific point tingling chest pain, difficulty breathing, nausea, vomiting, abdominal pain, fevers, chills. When asked on why she does not want to eat or drink she refuses to answer. The patient closes her eyes and stops talking at that time. - Related Data Home Medications Medication Instructions Recorded Confirmed Aspirin Enteric Coated [Aspirin EC] 81 mg PO QPM 01/27/15 08/02/17 Acetaminophen [Tylenol Arthritis] 650 mg PO DAILY PRN 07/16/15 08/02/17 Enalapril Maleate [Vasotec] 10 mg PO DAILY 07/16/15 08/02/17 Glimepiride [Amaryl] 2 mg PO 0800 10/02/16 08/02/17 Atorvastatin [Lipitor] 10 mg PO HS 07/09/17 08/02/17 Calcium Carbonate/Vitamin D3 1 tab PO BID 07/09/17 08/02/17 [Calcium 600 + Vit D Softgel] Donepezil [Aricept] 5 mg PO HS 07/09/17 08/02/17 Levothyroxine Sodium 50 mcg PO QAM 07/09/17 08/02/17 Metformin HCl [Glucophage] 1,000 mg PO BID 07/09/17 08/02/17 Montelukast [Singulair] 10 mg PO DAILY 07/09/17 08/02/17 Multivitamin [One Daily 1 tab PO QAM 07/09/17 08/02/17 Multivitamin] Pioglitazone [Actos] 15 mg PO DAILY 07/09/17 08/02/17 Docusate [Colace] 100 mg PO BID PRN 08/02/17 08/02/17 Sertraline [Zoloft] 50 mg PO DAILY 08/02/17 08/02/17 Previous Rx's Medication Instructions Recorded Diltiazem CD (24hr) [Cardizem CD] 120 mg PO DAILY #30 cap.er.24h 10/03/16 Allergies Allergy/AdvReac Type Severity Reaction Status Date / Time No Known Allergies Allergy Verified 07/09/17 08:05 All systems ED: reviewed and negative except as stated. Constitutional: Reports: weakness. Denies: fever, chills ENT ED: Denies: congestion Cardiovascular: Denies: chest pain Respiratory: Denies: dyspnea Gastrointestinal: Denies: abdominal pain, diarrhea, constipation Genitourinary: Denies: dysuria Neurological: Reports: weakness. Denies: confusion Psychiatric: Reports: depression Past Medical History - Past Medical History Source: old records reviewed Medical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: dementia, diabetes, hyperlipidemia, hypertension, thyroid disease, other Surgical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: orthopedic, other Psychiatric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: depression ANIMAL NUTRITION CONSULTANT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: non-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 - Social History Smoking Status: Never smoker Smokeless Tobacco Status: No Alcohol use: Reports: none Drug use: Reports: none Physical Exam - General Limitations: no limitations General appearance: alert, in no apparent distress - Head Head exam: atraumatic, normocephalic, normal inspection - Eye Eye exam: Present: normal appearance, PERRL, EOMI - ENT ENT exam: normal exam, normal oropharynx, mucous membranes moist - Neck Neck exam: Present: normal inspection, full ROM, trachea midline - Chest Chest inspection: Present: normal inspection, symmetric chest wall rise - Respiratory Respiratory exam: Present: normal lung sounds bilaterally - Cardiovascular Cardiovascular exam: Present: normal rhythm, tachycardia, normal heart sounds - Abdominal Exam Abdominal exam: Present: soft, Non-Tender. Absent: tenderness, distention, guarding, rebound, rigidity - Extremities Exam Extremities exam: Present: normal inspection, full ROM. Absent: tenderness, pedal edema - Neurological Exam Neurological exam: Present: alert, CN II-XII intact - Expanded Neurological Exam Patient oriented to: Present: person, place Speech: Present: fluid speech Cranial nerves: EOM function (II, III, IV, ): Normal, facial sensation (V): Normal, facial palsy (VII): Normal Coma Scale Eye Opening: Spontaneous Coma Scale Motor Response: Obeys Commands Coma Scale Verbal Response: Oriented Coma Scale Total: 15 - Skin Skin exam: Present: warm, dry, intact, normal color Course Vital Signs Temperature 98.1 F 08/02/17 13:40 Pulse Rate 98 08/02/17 13:40 Respiratory Rate 17 08/02/17 13:40 Blood Pressure 128/60 08/02/17 13:40 O2 Sat by Pulse Oximetry 94 08/02/17 13:40 Temperature 98.1 F 08/02/17 13:40 Pulse Rate 98 08/02/17 13:40 Respiratory Rate 17 08/02/17 13:40 Blood Pressure 128/60 08/02/17 13:40 O2 Sat by Pulse Oximetry 94 08/02/17 13:40 Oxygen Delivery Oxygen Delivery Room Air Medical Decision Making - [facility] Narrative Medical decision making narrative: Patient's workup in the emergency department given strict findings consistent with dehydration. Given the patient's failure to thrive at home and concern for daughter who states that she cannot take care of at home, we will get the patient to the hospital with likely admission to custodial facility. The patient's daughter was made aware and agrees to plan. No further questions or concerns noted at this time. The hospitalist is been paged and was accepted by Dr. Hinson. - Medical Records Medical records reviewed: Yes I reviewed the patient's medical records. - Lab Data Lab results reviewed: Yes I reviewed the patient's lab results. Result diagrams: 08/02/17 13:46 08/02/17 13:46 Lab Results 08/02/17 08/02/17 08/02/17 Range/Units 13:46 13:46 14:34 WBC 11.9 H (4.3-11.1) K/mcL RBC 4.80 (3.82-4.97) M/mcL Hgb 14.1 (11.5-15.4) g/dL Hct 43.6 (35.3-44.9) % MCV 90.8 (83.0-100.0) fL MCH 29.4 (28.0-33.3) pg MCHC 32.3 (31.6-35.5) g/dL RDW 15.5 H (11.5-14.5) % Plt Count 208 (140-400) K/mcL MPV 11.2 (9.4-12.4) fL Immature Gran % 0.8 (0-4) % Seg Neutrophils % 85.9 % Lymphocytes % 6.6 % Monocytes % 4.7 % Eosinophils % 1.8 % Basophils % 0.2 % Neutrophils # 10.2 H (1.6-8.9) K/mcL Lymphocytes # 0.8 (0.6-4.6) K/mcL Monocytes # 0.6 (0.0-1.3) K/mcL Eosinophils # 0.2 (0.0-0.6) K/mcL Basophils # 0.0 (0.0-0.2) K/mcL Sodium 139 (136-145) mEq/L Potassium 4.4 (3.5-5.1) mEq/L Chloride 106 (98-107) mEq/L Carbon Dioxide 23 (23-29) mEq/L BUN 40 H (8-23) mg/dL Creatinine 1.32 H (0.60-1.20) mg/dL Est GFR ( Amer) 46 L (> 60) Est GFR (Non-Af Amer) 38 L (> 60) BUN/Creatinine Ratio 30 H (6-26) Glucose 174 H (70-105) mg/dL Calculated Osmolality 302 H (280-300) Calcium 9.2 (8.6-10.3) mg/dL Urine Color Yellow (Yellow) Urine Clarity Clear (Clear) Urine pH 5.5 (5.0-8.0) pH Units Ur Specific [place] 1.020 (1.010-1.025) Urine Protein Trace (Neg-Trace) mg/dL Urine Glucose (UA) Normal (Normal) mg/dL Urine Ketones 15 H (Negative) mg/dL Urine Blood Negative (Negative) Urine Nitrite Negative (Negative) Urine Bilirubin Negative (Negative) Urine Urobilinogen Normal (Normal) mg/dL Ur Leukocyte Esterase Small H (Negative) Urine Microscopic RBC 0-3 (0-3) per hpf Urine Microscopic WBC 15-30 H (0-3) per hpf Urine Bacteria Moderate H (None-Few) per hpf Ur Culture Indicated? YES A (NO) - EKG Data EKG #1 EKG attestation: Yes I reviewed and interpreted this EKG. EKG results narrative: Heart rate 96 bpm. Normal sinus rhythm. Right bundle branch block noted which is similar in appearance overall to EKG from 07/09/2017. No acute changes noted with the exception of the flipped T waves noted in aVL.
[2017-08-02 13:57] LABS: Basophils % 0.2 %; Eosinophils # 0.2 K/mcL (0.0-0.6); Eosinophils % 1.8 %; Hematocrit 43.6 % (35.3-44.9); Hemoglobin 14.1 g/dL (11.5-15.4); Immature Granulocytes % 0.8 % (0-4); Lymphocytes # 0.8 K/mcL (0.6-4.6); Lymphocytes % 6.6 %; Mean Corpuscular HGB Conc 32.3 g/dL (31.6-35.5); Mean Corpuscular Hemoglobin 29.4 pg (28.0-33.3); Mean Corpuscular Volume 90.8 fL (83.0-100.0); Mean Platelet Volume 11.2 fL (9.4-12.4); Monocytes # 0.6 K/mcL (0.0-1.3); Monocytes % 4.7 %; Neutrophils # 10.2 K/mcL (1.6-8.9); Platelet Count 208 K/mcL (140-400); Red Cell Distribution Width 15.5 % (11.5-14.5); Segmented Neutrophils % 85.9 %
[2017-08-02 14:15] LABS: Calcium 9.2 mg/dL (8.6-10.3); Potassium 4.4 mEq/L (3.5-5.1)
--- NOTE | 2017-08-02 14:18 | Emergency Department Note ---
Disposition Clinical Impression: Failure to thrive in adult Disposition: Still a Patient Forms: ED Satisfaction Letter, Work/School Release General Adult HPI - General Chief complaint: ED General Medical Stated complaint: failure to thrive Time Seen by Provider: 08/02/17 13:40 Source: patient, EMS Mode of arrival: EMS Limitations: no limitations - History of Present Illness Pain Scale: 0 - Related Data Home Medications Medication Instructions Recorded Confirmed Aspirin Enteric Coated [Aspirin EC] 81 mg PO QPM 01/27/15 07/09/17 Acetaminophen [Tylenol Arthritis] 650 mg PO DAILY PRN 07/16/15 07/09/17 Enalapril Maleate [Vasotec] 10 mg PO DAILY 07/16/15 07/09/17 Glimepiride [Amaryl] 2 mg PO 0800 10/02/16 07/09/17 Atorvastatin [Lipitor] 10 mg PO HS 07/09/17 07/09/17 Calcium Carbonate/Vitamin D3 1 tab PO BID 07/09/17 07/09/17 [Calcium 600 + Vit D Softgel] Donepezil [Aricept] 5 mg PO HS 07/09/17 07/09/17 Levothyroxine Sodium 50 mcg PO QAM 07/09/17 07/09/17 Metformin HCl [Glucophage] 1,000 mg PO BID 07/09/17 07/09/17 Montelukast [Singulair] 10 mg PO DAILY 07/09/17 07/09/17 Multivitamin [One Daily 1 tab PO QAM 07/09/17 07/09/17 Multivitamin] Pioglitazone [Actos] 15 mg PO DAILY 07/09/17 07/09/17 Previous Rx's Medication Instructions Recorded Docusate [Colace] 100 mg PO BID #60 capsule 03/16/15 Diltiazem CD (24hr) [Cardizem CD] 120 mg PO DAILY #30 cap.er.24h 10/03/16 levoFLOXacin [Levaquin] 750 mg PO DAILY #6 tablet 07/12/17 Allergies Allergy/AdvReac Type Severity Reaction Status Date / Time No Known Allergies Allergy Verified 07/09/17 08:05 Constitutional: Reports: weakness. Denies: fever, chills ENT ED: Denies: congestion Cardiovascular: Denies: chest pain Respiratory: Denies: dyspnea Gastrointestinal: Denies: abdominal pain, diarrhea, constipation Genitourinary: Denies: dysuria Neurological: Reports: weakness. Denies: confusion Psychiatric: Reports: depression Past Medical History - Past Medical History Medical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: dementia, diabetes, hyperlipidemia, hypertension, thyroid disease, other Surgical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: orthopedic, other Psychiatric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: depression CARDIOLOGY NURSE PRACTITIONER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: non-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 - Social History Smoking Status: Never smoker Smokeless Tobacco Status: No Alcohol use: Reports: none Drug use: Reports: none Physical Exam - General Limitations: no limitations General appearance: alert, in no apparent distress Course - Reevaluation(s) Reevaluation #1: Attestation note I did independently examine and verified the physical examination findings evaluation workup and disposition of this patient. We had independent face-to- face examination and discussion. The patient was seen with the emergency medicine resident Dr. Jah Palacio I examined this patient and my medical decision-making was reviewed with the Resident Physician/BI CONSULTANT/PA. I agree with the documented findings, disposition and treatment plan as described except to the extent set forth below. Briefly: 86-year-old female history of dementia (started to thrive recently [facility] at home will need to drink woman answering questions here is awake and somewhat alert afebrile stable vital signs. Patient will get screening labs and admission for [facility] facility placement. Admission disposition pending Time: 14:17 Vital Signs Temperature 98.1 F 08/02/17 13:40 Pulse Rate 98 08/02/17 13:40 Respiratory Rate 17 08/02/17 13:40 Blood Pressure 128/60 08/02/17 13:40 O2 Sat by Pulse Oximetry 94 08/02/17 13:40 Temperature 98.1 F 08/02/17 13:40 Pulse Rate 98 08/02/17 13:40 Respiratory Rate 17 08/02/17 13:40 Blood Pressure 128/60 08/02/17 13:40 O2 Sat by Pulse Oximetry 94 08/02/17 13:40 Oxygen Delivery Oxygen Delivery Room Air Medical Decision Making - Lab Data Result diagrams: 08/02/17 13:46 08/02/17 13:46 Lab Results 08/02/17 08/02/17 Range/Units 13:46 13:46 WBC 11.9 H (4.3-11.1) K/mcL RBC 4.80 (3.82-4.97) M/mcL Hgb 14.1 (11.5-15.4) g/dL Hct 43.6 (35.3-44.9) % MCV 90.8 (83.0-100.0) fL MCH 29.4 (28.0-33.3) pg MCHC 32.3 (31.6-35.5) g/dL RDW 15.5 H (11.5-14.5) % Plt Count 208 (140-400) K/mcL MPV 11.2 (9.4-12.4) fL Immature Gran % 0.8 (0-4) % Seg Neutrophils % 85.9 % Lymphocytes % 6.6 % Monocytes % 4.7 % Eosinophils % 1.8 % Basophils % 0.2 % Neutrophils # 10.2 H (1.6-8.9) K/mcL Lymphocytes # 0.8 (0.6-4.6) K/mcL Monocytes # 0.6 (0.0-1.3) K/mcL Eosinophils # 0.2 (0.0-0.6) K/mcL Basophils # 0.0 (0.0-0.2) K/mcL Sodium 139 (136-145) mEq/L Potassium 4.4 (3.5-5.1) mEq/L Chloride 106 (98-107) mEq/L Carbon Dioxide 23 (23-29) mEq/L BUN 40 H (8-23) mg/dL Creatinine 1.32 H (0.60-1.20) mg/dL Est GFR ( Amer) 46 L (> 60) Est GFR (Non-Af Amer) 38 L (> 60) BUN/Creatinine Ratio 30 H (6-26) Glucose 174 H (70-105) mg/dL Calculated Osmolality 302 H (280-300) Calcium 9.2 (8.6-10.3) mg/dL
[2017-08-02] MEDS ORDERED: 0.9 % Sodium Chloride 500 ML IVC ONE (14:21)
[2017-08-02 14:44] LABS: Bilirubin,Urine Negative (Negative); Blood,Urine Negative (Negative); Clarity,Urine Clear (Clear); Color,Urine Yellow (Yellow); Glucose,Urine (UA) Normal (Normal); Ketones,Urine 15 mg/dL (Negative); Leukocyte Esterase,Urine Small (Negative); Nitrite,Urine Negative (Negative); PH,Urine 5.5 pH Units (5.0-8.0); Protein,Urine Trace mg/dL (Neg-Trace); Urobilinogen,Urine Normal (Normal)
[2017-08-02 14:53] LABS: RBC,Urine 0-3 per hpf (0-3); WBC,Urine 15-30 per hpf (0-3)
[2017-08-02 14:54] LABS: Bacteria,Urine Moderate per hpf (None-Few)
[2017-08-02] MEDS ORDERED: Acetaminophen 325 MG TABLET PO PRN (17:29)
[2017-08-02] MEDS: Aspirin Enteric Coated 81 MG Tablet PO SCH (18:08)
[2017-08-02] MEDS: *HR* Heparin 5,000 UNIT/ML VIAL SQ SCH (18:08)
[2017-08-02] MEDS: 0.9 % Sodium Chloride 1,000 ML IVC SCH (18:09)
--- NOTE | 2017-08-02 18:59 | Internal Med History&Physical ---
Date of Encounter: 08/02/17 Time of Encounter: 18:00 Internal Medicine - H&P: HPI Chief complaint: Failure to thrive. Decreased intake of foods and fluids. AMS. Admitted From: Home Plans for Post Hospital Care: Transfer Assisted Facility History of present illness: Ms. Tran is a 86 year old female. This patient has had underlying moderate/ severe dementia. She was hospitalized here recently for treatment of right upper lobe pneumonia. She was discharged to intermediate facility on 2017. Then, she was discharged home the day before yesterday. When entering her home she was able to ambulate with her walker. She did communicate with her daughter and her caregiver. She had a large bowel movement yesterday; did not have enough time to reach the bathroom. Incontinence with stool happened to her occasionally in the last couple years. She has been incontinent with urine or uterus. For the last 2 days this patient has had poor intake of foods and fluids. It is associated with worsening of her mental status. She does recognize her daughter by name. Otherwise, she is being disoriented. She has had severe deafness. I was not able to communicate with her, despite of her being alert. Other medical problems include type 2 diabetes mellitus, hypertension, hyperlipidemia, hypothyroidism, atrial fibrillation and inhalant allergies. Past Med Surg Social Fam HX - Past Medical History Medical history: atrial fibrillation, dementia, diabetes, hyperlipidemia, hypertension, thyroid disease, other Additional medical history: HX OF RECURRENT UTI. CHR. CONSTIPATION. INH. ALLERGIES. Psychiatric history: depression - Past Surgical History Surgical History: orthopedic, other Additional surgical history: rotator cuff sx. - Social History Smoking Status: Never smoker Smokeless Tobacco Status: No Alcohol use: none Drug use: none - Family History Mother Living Status: Hx Family GI Disorders: Yes Father Living Status: Cause of : ME Hx Family Cardiac Disorders: Yes Hx Family Respiratory Disorders: No Hx Family Cancer: No Hx Family GI Disorders: No Hx Family Genitourinary Disorders: No Hx Family Endocrine Disorder: No Hx Family Musculoskeletal Disorders: No Hx Family Neuromuscular Disorders: No Hx Family Neurologic Disorders: No Hx Family HEENT Disorders: No Hx Family Autoimmune Disorders: No Hx Family Reproductive Disorders: No Hx Family Psychosocial Disorders: No Hx Family Medical Disorders: No Internal Medicine - H&P: Meds Aspirin Enteric Coated [Aspirin EC] 81 mg PO QPM 01/27/15 [History] Acetaminophen [Tylenol Arthritis] 650 mg PO DAILY PRN 07/16/15 [History] Enalapril Maleate [Vasotec] 10 mg PO DAILY 07/16/15 [History] Glimepiride [Amaryl] 2 mg PO 0800 10/02/16 [History] Diltiazem CD (24hr) [Cardizem CD] 120 mg PO DAILY #30 cap.er.24h 10/03/16 [Rx] Atorvastatin [Lipitor] 10 mg PO HS 07/09/17 [History] Calcium Carbonate/Vitamin D3 [Calcium 600 + Vit D Softgel] 1 tab PO BID [History] Donepezil [Aricept] 5 mg PO HS 07/09/17 [History] Levothyroxine Sodium 50 mcg PO QAM 07/09/17 [History] Metformin HCl [Glucophage] 1,000 mg PO BID 07/09/17 [History] Montelukast [Singulair] 10 mg PO DAILY 07/09/17 [History] Multivitamin [One Daily Multivitamin] 1 tab PO QAM 07/09/17 [History] Pioglitazone [Actos] 15 mg PO DAILY 07/09/17 [History] Docusate [Colace] 100 mg PO BID PRN 08/02/17 [History] Sertraline [Zoloft] 50 mg PO DAILY 08/02/17 [History] 3 Allergy/AdvReac Type Severity Reaction Status Date / Time No Known Allergies Allergy Verified 07/09/17 08:05 All Systems PM: A 10-system review of systems was performed and is negative for pertinent findings except as documented above in the HPI. - Constitutional Vitals: Temp Pulse Resp BP Pulse Ox 97.4 F L 81 16 116/67 94 08/02/17 16:31 08/02/17 16:31 08/02/17 16:31 08/02/17 16:31 08/02/17 16:31 General appearance: Present: A&O X 1, no acute distress Exam: This patient is nearly deaf. She has had progressing dementia for the last 10+ years. It was considered moderate/severe recently. - Eye Eye exam: Present: normal appearance, conjuntiva pink, sclera anicteric - ENT ENT exam: Present: mucous membranes dry, normal external ear exam - Respiratory Respiratory exam: Present: CTAB. Absent: accessory muscle use, rales, rhonchi, wheezes - Cardiovascular Cardiovascular exam: Present: RRR, +S1, +S2. Absent: diastolic murmur, gallop, rubs, systolic murmur - GI/Abdominal GI/Abdominal exam: Present: normal bowel sounds, soft, no peritoneal signs. Absent: distended, tenderness - Neurological Exam Neurological exam: Present: alert, no focal deficits. Absent: facial droop, speech deficit Additional comments: The exam is very limited due to her deafness. Additionally she has had moderate /severe dementia as per history. - Skin Skin exam: Present: dry, intact Internal Med - H&P Results - Labs CBC & Chem 7: 08/02/17 13:46 08/02/17 13:46 - VTE Deep Vein Thrombosis/Pulmonary Embolism Present on Admission: No - Assessment and plan (1) Failure to thrive in adult Current Visit: Yes Status: Acute Assessment and plan: She is 86 years old. We will have to rule out infection. She has mild leukocytosis. Will repeat CBC tomorrow morning. UA shows normal findings. We will get chest x-ray today. She is mildly dehydrated. See below. (2) Dehydration Current Visit: Yes Status: Resolved Assessment and plan: This is secondary to decreased intake of fluids. She was incontinent with stool yesterday. She may have underlying infection. We will give her IV fluids. We will repeat BMP/magnesium tomorrow. (3) Leukocytosis Current Visit: No Status: Acute Qualifiers: Leukocytosis type: other Qualified Code(s): D72.828 - Other elevated white blood cell count (4) Altered mental status Current Visit: Yes Status: Acute Assessment and plan: It is secondary to problems mentioned above. TSH was checked in June. It was normal. We will check her folic acid and vitamin B12 levels. Qualifiers: Altered mental status type: somnolence Qualified Code(s): R40.0 - Somnolence (5) Dementia Current Visit: Yes Status: Chronic Assessment and plan: She needs a lot of supportive treatment. When being at home she had care from her daughter and the caregiver. She may need long-term intermediate facility. Qualifiers: Dementia type: unspecified type Dementia behavioral disturbance: without behavioral disturbance Qualified Code(s): F03.90 - Unspecified dementia without behavioral disturbance - Time Spent With Patient Total time spent is greater than 50% in coordination of care (as documented) at patient's floor/unit and/or counseling patient:
[2017-08-03] MEDS: *HR* Heparin 5,000 UNIT/ML VIAL SQ SCH ×2 (05:45→17:53)
[2017-08-03 06:03] LABS: Hematocrit 39.6 % (35.3-44.9); Mean Corpuscular HGB Conc 31.6 g/dL (31.6-35.5); Mean Corpuscular Hemoglobin 28.7 pg (28.0-33.3); Mean Corpuscular Volume 90.8 fL (83.0-100.0); Mean Platelet Volume 11.8 fL (9.4-12.4); Platelet Count 157 K/mcL (140-400); Red Blood Count 4.36 M/mcL (3.82-4.97); Red Cell Distribution Width 15.3 % (11.5-14.5)
[2017-08-03 06:05] LABS: Hemoglobin 12.5 g/dL (11.5-15.4)
[2017-08-03 06:21] LABS: BUN/Creatinine Ratio 34 (6-26); Blood Urea Nitrogen 33 mg/dL (8-23); Calcium 8.5 mg/dL (8.6-10.3); Carbon Dioxide 25 mEq/L (23-29); Chloride 109 mEq/L (98-107); Glucose 81 mg/dL (70-105); Magnesium 1.4 mg/dL (1.6-2.6); Osmolality,Calculated 296 (280-300); Potassium 3.8 mEq/L (3.5-5.1); Sodium 140 mEq/L (136-145); eGFR For African Americans > 60 (> 60); eGFR For Non-African Americans 55 (> 60)
[2017-08-03 06:47] LABS: Vitamin B12 517 pg/mL (250-1100)
[2017-08-03 07:03] LABS: Folate > 22.3 ng/mL (3.0-16.0)
[2017-08-03] MEDS ORDERED: *HR* Pioglitazone 15 MG TABLET PO SCH (09:00)
[2017-08-03] MEDS: *HR* Glimepiride 2 MG TABLET PO SCH (09:12)
[2017-08-03] MEDS: Diltiazem CD (24hr) 120 MG CAPSULE PO SCH (09:12)
[2017-08-03] MEDS: Cholecalciferol (D-3) 1,000 UNIT TABLET PO SCH (09:12)
[2017-08-03] MEDS: Multivit/Ca/Min/Fe/FA 1 TAB TABLET PO SCH (09:12)
--- NOTE | 2017-08-03 10:38 | Internal Med Progress Note ---
Date of Encounter: 08/03/17 Time of Encounter: 10:36 - Assessment and plan (1) Dehydration Current Visit: Yes Status: Resolved Assessment and plan: Secondary to decreased oral intake. Patient was given IV fluids which does show an improvement REENA has been resolved Encouraged patient to drink fluids however patient is not been wanting to eat or drink.-Continue with IV fluids for now. (2) Failure to thrive in adult Current Visit: Yes Status: Acute Assessment and plan: Patient was previously other ECF and she was discharged home day before yesterday. Since arriving home she is had poor oral intake of food and fluids. As well as worsening mental status. We will continue with IV fluids for now Consult dietary for nutritional supplements If she continues to refuse to eat or drink she may require PEG tube-we will need to discuss with POA concerning treatment plan and advance directives may need to consider palliative consult (3) Altered mental status Current Visit: Yes Status: Acute Assessment and plan: During assessment patient is withdrawn she does have a history of heart of hearing. She does open her eyes when I call her name however she immediately comes back to sleep she does not answer my questions and does not attempt to follow commands there is no family at bedside this time unsure if this is her baseline however is reported that she was in [place] and able to communicate prior to going home from care home. She had recently been admitted to this facility and at that time was altered secondary to infectious process-chest x- ray is negative, CT of head to r/o cva Qualifiers: Altered mental status type: somnolence Qualified Code(s): R40.0 - Somnolence (4) Dementia Current Visit: Yes Status: Chronic Assessment and plan: Continue with home medications-possibly long-term placement in ECF we will consult manager social PT-OT Qualifiers: Dementia type: unspecified type Dementia behavioral disturbance: without behavioral disturbance Qualified Code(s): F03.90 - Unspecified dementia without behavioral disturbance (5) DVT prophylaxis Current Visit: No Status: Acute Assessment and plan: Heparin subcutaneous - Time Spent With Patient Total time spent is greater than 50% in coordination of care (as documented) at patient's floor/unit and/or counseling patient: - Subjective Interval history: Patient seen and examine at bedside- She is withdrawn and does not speak or interact during assessment. There is no family at the bedside at this time. - Constitutional Vitals: Temp Pulse Resp BP Pulse Ox 97.8 F 64 15 158/82 91 08/03/17 07:10 08/03/17 07:10 08/03/17 07:10 08/03/17 07:10 08/03/17 07:10 General appearance: Present: A&O X 1, no acute distress - Head Head exam: Present: atraumatic, normocephalic - Eye Eye exam: Present: PERRL, conjuntiva pink, sclera anicteric Pupils: Present: PERRL - Neck Neck exam general surgery: Present: supple, trachea midline. Absent: lymphadenopathy - Respiratory Respiratory exam: Present: CTAB. Absent: accessory muscle use, rales, rhonchi, wheezes - Cardiovascular Cardiovascular exam: Present: RRR, +S1, +S2. Absent: diastolic murmur, gallop, rubs, systolic murmur - GI/Abdominal GI/Abdominal exam: Present: normal bowel sounds, soft, no peritoneal signs. Absent: distended, tenderness - Extremities Exam Extremities exam: Present: warm, radial pulses palpable and symmetrical. Absent : calf tenderness, cyanotic, pedal edema - Neurological Exam Neurological exam: Present: CN II-XII intact, oriented X3, no focal deficits. Absent: pronater drift, facial droop, speech deficit - Skin Skin exam: Present: dry, intact Internal Medicine: Result - Labs CBC & Chem 7: 08/03/17 04:53 08/03/17 15:15 Labs: Short CBC 08/03/17 Range/Units 04:53 WBC 5.4 D (4.3-11.1) K/mcL Hgb 12.5 D (11.5-15.4) g/dL Hct 39.6 (35.3-44.9) % Plt Count 157 (140-400) K/mcL BMP 08/03/17 04:53 Sodium 140 Potassium 3.8 Chloride 109 H Carbon Dioxide 25 BUN 33 H Creatinine 0.96 Glucose 81 Calcium 8.5 L - Impressions Impressions Chest X-Ray 08/03/17 17:21 IMPRESSION: Right perihilar interstitial opacity and left basilar airspace opacity. D/ / Efrain Lerner MD / Efrain Lerner MD Interpreting Provider: Efrain Lerner MD - VTE Deep Vein Thrombosis/Pulmonary Embolism Present on Admission: No Consult Discharge Plan - Plan Referrals: Amelia Reddy CNP [Primary Care Provider] -
[2017-08-03] MEDS: 0.9 % Sodium Chloride 1,000 ML IVC SCH (15:04)
[2017-08-03] MEDS ORDERED: *HR* Dextrose 50 % in Water (Syg) 50 ML SYRINGE IVP PRN (15:08)
[2017-08-03] MEDS ORDERED: D5% in Water 1,000 ML IVC PRN (15:08)
[2017-08-03] MEDS ORDERED: Dextrose Gel 15 GM/37.5 ML TUBE PO PRN ×2 (15:08)
[2017-08-03 15:54] LABS: BUN/Creatinine Ratio 27 (6-26); Blood Urea Nitrogen 25 mg/dL (8-23); Calcium 8.5 mg/dL (8.6-10.3); Carbon Dioxide 23 mEq/L (23-29); Chloride 107 mEq/L (98-107); Glucose 184 mg/dL (70-105); Osmolality,Calculated 293 (280-300); Potassium 3.9 mEq/L (3.5-5.1); Sodium 137 mEq/L (136-145); eGFR For African Americans > 60 (> 60); eGFR For Non-African Americans 58 (> 60)
[2017-08-03 16:07] LABS: Thyroid Stimulating Hormone 2.178 mcIU/mL (0.340-5.600)
--- NOTE | 2017-08-03 16:38 | Event Note ---
Date of Encounter: 08/03/17 Time of Encounter: 16:33
[2017-08-03] MEDS: Insulin LISPRO 300 UNITS/3 ML VIAL SQ SCH ×2 (17:15→22:39)
[2017-08-03] MEDS: Aspirin Enteric Coated 81 MG Tablet PO SCH (17:53)
[2017-08-03 18:05] LABS: Bilirubin,Urine Negative (Negative); Blood,Urine Negative (Negative); Clarity,Urine Slightly Cloudy (Clear); Color,Urine Yellow (Yellow); Glucose,Urine (UA) Normal (Normal); Ketones,Urine Trace mg/dL (Negative); Leukocyte Esterase,Urine Small (Negative); Nitrite,Urine Negative (Negative); Protein,Urine Negative (Neg-Trace); Urobilinogen,Urine Normal (Normal)
[2017-08-03 18:56] LABS: Bacteria,Urine Few per hpf (None-Few); Hyaline Casts,Urine None Seen per lpf (None-Few); Renal Epithelial Cells,Urine Moderate per hpf (None-Few); Squamous Epithelial Cell,Urine Moderate per lpf (None-Few)
[2017-08-04] MEDS: *HR* Heparin 5,000 UNIT/ML VIAL SQ SCH ×2 (05:57→17:19)
[2017-08-04] MEDS: Insulin LISPRO 300 UNITS/3 ML VIAL SQ SCH ×4 (08:24→20:36)
[2017-08-04] MEDS: Cholecalciferol (D-3) 1,000 UNIT TABLET PO SCH (09:26)
[2017-08-04] MEDS: *HR* Glimepiride 2 MG TABLET PO SCH (09:27)
[2017-08-04] MEDS: Diltiazem CD (24hr) 120 MG CAPSULE PO SCH (09:27)
[2017-08-04] MEDS: Multivit/Ca/Min/Fe/FA 1 TAB TABLET PO SCH (09:27)
[2017-08-04 09:38] LABS: Basophils % 0.3 %; Eosinophils # 0.3 K/mcL (0.0-0.6); Eosinophils % 4.1 %; Hematocrit 38.5 % (35.3-44.9); Hemoglobin 12.7 g/dL (11.5-15.4); Immature Granulocytes % 0.1 % (0-4); Lymphocytes # 1.1 K/mcL (0.6-4.6); Lymphocytes % 16.1 %; Mean Corpuscular Hemoglobin 29.1 pg (28.0-33.3); Mean Corpuscular Volume 88.1 fL (83.0-100.0); Mean Platelet Volume 11.8 fL (9.4-12.4); Monocytes # 0.5 K/mcL (0.0-1.3); Monocytes % 7.3 %; Platelet Count 149 K/mcL (140-400); Red Blood Count 4.37 M/mcL (3.82-4.97); Red Cell Distribution Width 14.8 % (11.5-14.5); Segmented Neutrophils % 72.1 %
--- NOTE | 2017-08-04 10:00 | Electrocardiograph Report ---
[address] [place] [address] Test Date: 2017-08-03 Pat Name: Anyi Tran Department: 113 Room: 3B54 Gender: F Event Attendant: : 1930 Requested By: Norma Matthews Order Number: [id number] Reading MD: Juan R Rueda Measurements Intervals [place] Rate: 50 P: -4 [place]: 162 QRS: -57 QRSD: 120 T: 26 QT: 469 QTc: 444 Interpretive Statements SINUS BRADYCARDIA WITH SINUS ARRHYTHMIA POSSIBLE RIGHT VENTRICULAR CONDUCTION DELAY LEFT ANTERIOR FASCICULAR BLOCK POSSIBLE ANTERIOR MYOCARDIAL INFARCTION, OF INDETERMINATE AGE Electronically Signed On 08-04-2017 9:59:19 EDT by Juan R Rueda
--- NOTE | 2017-08-04 11:42 | Internal Med Progress Note ---
Date of Encounter: 08/04/17 Time of Encounter: 11:42 - Assessment and plan (1) Dehydration Current Visit: Yes Status: Resolved Assessment and plan: Secondary to decreased oral intake. Patient was given IV fluids which does show an improvement REENA has been resolved-patient is more alert this time encouraging patient to eat IV fluids as needed (2) Failure to thrive in adult Current Visit: Yes Status: Acute Assessment and plan: Patient was previously other ECF and she was discharged home day before yesterday. Since arriving home she is had poor oral intake of food and fluids. As well as worsening mental status. She is more alert and appropriate today she is eating more continue with nutritional supplements Consult dietary for nutritional supplements (3) Altered mental status Current Visit: Yes Status: Acute Assessment and plan: CT of head negative for CVA patient appears to be improving she is alert and appropriate 2 following simple commands. She is received IV fluids and lab work seems to be improved. She is taking in oral supplements as well as drinking and eating we will continue to monitor Qualifiers: Altered mental status type: somnolence Qualified Code(s): R40.0 - Somnolence (4) Dementia Current Visit: Yes Status: Chronic Assessment and plan: Continue with home medications- PT-OT recommending home health at this time Qualifiers: Dementia type: unspecified type Dementia behavioral disturbance: without behavioral disturbance Qualified Code(s): F03.90 - Unspecified dementia without behavioral disturbance (5) DVT prophylaxis Current Visit: No Status: Acute Assessment and plan: Heparin subcutaneous - Time Spent With Patient Total time spent is greater than 50% in coordination of care (as documented) at patient's floor/unit and/or counseling patient: - Subjective Interval history: Patient seen and examine at bedside- there is no family at the bedside this time. She is more alert she is oriented to name and place following simple commands. Nursing staff reports that she is eating a little bit more.. - Constitutional Vitals: Temp Pulse Resp BP Pulse Ox 98.1 F 59 16 126/67 95 08/04/17 07:07 08/04/17 07:07 08/04/17 07:07 08/04/17 07:07 08/04/17 07:07 General appearance: Present: A&O X 2, answers questions appropriately - Head Head exam: Present: atraumatic, normocephalic - Eye Eye exam: Present: PERRL, conjuntiva pink, sclera anicteric Pupils: Present: PERRL - Neck Neck exam general surgery: Present: supple, trachea midline. Absent: lymphadenopathy - Respiratory Respiratory exam: Present: CTAB. Absent: accessory muscle use, rales, rhonchi, wheezes - Cardiovascular Cardiovascular exam: Present: RRR, +S1, +S2. Absent: diastolic murmur, gallop, rubs, systolic murmur - GI/Abdominal GI/Abdominal exam: Present: normal bowel sounds, soft, no peritoneal signs. Absent: distended, tenderness - Extremities Exam Extremities exam: Present: warm, radial pulses palpable and symmetrical. Absent : calf tenderness, cyanotic, pedal edema - Neurological Exam Neurological exam: Present: CN II-XII intact, oriented X3, no focal deficits. Absent: pronater drift, facial droop, speech deficit - Skin Skin exam: Present: dry, intact Internal Medicine: Result - Labs CBC & Chem 7: 08/04/17 08:52 08/04/17 12:11 Labs: Short CBC 08/04/17 Range/Units 08:52 WBC 6.9 (4.3-11.1) K/mcL Hgb 12.7 (11.5-15.4) g/dL Hct 38.5 (35.3-44.9) % Plt Count 149 (140-400) K/mcL Neutrophils # 5.0 (1.6-8.9) K/mcL BMP 08/03/17 15:15 Sodium 137 Potassium 3.9 Chloride 107 Carbon Dioxide 23 BUN 25 H Creatinine 0.91 Glucose 184 H Calcium 8.5 L Urine 08/03/17 Range/Units 17:50 Urine Color Yellow (Yellow) Urine Clarity Slightly Cloudy A (Clear) Urine pH 6.0 (5.0-8.0) pH Units Ur Specific Humphreys 1.020 (1.010-1.025) Urine Protein Negative (Neg-Trace) mg/dL Urine Glucose (UA) Normal (Normal) mg/dL - Impressions Impressions Head CT 08/03/17 16:29 IMPRESSION: No acute intracranial abnormality. D/ / Yeimi Perry Cha, MD / Yeimi Perry Cha, MD Interpreting Provider: Yeimi Perry Cha, MD - VTE Deep Vein Thrombosis/Pulmonary Embolism Present on Admission: No Consult Discharge Plan - Plan Referrals: Amelia Reddy CNP [Primary Care Provider] -
[2017-08-04 14:18] LABS: BUN/Creatinine Ratio 20 (6-26); Blood Urea Nitrogen 16 mg/dL (8-23); Calcium 8.5 mg/dL (8.6-10.3); Carbon Dioxide 20 mEq/L (23-29); Chloride 108 mEq/L (98-107); Glucose 146 mg/dL (70-105); Osmolality,Calculated 290 (280-300); Potassium 4.1 mEq/L (3.5-5.1); Sodium 138 mEq/L (136-145); eGFR For African Americans > 60 (> 60); eGFR For Non-African Americans > 60 (> 60)
--- NOTE | 2017-08-04 15:26 | Electrocardiograph Report ---
[place] [address] Test Date: 2017-08-02 Pat Name: Anyi Tran Department: 104 Room: 3B Gender: F Bonsai Culturist: KARINA : 1930 Requested By: Jah Palacio Order Number: [id number] Reading MD: Luciano Israel Measurements Intervals [place] Rate: 96 P: 46 MT: 178 QRS: -65 QRSD: 118 T: 67 QT: 381 QTc: 435 Interpretive Statements SINUS RHYTHM INCOMPLETE RIGHT BUNDLE BRANCH BLOCK LEFT ANTERIOR FASCICULAR BLOCK Poor R wave progression Electronically Signed On 08-04-2017 15:24:24 EDT by Luciano Israel
[2017-08-04] MEDS: Aspirin Enteric Coated 81 MG Tablet PO SCH (17:19)
[2017-08-05] MEDS: *HR* Heparin 5,000 UNIT/ML VIAL SQ SCH ×2 (06:22→18:37)
[2017-08-05] MEDS: Insulin LISPRO 300 UNITS/3 ML VIAL SQ SCH ×4 (09:17→21:34)
[2017-08-05] MEDS: Multivit/Ca/Min/Fe/FA 1 TAB TABLET PO SCH (14:08)
[2017-08-05] MEDS: Diltiazem CD (24hr) 120 MG CAPSULE PO SCH (14:08)
[2017-08-05] MEDS: Cholecalciferol (D-3) 1,000 UNIT TABLET PO SCH (14:08)
[2017-08-05] MEDS: *HR* Glimepiride 2 MG TABLET PO SCH (14:08)
--- NOTE | 2017-08-05 14:46 | Discharge Summary ---
Orders not resulted at time of discharge: Pending orders 08/03/17 17:50 Culture,Urine [RM] Routine Date of Encounter: 08/05/17 Time of Encounter: 15:39 - Discharge Diagnosis (1) Dementia Priority: Primary Status: Chronic Assessment and Plan: per hx. Suspect expiration mental status is secondary to progression of dementia. Head CT non-acute. UA concerning for UTI, will start vancomycin. If mentation does not improve consider further imaging with brain MRI. Qualifiers: Dementia type: unspecified type Dementia behavioral disturbance: without behavioral disturbance Qualified Code(s): F03.90 - Unspecified dementia without behavioral disturbance (2) Dehydration Priority: Primary Status: Resolved Assessment and Plan: Secondary to decreased oral intake. Cr 1.3; normalized with IV fluids (3) Failure to thrive in adult Priority: Primary Status: Acute Assessment and Plan: with decreased appetite and intermittently worsening confusion. Suspect secondary to known dementia. Supportive care as noted above (4) UTI (urinary tract infection) Priority: Primary Status: Acute Assessment and Plan: UA indicative of UTI. Cx with MRSA. Start vancomycin. Qualifiers: Urinary tract infection type: acute cystitis Hematuria presence: without hematuria Qualified Code(s): N30.00 - Acute cystitis without hematuria Hospital course: Ms. Tran is a 86 year old female Discharge discussed with: patient (Seen and examined at bedside. Patient is new to me, information obtained from chart review and daughter only as patient is nonverbal and does not provide details. Discussed with daughter via phone to tells me her mother seemed to be doing much better yesterday but now appears to be regressing some. Daughter says she does not think patient is ready to come home today. She is requesting 1 more night in the hospital.) - Time Spent with Patient Total time spent providing and/or coordinating discharge services: - Discharge Medications Home Medications: Aspirin Enteric Coated [Aspirin EC] 81 mg PO QPM 01/27/15 [History] Acetaminophen [Tylenol Arthritis] 650 mg PO DAILY PRN 07/16/15 [History] Enalapril Maleate [Vasotec] 10 mg PO DAILY 07/16/15 [History] Glimepiride [Amaryl] 2 mg PO 0800 10/02/16 [History] Diltiazem CD (24hr) [Cardizem CD] 120 mg PO DAILY #30 cap.er.24h 10/03/16 [Rx] Atorvastatin [Lipitor] 10 mg PO HS 07/09/17 [History] Calcium Carbonate/Vitamin D3 [Calcium 600 + Vit D Softgel] 1 tab PO BID [History] Donepezil [Aricept] 5 mg PO HS 07/09/17 [History] Levothyroxine Sodium 50 mcg PO QAM 07/09/17 [History] Metformin HCl [Glucophage] 1,000 mg PO BID 07/09/17 [History] Montelukast [Singulair] 10 mg PO DAILY 07/09/17 [History] Multivitamin [One Daily Multivitamin] 1 tab PO QAM 07/09/17 [History] Pioglitazone [Actos] 15 mg PO DAILY 07/09/17 [History] Docusate [Colace] 100 mg PO BID PRN 08/02/17 [History] Sertraline [Zoloft] 50 mg PO DAILY 08/02/17 [History] Allergies/Adverse Reactions: 3 Allergy/AdvReac Type Severity Reaction Status Date / Time No Known Allergies Allergy Verified 07/09/17 08:05 Date of admission: 08/02/17 17:07 Primary care physician: Amelia Reddy TRUCK HEADLIGHT ASSEMBLER Consults: 08/02/17 17:24 Consult to Weather Anchor [CONS] Routine Reason for SW Consult: failure to thrive. patient may need rehab services on d/c 08/03/17 14:08 Consult to Nutrition [CONS] Routine Comment: patient has not being eating for the past week. Consulting Provider: NUTRITION Reason for Dietary Consult: PO Supplementation Other:: patient is not tolerating food well per family. Discharging clinician: Alejandra Fischer Anticipated date of discharge: 08/05/17 - Constitutional Vitals: Temp Pulse Resp BP Pulse Ox 98.2 F 62 16 151/68 94 08/05/17 11:26 08/05/17 11:26 08/05/17 11:26 08/05/17 11:26 08/05/17 11:26 General appearance: Present: A&O X 1, morbidly obese, answers questions appropriately - Head Head exam: Present: atraumatic, normocephalic - Eye Eye exam: Present: PERRL, conjuntiva pink, sclera anicteric Pupils: Present: PERRL - Neck Neck exam general surgery: Present: supple, trachea midline. Absent: lymphadenopathy - Respiratory Respiratory exam: Present: CTAB. Absent: accessory muscle use, rales, rhonchi, wheezes - Cardiovascular Cardiovascular exam: Present: RRR, +S1, +S2. Absent: diastolic murmur, gallop, rubs, systolic murmur - GI/Abdominal GI/Abdominal exam: Present: normal bowel sounds, soft, no peritoneal signs. Absent: distended, tenderness - Extremities Exam Extremities exam: Present: warm, radial pulses palpable and symmetrical. Absent : calf tenderness, cyanotic, pedal edema - Neurological Exam Neurological exam: Present: CN II-XII intact, oriented X3, no focal deficits. Absent: pronater drift, facial droop, speech deficit - Skin Skin exam: Present: dry, intact - Patient Status Disposition: Home Health Service Condition: Undetermined - Discharge Instructions Instructions: Urinary Tract Infection in Women (DC), Alzheimer Disease (DC) Follow Up With: Amelia Reddy CNP [Primary Care Provider] - 08/13/17 7:30 am - Diet and Activity Activity: increase activity as tolerated Diet: advance to your usual diet - VTE Deep Vein Thrombosis/Pulmonary Embolism Present on Admission: No
[2017-08-05] MEDS: Aspirin Enteric Coated 81 MG Tablet PO SCH (18:36)
[2017-08-06 05:18] LABS: Basophils % 0.3 %; Eosinophils # 0.3 K/mcL (0.0-0.6); Eosinophils % 3.5 %; Hematocrit 38.4 % (35.3-44.9); Hemoglobin 12.7 g/dL (11.5-15.4); Immature Granulocytes % 0.6 % (0-4); Lymphocytes # 1.2 K/mcL (0.6-4.6); Lymphocytes % 17.1 %; Mean Corpuscular HGB Conc 33.1 g/dL (31.6-35.5); Mean Corpuscular Hemoglobin 29.4 pg (28.0-33.3); Mean Corpuscular Volume 88.9 fL (83.0-100.0); Mean Platelet Volume 11.4 fL (9.4-12.4); Monocytes # 0.6 K/mcL (0.0-1.3); Monocytes % 8.1 %; Platelet Count 131 K/mcL (140-400); Red Blood Count 4.32 M/mcL (3.82-4.97); Red Cell Distribution Width 14.8 % (11.5-14.5); Segmented Neutrophils % 70.4 %
[2017-08-06] MEDS: *HR* Heparin 5,000 UNIT/ML VIAL SQ SCH (06:37)
[2017-08-06] MEDS: Insulin LISPRO 300 UNITS/3 ML VIAL SQ SCH ×2 (09:59→12:47)
[2017-08-06] MEDS: *HR* Glimepiride 2 MG TABLET PO SCH (09:59)
[2017-08-06] MEDS: Cholecalciferol (D-3) 1,000 UNIT TABLET PO SCH (09:59)
[2017-08-06] MEDS: Multivit/Ca/Min/Fe/FA 1 TAB TABLET PO SCH (09:59)
[2017-08-06] MEDS: Diltiazem CD (24hr) 120 MG CAPSULE PO SCH (09:59)
[2017-08-06 12:11] VITALS: BP 131/61
--- NOTE | 2017-08-06 15:09 | Discharge Summary ---
Orders not resulted at time of discharge: Pending orders 08/06/17 18:00 Vancomycin,Random Timed Date of Encounter: 08/06/17 Time of Encounter: 15:06 - Discharge Diagnosis (1) Dementia Priority: Primary Status: Chronic Assessment and Plan: per hx. Suspect alteration in mental status is multifactorial with progression of dementia and UTI. Head CT non-acute. Appeared to be back to baseline at time of discharge. Qualifiers: Dementia type: unspecified type Dementia behavioral disturbance: without behavioral disturbance Qualified Code(s): F03.90 - Unspecified dementia without behavioral disturbance (2) UTI (urinary tract infection) Priority: Primary Status: Acute Assessment and Plan: UA indicative of UTI. Urine cx with MRSA. Treated with IV vanco while hospitalized. Transition to Bactrim at time of discharge. Qualifiers: Urinary tract infection type: acute cystitis Hematuria presence: without hematuria Qualified Code(s): N30.00 - Acute cystitis without hematuria (3) Dehydration Priority: Primary Status: Resolved Assessment and Plan: Secondary to decreased oral intake. Cr 1.3; normalized with IV fluids. Avoid nephrotoxic agents as possible. (4) Failure to thrive in adult Priority: Primary Status: Acute Assessment and Plan: with decreased appetite and intermittently /worsening confusion. Suspect secondary to known dementia and UTI. Hospital course: Please see assessment and plan for Hospital course Discharge discussed with: patient (Seen and examined at bedside. Unable to obtain review of system or subjective information as patient is alert to self only and nonverbal. No family at bedside to update.) - Time Spent with Patient Total time spent providing and/or coordinating discharge services: - Discharge Medications Prescriptions: Sulfamethoxazole/Trimeth DS [Bactrim DS] 1 each PO BID #8 tablet Home Medications: Aspirin Enteric Coated [Aspirin EC] 81 mg PO QPM 01/27/15 [History] Acetaminophen [Tylenol Arthritis] 650 mg PO DAILY PRN 07/16/15 [History] Enalapril Maleate [Vasotec] 10 mg PO DAILY 07/16/15 [History] Glimepiride [Amaryl] 2 mg PO 0800 10/02/16 [History] Diltiazem CD (24hr) [Cardizem CD] 120 mg PO DAILY #30 cap.er.24h 10/03/16 [Rx] Atorvastatin [Lipitor] 10 mg PO HS 07/09/17 [History] Calcium Carbonate/Vitamin D3 [Calcium 600 + Vit D Softgel] 1 tab PO BID [History] Donepezil [Aricept] 5 mg PO HS 07/09/17 [History] Levothyroxine Sodium 50 mcg PO QAM 07/09/17 [History] Metformin HCl [Glucophage] 1,000 mg PO BID 07/09/17 [History] Montelukast [Singulair] 10 mg PO DAILY 07/09/17 [History] Multivitamin [One Daily Multivitamin] 1 tab PO QAM 07/09/17 [History] Pioglitazone [Actos] 15 mg PO DAILY 07/09/17 [History] Docusate [Colace] 100 mg PO BID PRN 08/02/17 [History] Sertraline [Zoloft] 50 mg PO DAILY 08/02/17 [History] Sulfamethoxazole/Trimeth DS [Bactrim DS] 1 each PO BID #8 tablet 08/06/17 [Rx] Allergies/Adverse Reactions: 3 Allergy/AdvReac Type Severity Reaction Status Date / Time No Known Allergies Allergy Verified 07/09/17 08:05 Date of admission: 08/02/17 17:07 Primary care physician: Amelia Reddy, PARKING GARAGE MANAGER Consults: 08/02/17 17:24 Consult to Children'S Program Coordinator [CONS] Routine Reason for SW Consult: failure to thrive. patient may need rehab services on d/c 08/03/17 14:08 Consult to Nutrition [CONS] Routine Comment: patient has not being eating for the past week. Consulting Provider: NUTRITION Reason for Dietary Consult: PO Supplementation Other:: patient is not tolerating food well per family. Discharging clinician: Alejandra Fischer Anticipated date of discharge: 08/06/17 - Constitutional Vitals: Temp Pulse Resp BP Pulse Ox 98.2 F 58 16 131/61 94 08/06/17 12:05 08/06/17 12:05 08/06/17 12:05 08/06/17 12:05 08/06/17 12:05 General appearance: Present: A&O X 1, morbidly obese. Absent: answers questions appropriately - Head Head exam: Present: atraumatic, normocephalic - Eye Eye exam: Present: PERRL, conjuntiva pink, sclera anicteric Pupils: Present: PERRL - Neck Neck exam general surgery: Present: supple, trachea midline. Absent: lymphadenopathy - Respiratory Respiratory exam: Present: CTAB. Absent: accessory muscle use, rales, rhonchi, wheezes - Cardiovascular Cardiovascular exam: Present: RRR, +S1, +S2. Absent: diastolic murmur, gallop, rubs, systolic murmur - GI/Abdominal GI/Abdominal exam: Present: normal bowel sounds, soft, no peritoneal signs. Absent: distended, tenderness - Extremities Exam Extremities exam: Present: warm, radial pulses palpable and symmetrical. Absent : calf tenderness, cyanotic, pedal edema - Neurological Exam Neurological exam: Present: CN II-XII intact, no focal deficits, speech deficit (non-verbal at times ). Absent: pronater drift, facial droop - Skin Skin exam: Present: dry, intact - Patient Status Disposition: Home Health Service Condition: Good Functional capacity at discharge: uses cane/walker Overall status at discharge: patient is back to baseline - Discharge Instructions Instructions: Urinary Tract Infection in Women (DC), Alzheimer Disease (DC), Sulfamethoxazole/Trimethoprim (By mouth) Follow Up With: Amelia Reddy CNP [Primary Care Provider] - 08/13/17 7:30 am - Diet and Activity Activity: increase activity as tolerated Diet: advance to your usual diet - VTE Deep Vein Thrombosis/Pulmonary Embolism Present on Admission: No
--- NOTE | 2017-08-06 15:17 | Physician Discharge Referral ---
Home Health/Hosp Referral Info Transfer to: Home Health Attending Provider: Alejandra Hernandez CNP Provider in Charge Post Discharge: PCP - Diagnosis (1) Dementia Status: Chronic (2) UTI (urinary tract infection) Status: Acute (3) Dehydration Status: Resolved (4) Failure to thrive in adult Status: Acute - Respiratory Orders None Smoking Cessation: Smoking cessation has been advised. For more information, call the [place] Tobacco Quit Line at 4-277-SSTJ-NOW. - Diet/Nutrition Diet/Nutrition Orders: No Added Salt (AIDEN), No Concentrated Sweets - Activity Activity Orders: Ambulate, Walker - Services Needed Following services are medically necessary services: Nursing, Home Health Aide, Physical Therapy, Occupational Therapy - Transfer Medications Prescriptions: Sulfamethoxazole/Trimeth DS [Bactrim DS] 1 each PO BID #8 tablet Home Medications: Aspirin Enteric Coated [Aspirin EC] 81 mg PO QPM 01/27/15 [History] Acetaminophen [Tylenol Arthritis] 650 mg PO DAILY PRN 07/16/15 [History] Enalapril Maleate [Vasotec] 10 mg PO DAILY 07/16/15 [History] Glimepiride [Amaryl] 2 mg PO 0800 10/02/16 [History] Diltiazem CD (24hr) [Cardizem CD] 120 mg PO DAILY #30 cap.er.24h 10/03/16 [Rx] Atorvastatin [Lipitor] 10 mg PO HS 07/09/17 [History] Calcium Carbonate/Vitamin D3 [Calcium 600 + Vit D Softgel] 1 tab PO BID [History] Donepezil [Aricept] 5 mg PO HS 07/09/17 [History] Levothyroxine Sodium 50 mcg PO QAM 07/09/17 [History] Metformin HCl [Glucophage] 1,000 mg PO BID 07/09/17 [History] Montelukast [Singulair] 10 mg PO DAILY 07/09/17 [History] Multivitamin [One Daily Multivitamin] 1 tab PO QAM 07/09/17 [History] Pioglitazone [Actos] 15 mg PO DAILY 07/09/17 [History] Docusate [Colace] 100 mg PO BID PRN 08/02/17 [History] Sertraline [Zoloft] 50 mg PO DAILY 08/02/17 [History] Sulfamethoxazole/Trimeth DS [Bactrim DS] 1 each PO BID #8 tablet 08/06/17 [Rx] Allergies/Adverse Reactions: 3 Allergy/AdvReac Type Severity Reaction Status Date / Time No Known Allergies Allergy Verified 07/09/17 08:05 Certification: Further, I certify that my clinical findings support that this patient is homebound (i.e. absences from home require considerable and taxing effort and are for medical reasons or congregational services or infrequently or short duration when for other reasons) because: Homebound Reason: Leaving home requires considerable and taxing effort due to condition Attestation: My signature below is to certify that this patient is under my care and that I, or nurse practitioner, or a physician's service assistant working with me, has a face-to -face encounter with this patient.
[2017-08-06] MEDS ORDERED: Aminoglycoside Consult 1 EACH MC ONE (18:44)
== END 2017-08-06 18:45 | disposition home health service (06) | DRG 690 ==
LOC: 3BNU 13:38 → EMEROO 13:38 → 3BNU 16:01
PROVIDERS: ADMIT Internal Medicine; ATTEND Internal Medicine

== ENCOUNTER 2017-10-31 09:21 | Observation (INO) ==
--- NOTE | 2017-10-31 09:38 | Emergency Department Note ---
Disposition Clinical Impression: Syncope Qualifiers: Syncope type: unspecified Qualified Code(s): R55 - Syncope and collapse Disposition: Admitted As Inpatient Condition: Fair General Adult HPI - General Chief complaint: ED Syncope Stated complaint: found unresponsive Time Seen by Provider: 10/31/17 09:27 Source: EMS Mode of arrival: EMS Limitations: other Nursing Notes Reviewed: Yes Vital Signs Reviewed: Yes - History of Present Illness HPI Narrative: 87-year-old female with history of dementia and diabetes presents for evaluation after being found unresponsive. Patient did have a witnessed episode earlier today while at the PCP office. Daughter did state that she was decreased responsiveness for about 3-4 minutes but was unsure how long exactly. No chest compressions or interventions required and the patient spontaneously improved. Patient is back to baseline currently per her daughter. Reports a the patient has had a cough and runny nose or the past couple days. Denies any fevers. Denies any complaints otherwise. Patient is nonverbal at baseline. Nonfocal exam. Denies any abdominal pain. No nausea vomiting. Family states the patient was treated for pneumonia back in June of this year as well as a UTI in July this year. Pain Scale: 0 - Related Data Home Medications Medication Instructions Recorded Confirmed Aspirin Enteric Coated [Aspirin EC] 81 mg PO QPM 01/27/15 10/31/17 Acetaminophen [Tylenol Arthritis] 650 mg PO DAILY PRN 07/16/15 10/31/17 Glimepiride [Amaryl] 2 mg PO 0800 10/02/16 10/31/17 Atorvastatin [Lipitor] 10 mg PO HS 07/09/17 10/31/17 Calcium Carbonate/Vitamin D3 1 tab PO BID 07/09/17 10/31/17 [Calcium 600 + Vit D Softgel] Donepezil [Aricept] 5 mg PO HS 07/09/17 10/31/17 Levothyroxine Sodium 50 mcg PO QAM 07/09/17 10/31/17 Metformin HCl [Glucophage] 1,000 mg PO BID 07/09/17 10/31/17 Montelukast [Singulair] 10 mg PO DAILY 07/09/17 10/31/17 Multivitamin [One Daily 1 tab PO QAM 07/09/17 10/31/17 Multivitamin] Pioglitazone [Actos] 15 mg PO DAILY 05/16/18 09/07/18 Docusate [Colace] 100 mg PO BID PRN 08/02/17 10/31/17 Mirtazapine 7.5 mg PO HS 10/31/17 10/31/17 Previous Rx's Medication Instructions Recorded Diltiazem CD (24hr) [Cardizem CD] 120 mg PO DAILY #30 cap.er.24h 10/03/16 Allergies Allergy/AdvReac Type Severity Reaction Status Date / Time No Known Allergies Allergy Verified 10/31/17 09:32 Past Medical History - Past Medical History Medical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: atrial fibrillation, dementia, diabetes, hyperlipidemia, hypertension, thyroid disease, other Surgical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: orthopedic, other Psychiatric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: depression [employer]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: non-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 - Social History Smoking Status: Never smoker Smokeless Tobacco Status: No Alcohol use: Reports: none Drug use: Reports: none Physical Exam - General Limitations: no limitations General appearance: alert, in no apparent distress - Head Head exam: atraumatic, normal inspection - Eye Eye exam: Present: normal appearance, PERRL, EOMI - ENT ENT exam: normal exam, mucous membranes moist - Neck Neck exam: Present: normal inspection - Chest Chest inspection: Present: normal inspection, symmetric chest wall rise - Respiratory Respiratory exam: Present: other (Poor respiratory effort). Absent: respiratory distress, prolonged expiratory phase - Cardiovascular Cardiovascular exam: Present: regular rate, normal rhythm. Absent: systolic murmur - Abdominal Exam Abdominal exam: Present: soft, Non-Tender. Absent: guarding, rebound - Extremities Exam Extremities exam: Present: normal inspection. Absent: pedal edema - Expanded Lower Extremity Exam Neurovascular/Tendon exam: Present: normal capillary refill - Back Exam Back exam: Present: normal inspection - Neurological Exam Neurological exam: Present: alert, CN II-XII intact - Expanded Neurological Exam Motor strength - LUE: 5/5 Motor strength - RUE: 5/5 Motor strength - LLE: 5/5 Motor strength - RLE: 5/5 - Skin Skin exam: Present: warm, dry, intact, normal color Course Course Narrative: Patient seen and examined. Patient is back to baseline. Nonfocal exam. Daughter provided the history as well as EMS. Patient get basic screening cardiopulmonary evaluation with EKG chest x-ray as well as basic labs and a urinalysis. Disposition pending. Vital Signs Temperature 97.7 F 10/31/17 09:24 Pulse Rate 69 10/31/17 09:24 Respiratory Rate 18 10/31/17 09:24 Blood Pressure 141/54 10/31/17 09:24 O2 Sat by Pulse Oximetry 98 10/31/17 09:24 Temperature 98.0 F 10/31/17 15:35 Pulse Rate 80 10/31/17 15:35 Respiratory Rate 18 10/31/17 15:37 Blood Pressure 170/92 10/31/17 15:35 O2 Sat by Pulse Oximetry 96 10/31/17 15:37 Oxygen Delivery Oxygen Delivery Room Air Medical Decision Making - MDM Narrative Medical decision making narrative: Patient presented for concerns of what is described as syncope. No seizure- like activity. Patient's symptoms improved and resolved prior to ED presentation. Patient had basic cardiopulmonary screening evaluation was unremarkable. Patient's mental status at baseline. Confirmed by the daughter at bedside. Given the patient's described pulseless activity prior to ED presentation the patient will be admitted for cardiopulmonary evaluation. Patient likely had a syncopal episode but given her history will be admitted. - Lab Data Lab results reviewed: Yes I reviewed the patient's lab results. Result diagrams: 10/31/17 10:13 10/31/17 10:13 Lab Results 10/31/17 10/31/17 10/31/17 Range/Units 10:13 10:13 10:13 WBC 5.2 (4.3-11.1) K/mcL RBC 4.46 (3.82-4.97) M/mcL Hgb 13.2 (11.5-15.4) g/dL Hct 41.3 (35.3-44.9) % MCV 92.6 (83.0-100.0) fL MCH 29.6 (28.0-33.3) pg MCHC 32.0 (31.6-35.5) g/dL RDW 14.8 H (11.5-14.5) % Plt Count 144 (140-400) K/mcL MPV 12.1 (9.4-12.4) fL Immature Gran % 0.2 (0-4) % Seg Neutrophils % 77.9 % Lymphocytes % 15.2 % Monocytes % 4.6 % Eosinophils % 1.7 % Basophils % 0.4 % Neutrophils # 4.1 (1.6-8.9) K/mcL Lymphocytes # 0.8 (0.6-4.6) K/mcL Monocytes # 0.2 (0.0-1.3) K/mcL Eosinophils # 0.1 (0.0-0.6) K/mcL Basophils # 0.0 (0.0-0.2) K/mcL PT 11.1 (9.4-12.1) Seconds INR 1.0 Sodium 138 (136-145) mEq/L Potassium 4.3 (3.5-5.1) mEq/L Chloride 107 (98-107) mEq/L Carbon Dioxide 24 (23-29) mEq/L BUN 23 (8-23) mg/dL Creatinine 1.07 (0.60-1.20) mg/dL Est GFR ( Amer) 59 L (> 60) Est GFR (Non-Af Amer) 48 L (> 60) BUN/Creatinine Ratio 21 (6-26) Glucose 151 H (70-105) mg/dL Calculated Osmolality 293 (280-300) Calcium 9.2 (8.6-10.3) mg/dL Troponin I < 0.03 (< 0.04) ng/mL B-Natriuretic Peptide (Less than 100) pg/mL TSH 8.155 H (0.340-5.600) mcIU/mL Free T4 0.96 (0.70-2.00) ng/dl Urine Color (Yellow) Urine Clarity (Clear) Urine pH (5.0-8.0) pH Units Ur Specific [place] (1.010-1.025) Urine Protein (Neg-Trace) mg/dL Urine Glucose (UA) (Normal) mg/dL Urine Ketones (Negative) mg/dL Urine Blood (Negative) Urine Nitrite (Negative) Urine Bilirubin (Negative) Urine Urobilinogen (Normal) mg/dL Ur Leukocyte Esterase (Negative) Ur Culture Indicated? (NO) 10/31/17 10/31/17 Range/Units 10:13 10:34 WBC (4.3-11.1) K/mcL RBC (3.82-4.97) M/mcL Hgb (11.5-15.4) g/dL Hct (35.3-44.9) % MCV (83.0-100.0) fL MCH (28.0-33.3) pg MCHC (31.6-35.5) g/dL RDW (11.5-14.5) % Plt Count (140-400) K/mcL MPV (9.4-12.4) fL Immature Gran % (0-4) % Seg Neutrophils % % Lymphocytes % % Monocytes % % Eosinophils % % Basophils % % Neutrophils # (1.6-8.9) K/mcL Lymphocytes # (0.6-4.6) K/mcL Monocytes # (0.0-1.3) K/mcL Eosinophils # (0.0-0.6) K/mcL Basophils # (0.0-0.2) K/mcL PT (9.4-12.1) Seconds INR Sodium (136-145) mEq/L Potassium (3.5-5.1) mEq/L Chloride (98-107) mEq/L Carbon Dioxide (23-29) mEq/L BUN (8-23) mg/dL Creatinine (0.60-1.20) mg/dL Est GFR ( Amer) (> 60) Est GFR (Non-Af Amer) (> 60) BUN/Creatinine Ratio (6-26) Glucose (70-105) mg/dL Calculated Osmolality (280-300) Calcium (8.6-10.3) mg/dL Troponin I (< 0.04) ng/mL B-Natriuretic Peptide 47 (Less than 100) pg/mL TSH (0.340-5.600) mcIU/mL Free T4 (0.70-2.00) ng/dl Urine Color Yellow (Yellow) Urine Clarity Clear (Clear) Urine pH 6.0 (5.0-8.0) pH Units Ur Specific [place] 1.018 (1.010-1.025) Urine Protein Negative (Neg-Trace) mg/dL Urine Glucose (UA) Normal (Normal) mg/dL Urine Ketones Negative (Negative) mg/dL Urine Blood Negative (Negative) Urine Nitrite Negative (Negative) Urine Bilirubin Negative (Negative) Urine Urobilinogen Normal (Normal) mg/dL Ur Leukocyte Esterase Negative (Negative) Ur Culture Indicated? NO (NO) - Radiology Data Radiology results reviewed: Yes I reviewed the patient's radiology results. Chest X-Ray 10/31/17 09:32 IMPRESSION: No acute process. D/ / Vinod Medley MD / Vinod Medley MD Interpreting Provider: Vinod Medley MD Chest X-Ray 10/31/17 09:32 IMPRESSION: No acute process. D/ / Vinod Medley MD / Vinod Medley MD Interpreting Provider: Vinod Medley MD Head CT 10/31/17 11:20 IMPRESSION: No acute intracranial abnormality. D/ / Elpidio Bowman MD / Elpidio Bowman MD Interpreting Provider: Elpidio Bowman MD - EKG Data EKG #1 EKG attestation: Yes I reviewed and interpreted this EKG. EKG shows normal: sinus rhythm Rate: normal Rhythm: NSR [place]/QRS: normal, RBBB T wave inversions noted in: v1 Interpretation: no acute changes, nonspecific ST-T wave changes S.B.A.RJenelle - S.B.A.R. Situation: Demographics Background: Presenting Complaint Assessment: Vital Signs, Course and respsone to treatment, Patient/Family Expectation Recommendation: Barrier(s) to disposition, Recommendation based on pending studies, treatments, or consults S.B.A.RJenelle Report Given to: Dr. Mickey Orozco Repor Time: 11:22
[2017-10-31 10:43] LABS: Basophils % 0.4 %; Eosinophils # 0.1 K/mcL (0.0-0.6); Eosinophils % 1.7 %; Hematocrit 41.3 % (35.3-44.9); Hemoglobin 13.2 g/dL (11.5-15.4); Immature Granulocytes % 0.2 % (0-4); Lymphocytes # 0.8 K/mcL (0.6-4.6); Lymphocytes % 15.2 %; Mean Corpuscular Hemoglobin 29.6 pg (28.0-33.3); Mean Corpuscular Volume 92.6 fL (83.0-100.0); Mean Platelet Volume 12.1 fL (9.4-12.4); Monocytes # 0.2 K/mcL (0.0-1.3); Monocytes % 4.6 %; Neutrophils # 4.1 K/mcL (1.6-8.9); Platelet Count 144 K/mcL (140-400); Red Blood Count 4.46 M/mcL (3.82-4.97); Red Cell Distribution Width 14.8 % (11.5-14.5); Segmented Neutrophils % 77.9 %
[2017-10-31 10:49] LABS: Bilirubin,Urine Negative (Negative); Blood,Urine Negative (Negative); Clarity,Urine Clear (Clear); Color,Urine Yellow (Yellow); Glucose,Urine (UA) Normal (Normal); Ketones,Urine Negative (Negative); Leukocyte Esterase,Urine Negative (Negative); Nitrite,Urine Negative (Negative); Protein,Urine Negative (Neg-Trace); Specific Gravity,Urine 1.018 (1.010-1.025); Urobilinogen,Urine Normal (Normal)
[2017-10-31 10:50] LABS: Troponin I < 0.03 ng/mL (< 0.04)
[2017-10-31 10:51] LABS: BUN/Creatinine Ratio 21 (6-26); Blood Urea Nitrogen 23 mg/dL (8-23); Calcium 9.2 mg/dL (8.6-10.3); Carbon Dioxide 24 mEq/L (23-29); Chloride 107 mEq/L (98-107); Glucose 151 mg/dL (70-105); Osmolality,Calculated 293 (280-300); Potassium 4.3 mEq/L (3.5-5.1); Sodium 138 mEq/L (136-145); eGFR For Non-African Americans 48 (> 60)
[2017-10-31 10:52] LABS: Prothrombin Time 11.1 Seconds (9.4-12.1)
--- NOTE | 2017-10-31 11:19 | Emergency Department Note ---
Disposition Clinical Impression: Syncope Disposition: Admitted As Inpatient Condition: Fair General Adult HPI - General Chief complaint: ED Syncope Stated complaint: found unresponsive Time Seen by Provider: 10/31/17 09:27 Source: EMS Mode of arrival: EMS Limitations: no limitations - History of Present Illness Pain Scale: 0 - Related Data Home Medications Medication Instructions Recorded Confirmed Aspirin Enteric Coated [Aspirin EC] 81 mg PO QPM 01/27/15 10/31/17 Acetaminophen [Tylenol Arthritis] 650 mg PO DAILY PRN 07/16/15 10/31/17 Glimepiride [Amaryl] 2 mg PO 0800 10/02/16 10/31/17 Atorvastatin [Lipitor] 10 mg PO HS 07/09/17 10/31/17 Calcium Carbonate/Vitamin D3 1 tab PO BID 07/09/17 10/31/17 [Calcium 600 + Vit D Softgel] Donepezil [Aricept] 5 mg PO HS 07/09/17 10/31/17 Levothyroxine Sodium 50 mcg PO QAM 07/09/17 10/31/17 Metformin HCl [Glucophage] 1,000 mg PO BID 07/09/17 10/31/17 Montelukast [Singulair] 10 mg PO DAILY 07/09/17 10/31/17 Multivitamin [One Daily 1 tab PO QAM 07/09/17 10/31/17 Multivitamin] Pioglitazone [Actos] 15 mg PO DAILY 07/09/17 10/31/17 Docusate [Colace] 100 mg PO BID PRN 08/02/17 10/31/17 Mirtazapine 7.5 mg PO HS 10/31/17 10/31/17 Previous Rx's Medication Instructions Recorded Diltiazem CD (24hr) [Cardizem CD] 120 mg PO DAILY #30 cap.er.24h 10/03/16 Allergies Allergy/AdvReac Type Severity Reaction Status Date / Time No Known Allergies Allergy Verified 10/31/17 09:32 Past Medical History - Past Medical History Medical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: atrial fibrillation, dementia, diabetes, hyperlipidemia, hypertension, thyroid disease, other Surgical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: orthopedic, other Psychiatric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: depression [employer] 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[employer]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: 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-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 - Social History Smoking Status: Never smoker Smokeless Tobacco Status: No Alcohol use: Reports: none Drug use: Reports: none Physical Exam - General Limitations: no limitations General appearance: alert, in no apparent distress Course Vital Signs Temperature 97.7 F 10/31/17 09:24 Pulse Rate 69 10/31/17 09:24 Respiratory Rate 18 10/31/17 09:24 Blood Pressure 141/54 10/31/17 09:24 O2 Sat by Pulse Oximetry 98 10/31/17 09:24 Temperature 98.0 F 10/31/17 15:35 Pulse Rate 80 10/31/17 15:35 Respiratory Rate 18 10/31/17 15:37 Blood Pressure 170/92 10/31/17 15:35 O2 Sat by Pulse Oximetry 96 10/31/17 15:37 Oxygen Delivery Oxygen Delivery Room Air Medical Decision Making - Lab Data Result diagrams: 10/31/17 10:13 10/31/17 10:13 Lab Results 10/31/17 10/31/17 10/31/17 Range/Units 10:13 10:13 10:13 WBC 5.2 (4.3-11.1) K/mcL RBC 4.46 (3.82-4.97) M/mcL Hgb 13.2 (11.5-15.4) g/dL Hct 41.3 (35.3-44.9) % MCV 92.6 (83.0-100.0) fL MCH 29.6 (28.0-33.3) pg MCHC 32.0 (31.6-35.5) g/dL RDW 14.8 H (11.5-14.5) % Plt Count 144 (140-400) K/mcL MPV 12.1 (9.4-12.4) fL Immature Gran % 0.2 (0-4) % Seg Neutrophils % 77.9 % Lymphocytes % 15.2 % Monocytes % 4.6 % Eosinophils % 1.7 % Basophils % 0.4 % Neutrophils # 4.1 (1.6-8.9) K/mcL Lymphocytes # 0.8 (0.6-4.6) K/mcL Monocytes # 0.2 (0.0-1.3) K/mcL Eosinophils # 0.1 (0.0-0.6) K/mcL Basophils # 0.0 (0.0-0.2) K/mcL PT 11.1 (9.4-12.1) Seconds INR 1.0 Sodium 138 (136-145) mEq/L Potassium 4.3 (3.5-5.1) mEq/L Chloride 107 (98-107) mEq/L Carbon Dioxide 24 (23-29) mEq/L BUN 23 (8-23) mg/dL Creatinine 1.07 (0.60-1.20) mg/dL Est GFR ( Amer) 59 L (> 60) Est GFR (Non-Af Amer) 48 L (> 60) BUN/Creatinine Ratio 21 (6-26) Glucose 151 H (70-105) mg/dL Calculated Osmolality 293 (280-300) Calcium 9.2 (8.6-10.3) mg/dL Troponin I < 0.03 (< 0.04) ng/mL B-Natriuretic Peptide (Less than 100) pg/mL TSH 8.155 H (0.340-5.600) mcIU/mL Free T4 0.96 (0.70-2.00) ng/dl Urine Color (Yellow) Urine Clarity (Clear) Urine pH (5.0-8.0) pH Units Ur Specific [place] (1.010-1.025) Urine Protein (Neg-Trace) mg/dL Urine Glucose (UA) (Normal) mg/dL Urine Ketones (Negative) mg/dL Urine Blood (Negative) Urine Nitrite (Negative) Urine Bilirubin (Negative) Urine Urobilinogen (Normal) mg/dL Ur Leukocyte Esterase (Negative) Ur Culture Indicated? (NO) 10/31/17 10/31/17 Range/Units 10:13 10:34 WBC (4.3-11.1) K/mcL RBC (3.82-4.97) M/mcL Hgb (11.5-15.4) g/dL Hct (35.3-44.9) % MCV (83.0-100.0) fL MCH (28.0-33.3) pg MCHC (31.6-35.5) g/dL RDW (11.5-14.5) % Plt Count (140-400) K/mcL MPV (9.4-12.4) fL Immature Gran % (0-4) % Seg Neutrophils % % Lymphocytes % % Monocytes % % Eosinophils % % Basophils % % Neutrophils # (1.6-8.9) K/mcL Lymphocytes # (0.6-4.6) K/mcL Monocytes # (0.0-1.3) K/mcL Eosinophils # (0.0-0.6) K/mcL Basophils # (0.0-0.2) K/mcL PT (9.4-12.1) Seconds INR Sodium (136-145) mEq/L Potassium (3.5-5.1) mEq/L Chloride (98-107) mEq/L Carbon Dioxide (23-29) mEq/L BUN (8-23) mg/dL Creatinine (0.60-1.20) mg/dL Est GFR ( Amer) (> 60) Est GFR (Non-Af Amer) (> 60) BUN/Creatinine Ratio (6-26) Glucose (70-105) mg/dL Calculated Osmolality (280-300) Calcium (8.6-10.3) mg/dL Troponin I (< 0.04) ng/mL B-Natriuretic Peptide 47 (Less than 100) pg/mL TSH (0.340-5.600) mcIU/mL Free T4 (0.70-2.00) ng/dl Urine Color Yellow (Yellow) Urine Clarity Clear (Clear) Urine pH 6.0 (5.0-8.0) pH Units Ur Specific [place] 1.018 (1.010-1.025) Urine Protein Negative (Neg-Trace) mg/dL Urine Glucose (UA) Normal (Normal) mg/dL Urine Ketones Negative (Negative) mg/dL Urine Blood Negative (Negative) Urine Nitrite Negative (Negative) Urine Bilirubin Negative (Negative) Urine Urobilinogen Normal (Normal) mg/dL Ur Leukocyte Esterase Negative (Negative) Ur Culture Indicated? NO (NO) Attestation Statement - Attestation Attestation: I examined this patient and my medical decision-making was reviewed with the Resident Physician. I agree with the documented findings, disposition and treatment plan as described except to the extent set forth below. Patient presents to the ED after a syncopal episode. 4 minute episode of being unresponsive at the PCPs office. Report was that she was pulseless but there was no CPR performed. Patient awake and alert. EMS. Same here. On examination she is awake and alert in no acute distress. Heart regular lungs are clear. Abdomen soft. Patient voices no complaints. Disoriented per her baseline. Plan. Patient is no more confused than normal. Workup is unremarkable. No injury. Mental status at baseline. Patient will be admitted for a syncopal episode.
[2017-10-31] MEDS ORDERED: Acetaminophen 325 MG TABLET PO PRN (13:02)
[2017-10-31] MEDS ORDERED: Naloxone 0.4 MG/ML INJ IVP PRN (13:02)
[2017-10-31] MEDS ORDERED: *HR* Dextrose 50 % in Water (Syg) 50 ML SYRINGE IVP PRN (13:12)
[2017-10-31] MEDS ORDERED: Dextrose Gel 15 GM/37.5 ML TUBE PO PRN ×2 (13:12)
[2017-10-31] MEDS ORDERED: D5% in Water 1,000 ML IVC PRN (13:12)
--- NOTE | 2017-10-31 13:21 | Internal Med History&Physical ---
Date of Encounter: 10/31/17 Time of Encounter: 12:30 Internal Medicine - H&P: HPI Chief complaint: Syncope Admitted From: Emergency Dept Plans for Post Hospital Care: Home History of present illness: Ms. Tran is a 87 year old female w/PMH of atrial fibrillation, dementia, diabetes controlled with oral antihyperglycemic medications, HLD, HTN, and thyroid disease presents from the ED w/CC of syncope while at her PCP's office today. Pts. daughter reports pt. was at PCP for well check and slumped over and began twitching in the office. States personnel could not find pulse and pt. was not breathing but spontaneously improved w/o cardiac resuscitation. Episode lasted approx. 3-4 minutes. Daughter denies seizure hx. Reports similar sx 3-4 years ago. Pt. also has hx of falls and ambulates w/walker. Pt. reports cough and congestion for the past several days but denies fever or chills. Pt. is uahz-ao-laopizo and responds to questions when asked in close proximity. Pt. and daughter report chronic constipation but deny recent illness or sick contacts, fever, chills, headache, changes in vision, unusual bleeding, abdominal pain, nausea, vomiting, diarrhea, dizziness, lightheadedness, numbness , or tingling. Past Med Surg Social Fam HX - Past Medical History Source: patient, old records reviewed, obtained from family Medical history: atrial fibrillation, dementia, diabetes, hyperlipidemia, hypertension, thyroid disease, other Additional medical history: HX OF RECURRENT UTI. CHR. CONSTIPATION. INH. ALLERGIES. Psychiatric history: depression - Past Surgical History Surgical History: orthopedic, other Additional surgical history: rotator cuff sx. - Social History Smoking Status: Never smoker Smokeless Tobacco Status: No Alcohol use: none Drug use: none Current living situation: Home, With Family Activity Level: Uses cane/walker Recent Out of Country Travel Within the Last 8 Weeks: No Exposure or Possible Exposure to Illness During Travel: No - Family History Mother Race: Family Member Ethnicity: Non- Living Status: Age at : 70 Cause of : Ruptured intestine Hx Family GI Disorders: Yes Father Race: Family Member Ethnicity: Non- Living Status: Age at : 60 Cause of : [place] Hx Family Cardiac Disorders: Yes ([place]) Sister Race: Family Member Ethnicity: Non- Living Status: Age at : 82 Cause of : Alzheimer's disease complications Hx Family Neurologic Disorders: Yes (Alzheimer's disease) Internal Medicine - H&P: Meds Aspirin Enteric Coated [Aspirin EC] 81 mg PO QPM 01/27/15 [History] Acetaminophen [Tylenol Arthritis] 650 mg PO DAILY PRN 07/16/15 [History] Glimepiride [Amaryl] 2 mg PO 0800 10/02/16 [History] Diltiazem CD (24hr) [Cardizem CD] 120 mg PO DAILY #30 cap.er.24h 10/03/16 [Rx] Atorvastatin [Lipitor] 10 mg PO HS 07/09/17 [History] Calcium Carbonate/Vitamin D3 [Calcium 600 + Vit D Softgel] 1 tab PO BID [History] Donepezil [Aricept] 5 mg PO HS 07/09/17 [History] Levothyroxine Sodium 50 mcg PO QAM 07/09/17 [History] Metformin HCl [Glucophage] 1,000 mg PO BID 07/09/17 [History] Montelukast [Singulair] 10 mg PO DAILY 07/09/17 [History] Multivitamin [One Daily Multivitamin] 1 tab PO QAM 07/09/17 [History] Pioglitazone [Actos] 15 mg PO DAILY 07/09/17 [History] Docusate [Colace] 100 mg PO BID PRN 08/02/17 [History] Mirtazapine 7.5 mg PO HS 10/31/17 [History] 3 Allergy/AdvReac Type Severity Reaction Status Date / Time No Known Allergies Allergy Verified 10/31/17 09:32 All Systems PM: A 10-system review of systems was performed and is negative for pertinent findings except as documented above in the HPI. - Constitutional Constitutional: as per HPI, falls, no chills, no fever(s), no night sweats - EENT Eyes: no change in vision, no discharge, no pain, no photophobia Ears: no ear discharge, no ear pain, no tinnitus Nose, mouth and throat: no dysphagia, no nasal discharge, no neck pain, no sore throat - Breasts Breasts: as per HPI - Cardiovascular Cardiovascular ROS IM: as per HPI, irregular heart rhythm (Hx of atrial fibrillation), syncope, no chest pain, no diaphoresis, no dyspnea, no lightheadedness, no palpitations - Respiratory Respiratory: as per HPI, cough, excessive phlegm production, no dyspnea, no wheezing - Gastrointestinal Gastrointestinal: as per HPI, constipation, no abdominal pain, no diarrhea, no hematemesis, no hematochezia, no melena, no nausea, no vomiting - Genitourinary Genitourinary: as per HPI, no change in urinary stream, no dysuria, no flank pain, no hematuria Menstruation: as per HPI - Musculoskeletal Musculoskeletal ROS IM: no numbness, no tingling - Integumentary Integumentary IM: no rash, no unusual bruising - Neurological Neurological ROS: as per HPI, memory loss (Hx of dementia), no confusion, no convulsions, no focal weakness, no numbness, no tingling, no tremor(s) - Psychiatric Psychiatric: as per HPI, depression, memory loss (Hx of dementia) - Endocrine Endocrine IM: as per HPI - Hematologic/Lymphatic Hematologic/Lymphatic: no easy bruising - Allergic/Immunologic Allergic/Immunologic: as per HPI - Constitutional Vitals: Temp Pulse Resp BP Pulse Ox 97.7 F 84 16 149/74 96 10/31/17 09:24 10/31/17 12:46 10/31/17 12:46 10/31/17 12:46 10/31/17 12:46 General appearance: Present: cooperative, A&O X 2, pleasant, no acute distress, obese, answers questions appropriately (Pt. is [id number]) Exam: Pt. examined at bedside in ED. According to daughter, pt. is back at baseline. Daughter reports syncopal episode while at pts. PCP today that lasted 3-4 minutes w/pt. spontaneously improving. Hx of same sx 3-4 years ago. Denies seizure hx. Pt. does have hx of atrial fibrillation. Reports cough w/sputum production but denies any other sx or complaints on exam. Pt. eating and resting comfortably in bed. Slight wheezes present on auscultation in left lung. - Head Head exam: Present: atraumatic, normocephalic - Eye Eye exam: Present: PERRL, conjuntiva pink, sclera anicteric Pupils: Present: PERRL - ENT ENT exam: Present: normal exam - Neck Neck exam general surgery: Present: normal inspection, supple, trachea midline. Absent: lymphadenopathy - Respiratory Respiratory exam: Present: CTAB, wheezes. Absent: accessory muscle use, rales, rhonchi - Cardiovascular Cardiovascular exam: Present: RRR, +S1, +S2. Absent: diastolic murmur, gallop, rubs, systolic murmur - GI/Abdominal GI/Abdominal exam: Present: normal bowel sounds, soft, no peritoneal signs. Absent: distended, tenderness - Rectal Rectal exam: Present: deferred - Additional comments: exam deferred. - Extremities Exam Extremities exam: Present: warm, radial pulses palpable and symmetrical. Absent : calf tenderness, cyanotic, pedal edema - Back Exam Back exam: Present: normal inspection - Neurological Exam Neurological exam: Present: alert, CN II-XII intact, no focal deficits. Absent : pronater drift, facial droop, speech deficit - Psychiatric Psychiatric exam: Present: normal affect, normal mood - Skin Skin exam: Present: dry, intact Internal Med - H&P Results - Labs CBC & Chem 7: 10/31/17 10:13 10/31/17 10:13 - EKG Data EKG shows normal: sinus rhythm - EKG Data Prior EKG available for review: yes EKG comments: 10/31/17 13:30 EKG dated 08/03/17 shows sinus bradycardia with sinus arrhythmia, possible right ventricular conduction delay, left anterior fascicular block, possible anterior myocardial infarction of indeterminate age. EKG dated 10/31/17 shows sinus rhythm with incomplete RBBB and LAFB. - Diagnostic Studies Chest x-ray Additional comments: Impressions Chest X-Ray 10/31/17 09:32 IMPRESSION: No acute process. D/ / Vinod Medley MD / Vinod Medley MD Interpreting Provider: Vinod Medley MD CT scan - head Additional comments: Impressions Head CT 10/31/17 11:20 IMPRESSION: No acute intracranial abnormality. D/ / 10/31/2017 12:58:59 Elpidio Bowman MD / sd Interpreting Provider: Elpidio Bowman MD - Assessment and plan (1) Syncope Current Visit: Yes Status: Acute Assessment and plan: Acute syncope that pts. daughter reports occurred at PCP while there for well check. [facility] pt. slumped over and began twitching in the office. [facility] personnel could not find pulse and pt. was not breathing but spontaneously improved w/o cardiac resuscitation. Episode lasted approx. 3-4 minutes. Daughter denies seizure hx. Reports similar sx 3-4 years ago. Pt. also has hx of falls and ambulates w/walker. Hx of atrial fibrillation. CT of the head today shows no acute intracranial abnormality. Pt. back to baseline on assessment exam. Continuous cardiac telemetry. Bilateral carotid Dopplers. Orthostatic BPs and VS. Falls/safety precautions and up with assist only. PT/OT consults. MRI of the head/brain ordered to r/o infarct/ischemia. Consider Neurology consult if MRI results abnormal. Pt. is moderate risk for further morbidity and complications d/t current syncopal episode of unknown etiology, hx of previous sx 3-4 years ago, hx of atrial fibrillation w/o anticoagulation; and risk factors of DM, thyroid disease, HTN, HLD, dementia, and Afib. Observation. Qualifiers: Syncope type: unspecified Qualified Code(s): R55 - Syncope and collapse (2) REENA (acute kidney injury) Current Visit: Yes Status: Acute Assessment and plan: REENA w/GFR of 48 on admission. Creatinine 03/02. GFR >60 on 08/04/17. Hx of fluctuating CKD. 0.9 NS IV fluids @ 75 mLs/HR. Monitor pt. and f/u labs. Monitor I&O and daily weight. (3) Cough Current Visit: Yes Status: Acute Assessment and plan: Acute cough w/sputum production for the past several days. Respiratory infection panel ordered. Mucinex. Xopenex IH Q6HR w/respiratory consult for flutter valve w/breathing txs d/t pts. atrial fibrillation. (4) HTN (hypertension) Current Visit: Yes Status: Chronic Assessment and plan: Hx of chronic HTN. Monitor pt. and VS. Continue pts. Cardizem. Add Hydralazine 10 mg Q6HR IVP PRN w/parameters. Qualifiers: Hypertension type: essential hypertension Qualified Code(s): I10 - Essential (primary) hypertension (5) HLD (hyperlipidemia) Current Visit: Yes Status: Chronic Assessment and plan: Hx of chronic HLD. Lipid panel in a.m. labs. Continue pts. Lipitor. Qualifiers: Hyperlipidemia type: pure hypercholesterolemia Qualified Code(s): E78.00 - Pure hypercholesterolemia, unspecified; E78.0 - Pure hypercholesterolemia (6) Hypothyroidism Current Visit: Yes Status: Chronic Assessment and plan: Hx of chronic hypothyroidism. TSH and free T4 ordered. Continue patient's levothyroxine. Qualifiers: Hypothyroidism type: acquired Qualified Code(s): E03.9 - Hypothyroidism, unspecified (7) Diabetes mellitus Current Visit: Yes Status: Chronic Assessment and plan: Hx of chronic diabetes mellitus controlled by oral anti-hyperglycemic medications. Hold Metformin and continue Actos and Amaryl. Add low-dose correction sliding scale insulin and hypoglycemic protocol. BG checks ACHS. A1c in a.m. labs. Qualifiers: Diabetes mellitus type: type 2 Diabetes mellitus watermaster insulin use: without watermaster use Diabetes mellitus complication status: without complication Qualified Code(s): E11.9 - Type 2 diabetes mellitus without complications (8) A-fib Current Visit: Yes Status: Chronic Assessment and plan: Hx of chronic atrial fibrillation. SR on admission. Pt. only takes aspirin for anticoagulation currently. SQ heparin for DVT prophylaxis. Continuous cardiac telemetry. Continue pts. PO Cardizem. Qualifiers: Atrial fibrillation type: chronic Qualified Code(s): I48.2 - Chronic atrial fibrillation (9) Dementia Current Visit: Yes Status: Chronic Assessment and plan: Hx of chronic dementia. Falls/safety precautions and up with assist only. Continue pts. Aricept. Qualifiers: Dementia type: unspecified type Dementia behavioral disturbance: without behavioral disturbance Qualified Code(s): F03.90 - Unspecified dementia without behavioral disturbance (10) DVT prophylaxis Current Visit: Yes Status: Acute Assessment and plan: Heparin 5,000 units SQ Q12HR for DVT prophylaxis. Monitor pt. for signs of bleeding. - Time Spent With Patient Total time spent is greater than 50% in coordination of care (as documented) at patient's floor/unit and/or counseling patient: Greater than 35 minutes
[2017-10-31 14:32] LABS: Thyroid Stimulating Hormone 8.155 mcIU/mL (0.340-5.600)
[2017-10-31] MEDS: Levalbuterol Neb 1.25 MG/3 ML IH SCH ×2 (15:33→22:33)
[2017-10-31] MEDS: Insulin LISPRO 300 UNITS/3 ML VIAL SQ SCH ×2 (17:25→20:42)
[2017-10-31] MEDS: 0.9 % Sodium Chloride 1,000 ML IVC SCH (17:32)
[2017-10-31] MEDS ORDERED: *HR* Metoprolol 5 MG/5 ML VIAL IVP ONE (17:40)
--- NOTE | 2017-10-31 18:31 | Electrocardiograph Report ---
[place] [employer] Test Date: 2017-10-31 Pat Name: Anyi Tran Department: [id number] Room: 3B23 Gender: F Rn Internal Medicine: : 1930 Requested By: Shine Serna Order Number: [id number] Reading MD: Ramy Ceballos Measurements Intervals [place] Rate: 66 P: 72 WA: 207 QRS: -67 QRSD: 111 T: 28 QT: 449 QTc: 471 Interpretive Statements Sinus rhythm Incomplete RBBB and LAFB Electronically Signed On 10-31-2017 18:30:27 EDT by Ramy Ceballos
[2017-10-31] MEDS: Mirtazapine 15 MG TABLET PO SCH (20:41)
[2017-10-31] MEDS: Aspirin Enteric Coated 81 MG Tablet PO SCH (20:41)
[2017-10-31] MEDS: *HR* Heparin 5,000 UNIT/ML VIAL SQ SCH (20:42)
[2017-10-31] MEDS ORDERED: NON-FORMULARY MEDICATION 1 EACH EACH (Calcium Carbonate/Vitamin D3 [Calcium 600 + Vit D So PO SCH (21:00)
[2017-11-01 00:21] LABS: Adenovirus Not Detected (Not Detect); Bordetella Pertussis Not Detected (Not Detect); Chlamydophila pneumoniae Not Detected (Not Detect); Coronavirus 229E Not Detected (Not Detect); Coronavirus HKU1 Not Detected (Not Detect); Coronavirus NL63 Not Detected (Not Detect); Coronavirus OC43 Not Detected (Not Detect); Human Metapneumovirus Not Detected (Not Detect); Human Rhinovirus/Enterovirus Not Detected (Not Detect); Influenza A Subtype 2009 H1 Not Detected (Not Detect); Influenza A Untypeable Not Detected (Not Detect); Influenza B Not Detected (Not Detect); Mycoplasma pneumoniae Not Detected (Not Detect); Parainfluenza Virus 1 Not Detected (Not Detect); Parainfluenza Virus 2 Not Detected (Not Detect); Parainfluenza Virus 3 Not Detected (Not Detect); Parainfluenza Virus 4 Not Detected (Not Detect); Respiratory Syncytial Virus Not Detected (Not Detect)
[2017-11-01] MEDS: Levalbuterol Neb 1.25 MG/3 ML IH SCH ×4 (04:26→21:22)
[2017-11-01 04:46] LABS: Alanine Aminotransferase 14 Units/L (7-52); Albumin 3.6 g/dL (3.5-5.7); Albumin/Globulin Ratio 1.4 (1.1-2.2); Alkaline Phosphatase 58 Units/L (34-104); Aspartate Amino Transferase 18 Units/L (13-39); BUN/Creatinine Ratio 23 (6-26); Bilirubin,Total 0.3 mg/dL (0.3-1.0); Blood Urea Nitrogen 19 mg/dL (8-23); Carbon Dioxide 25 mEq/L (23-29); Chloride 106 mEq/L (98-107); Chol/HDL Ratio 3.1 (0-4.9); Cholesterol 118 mg/dL (< 200); Globulin 2.5 g/dL (2.4-3.5); Glucose 115 mg/dL (70-105); HDL Cholesterol 38 mg/dL (40-59); LDL Cholesterol,Calculated 56 mg/dL (0-99); Magnesium 1.5 mg/dL (1.6-2.6); Osmolality,Calculated 291 (280-300); Potassium 3.7 mEq/L (3.5-5.1); Sodium 139 mEq/L (136-145); Total Protein 6.1 g/dL (6.4-8.9); Triglycerides 120 mg/dL (< 150); eGFR For Non-African Americans > 60 (> 60)
[2017-11-01 04:50] LABS: Basophils % 0.3 %; Eosinophils # 0.1 K/mcL (0.0-0.6); Eosinophils % 1.3 %; Hematocrit 38.2 % (35.3-44.9); Hemoglobin 12.5 g/dL (11.5-15.4); Immature Granulocytes % 0.2 % (0-4); Lymphocytes # 1.5 K/mcL (0.6-4.6); Mean Corpuscular HGB Conc 32.7 g/dL (31.6-35.5); Mean Corpuscular Volume 91.6 fL (83.0-100.0); Mean Platelet Volume 12.2 fL (9.4-12.4); Monocytes # 0.5 K/mcL (0.0-1.3); Neutrophils # 4.1 K/mcL (1.6-8.9); Platelet Count 173 K/mcL (140-400); Red Blood Count 4.17 M/mcL (3.82-4.97); Red Cell Distribution Width 14.7 % (11.5-14.5); Segmented Neutrophils % 66.2 %
[2017-11-01] MEDS: Mirtazapine 15 MG TABLET PO SCH ×2 (05:32→20:47)
[2017-11-01] MEDS: Aspirin Enteric Coated 81 MG Tablet PO SCH ×2 (05:33→17:32)
[2017-11-01] MEDS: *HR* Heparin 5,000 UNIT/ML VIAL SQ SCH ×2 (06:06→17:32)
[2017-11-01] MEDS: Insulin LISPRO 300 UNITS/3 ML VIAL SQ SCH ×4 (07:54→20:49)
[2017-11-01 08:31] LABS: Estimated Average Glucose 131 mg/dl; Hemoglobin A1C 6.2 %
[2017-11-01] MEDS: Cholecalciferol (D-3) 1,000 UNIT TABLET PO SCH (08:41)
[2017-11-01] MEDS: *HR* Pioglitazone 15 MG TABLET PO SCH (08:41)
[2017-11-01] MEDS: Multivit/Ca/Min/Fe/FA 1 TAB TABLET PO SCH (08:41)
[2017-11-01] MEDS: *HR* Glimepiride 2 MG TABLET PO SCH (08:41)
[2017-11-01] MEDS ORDERED: Diltiazem CD (24hr) 120 MG CAPSULE PO SCH (09:00)
[2017-11-01] MEDS: 0.9 % Sodium Chloride 1,000 ML IVC SCH ×2 (10:15→17:28)
--- NOTE | 2017-11-01 11:35 | Internal Med Progress Note ---
Hospitalist Progress Note - Encounter Date of Encounter: 11/01/17 Time of Encounter: 08:15 - Subjective Interval History: Patient is lying in bed. Awakes but not responding to questions. According to patient's daughter this is her baseline. No new episodes of seizure-like activity. Patient does not have any complaints at this time. - Exam Vitals: Temp Pulse Resp BP Pulse Ox 97.8 F 59 18 138/75 94 11/01/17 07:19 11/01/17 07:19 11/01/17 07:19 11/01/17 10:20 11/01/17 07:19 Exam: General: Patient is alert, no acute distress, not verbally communicative at baseline but does smile and interact. Respiratory: Good respiratory effort. Normal breath sounds. No wheezing or crackles. Cardiovascular: Regular rate and rhythm. s1 and s2 normal No clicks, rubs, gallops, or murmurs. No pedal edema Abdomen: Abdomen is soft, nontender. Bowel sounds are present Musculoskeletal: Spontaneously moving both upper extremities. Skin: warm, dry, intact. Neuro: Somnolent and easily awakes. Not communicative verbally at baseline. - Assessment and Plan (1) Syncope Current Visit: Yes Status: Acute Assessment and Plan: No new episodes of syncope. Could be related to orthostasis/A. fib. Patient is orthostatic vital signs show a drop in blood pressure from a sitting to standing position but stable from a lying position. She did receive IV fluids overnight. We will get EEG to rule out seizure-like activity. MRI of the brain did not show any acute intracranial process but patient did appear to have some signs of otomastoiditis. She is currently not having any complaints of ear pain. Recommend outpatient follow-up. (2) REENA (acute kidney injury) Current Visit: Yes Status: Resolved Assessment and Plan: Resolved (3) Dementia Current Visit: Yes Status: Chronic Assessment and Plan: Patient currently appears to be at baseline. Discussed with patient's daughter and caregiver. She reports that she will take her home when she is medically stable and she already has home health arranged. (4) HTN (hypertension) Current Visit: Yes Status: Chronic Assessment and Plan: Continue home medications. On Cardizem 120 mg daily. (5) HLD (hyperlipidemia) Current Visit: Yes Status: Chronic Assessment and Plan: Continue Lipitor (6) Hypothyroidism Current Visit: Yes Status: Chronic Assessment and Plan: On levothyroxine (7) DVT prophylaxis Current Visit: Yes Status: Acute Assessment and Plan: Subcutaneous heparin (8) Diabetes mellitus Current Visit: Yes Status: Chronic Assessment and Plan: Well-controlled. Continue low-dose insulin regimen (9) A-fib Current Visit: Yes Status: Chronic Assessment and Plan: Rate controlled. On Cardizem. Patient is not a candidate for anticoagulation due to advanced age and underlying dementia and instability (10) Cough Current Visit: Yes Status: Acute Assessment and Plan: Respiratory infection panel was negative. Currently not having cough. We will continue bronchodilators and O2 supplementation as needed. - Time Spent with Patient Total time spent is greater than 50% in coordination of care (as documented) at patient's floor/unit and/or counseling patient: Internal Medicine: Result - Labs CBC & Chem 7: 11/01/17 02:33 11/01/17 02:33 Labs: Short CBC 11/01/17 Range/Units 02:33 WBC 6.1 (4.3-11.1) K/mcL Hgb 12.5 (11.5-15.4) g/dL Hct 38.2 (35.3-44.9) % Plt Count 173 (140-400) K/mcL Neutrophils # 4.1 (1.6-8.9) K/mcL BMP 11/01/17 02:33 Sodium 139 Potassium 3.7 Chloride 106 Carbon Dioxide 25 BUN 19 Creatinine 0.84 Glucose 115 H Calcium 9.0 Liver Function 11/01/17 Range/Units 02:33 Total Bilirubin 0.3 (0.3-1.0) mg/dL AST 18 (13-39) Units/L ALT 14 (7-52) Units/L Alkaline Phosphatase 58 (34-104) Units/L Albumin 3.6 (3.5-5.7) g/dL - ABG Interpretation ABG results: PT/INR, D-dimer PT 11.1 Seconds (9.4-12.1) 10/31/17 10:13 - Impressions Impressions Brain MRI 10/31/17 13:55 IMPRESSION: No acute infarct. Severe left mastoid effusion with fluid filling the middle ear. Rule out otomastoiditis. D/ / Abdi Pérez MD / Abdi Pérez MD Interpreting Provider: Abdi Pérez MD Consult Discharge Plan - Plan Referrals: Amelia Reddy CNP [Primary Care Provider] - (1) Syncope Qualifiers: Syncope type: unspecified Qualified Code(s): R55 - Syncope and collapse (3) Dementia Qualifiers: Dementia type: unspecified type Dementia behavioral disturbance: without behavioral disturbance Qualified Code(s): F03.90 - Unspecified dementia without behavioral disturbance (4) HTN (hypertension) Qualifiers: Hypertension type: essential hypertension Qualified Code(s): I10 - Essential (primary) hypertension (5) HLD (hyperlipidemia) Qualifiers: Hyperlipidemia type: pure hypercholesterolemia Qualified Code(s): E78.00 - Pure hypercholesterolemia, unspecified; E78.0 - Pure hypercholesterolemia (6) Hypothyroidism Qualifiers: Hypothyroidism type: acquired Qualified Code(s): E03.9 - Hypothyroidism, unspecified (8) Diabetes mellitus Qualifiers: Diabetes mellitus type: type 2 Diabetes mellitus longterm insulin use: without longterm use Diabetes mellitus complication status: without complication Qualified Code(s): E11.9 - Type 2 diabetes mellitus without complications (9) A-fib Qualifiers: Atrial fibrillation type: chronic Qualified Code(s): I48.2 - Chronic atrial fibrillation
--- NOTE | 2017-11-01 14:25 | Neurology - Consult Note ---
Date of Encounter: 11/01/17 Time of Encounter: 14:23 Assessment and Plan (1) Convulsive syncope Current Visit: Yes Status: Acute This elderly patient who has an also has a history of dementia admitted with syncopal episode and did have some jerking perhaps did have some convulsion With the syncope , which could be seen in the patient with the hypoperfusion to the brain. Though it may look like a seizure but does not necessarily a true convulsive seizure. At the moment patient seems to be back to her baseline do not think that she would require any anticonvulsive therapy MRI also did not show any evidence of stroke. 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 Discussed with the daughter, ok to DISCHARGE from neurology standpoint (2) Mastoiditis, acute Current Visit: Yes Status: Acute Qualifiers: Laterality: bilateral Qualified Code(s): H70.003 - Acute mastoiditis without complications, bilateral (3) Dementia Current Visit: Yes Status: Chronic Qualifiers: Dementia type: unspecified type Dementia behavioral disturbance: without behavioral disturbance Qualified Code(s): F03.90 - Unspecified dementia without behavioral disturbance History of Present Illness HPI: Ms. Tran is a 87 year old female with PMH of atrial fibrillation, dementia, diabetes controlled with oral antihyperglycemic medications, HLD, HTN, and thyroid disease admitted via emergency room after having syncopal episode at her primary care office . According to the patient and daughter she was at PCP for well check and slumped over and began twitching in the office. States personnel could not find pulse and pt. was not breathing but spontaneously improved w/o cardiac resuscitation. Episode lasted approx. 3-4 minutes. Daughter denies seizure hx. Reports similar sx 3-4 years ago. Pt. also has hx of falls and ambulates w/ walker. Pt. reports cough and congestion for the past several days but denies fever or chills. Pt. is [id number] and responds to questions when asked in close proximity. Pt. and daughter denies any recent illness or sick contacts, fever, chills, headache, changes in vision, unusual bleeding, abdominal pain, nausea, vomiting, diarrhea, dizziness, lightheadedness, numbness, or tingling. Baseline patient has dementia but able to recognize the family members do need help with daily activities and has limited conversation Past Med Surg Social Fam HX - Past Medical History Medical history: atrial fibrillation, dementia, diabetes, hyperlipidemia, hypertension, thyroid disease, other Additional medical history: HX OF RECURRENT UTI. CHR. CONSTIPATION. INH. ALLERGIES. Psychiatric history: depression - Past Surgical History Surgical History: orthopedic, other Additional surgical history: rotator cuff sx. - Social History Smoking Status: Never smoker Smokeless Tobacco Status: No Alcohol use: none Drug use: none - Family History Mother Race: Family Member Ethnicity: Non- Living Status: Age at : 70 Cause of : Ruptured intestine Hx Family GI Disorders: Yes Sister Race: Family Member Ethnicity: Non- Living Status: Age at : 82 Cause of : Alzheimer's disease complications Hx Family Neurologic Disorders: Yes (Alzheimer's disease) Father Race: Family Member Ethnicity: Non- Living Status: Age at : 60 Cause of : NC Hx Family Cardiac Disorders: Yes (NC) Hx Family Respiratory Disorders: No Hx Family Cancer: No Hx Family GI Disorders: No Hx Family Endocrine Disorder: No Hx Family Neuromuscular Disorders: No Hx Family Neurologic Disorders: No Hx Family HEENT Disorders: No Hx Family Autoimmune Disorders: No Medications and Allergies Aspirin Enteric Coated [Aspirin EC] 81 mg PO QPM 01/27/15 [History] Acetaminophen [Tylenol Arthritis] 650 mg PO DAILY PRN 07/16/15 [History] Glimepiride [Amaryl] 2 mg PO 0800 10/02/16 [History] Diltiazem CD (24hr) [Cardizem CD] 120 mg PO DAILY #30 cap.er.24h 10/03/16 [Rx] Atorvastatin [Lipitor] 10 mg PO HS 07/09/17 [History] Calcium Carbonate/Vitamin D3 [Calcium 600 + Vit D Softgel] 1 tab PO BID [History] Donepezil [Aricept] 5 mg PO HS 07/09/17 [History] Levothyroxine Sodium 50 mcg PO QAM 07/09/17 [History] Metformin HCl [Glucophage] 1,000 mg PO BID 07/09/17 [History] Montelukast [Singulair] 10 mg PO DAILY 07/09/17 [History] Multivitamin [One Daily Multivitamin] 1 tab PO QAM 07/09/17 [History] Pioglitazone [Actos] 15 mg PO DAILY 07/09/17 [History] Docusate [Colace] 100 mg PO BID PRN 08/02/17 [History] Mirtazapine 7.5 mg PO HS 10/31/17 [History] 3 Allergy/AdvReac Type Severity Reaction Status Date / Time No Known Allergies Allergy Verified 10/31/17 09:32 All Systems: The remainder of the systems were reviewed and are negative Physical Examination - Vital Signs Vital Signs: Initial Vital Signs Temp Pulse Resp BP Pulse Ox 97.7 F 69 18 141/54 98 10/31/17 09:24 10/31/17 09:24 10/31/17 09:24 10/31/17 09:24 10/31/17 09:24 - Constitutional General appearance: comfortable - Neurologic Sensorimotor examination: intact Detailed motor examination: grossly full strength in all extremities Motor examination - right side: 4/5: biceps, triceps, wrist flexion, wrist extension, consumer marketing specialist, hip flexors, tibialis Anterior, quadriceps, toe extension (EHL) , plantarflexion Motor examination - left side: 4/5: deltoids, biceps, triceps, wrist flexion, wrist extension, hip flexors, consumer marketing specialist, quadriceps, tibialis Anterior, toe extension (EHL), plantarflexion Detailed sensory examination: intact Reflexes: Biceps: 1+, Triceps: 1+, Brachioradialis: 1+, Patella: 1+, Achilles: 1 + Mental Status Examination: awake, alert, oriented to person, opens eyes to noxious stimulation, makes eye contact, follows simple commands, localizes noxious stimulation Cranial nerve examination: PERRL, EOMI, visual parson intact, no facial asymmetry is present, no dysarthria (No focal motor deficit on formal neurological examination) Results - Laboratory Findings CBC and BMP: 11/01/17 02:33 11/01/17 02:33 Abnormal lab findings: Abnormal lab results RDW 14.7 % (11.5-14.5) H 11/01/17 02:33 Glucose 115 mg/dL (70-105) H 11/01/17 02:33 POC Glucose 124 mg/dL (70-99) H 10/31/17 15:35 Hemoglobin A1c 6.2 % (-5.6) H 11/01/17 02:33 Magnesium 1.5 mg/dL (1.6-2.6) L 11/01/17 02:33 Serum Total Protein 6.1 g/dL (6.4-8.9) L 11/01/17 02:33 HDL Cholesterol 38 mg/dL (40-59) L 11/01/17 02:33 TSH 8.155 mcIU/mL (0.340-5.600) H 10/31/17 10:13 - Diagnostic Findings Additional findings: MRI of the brain did not show any acute infarct in the shows evidence of severe mastoiditis Consult Discharge Plan - Plan Referrals: Amelia Reddy CNP [Primary Care Provider] -
[2017-11-01] MEDS ORDERED: *HR* Metoprolol 5 MG/5 ML VIAL IVP ONE ×2 (18:28→18:30)
[2017-11-02] MEDS: Levalbuterol Neb 1.25 MG/3 ML IH SCH ×2 (04:21→10:59)
[2017-11-02 05:24] LABS: Basophils % 0.3 %; Eosinophils # 0.1 K/mcL (0.0-0.6); Eosinophils % 2.1 %; Hematocrit 38.6 % (35.3-44.9); Hemoglobin 12.3 g/dL (11.5-15.4); Immature Granulocytes % 0.2 % (0-4); Lymphocytes # 1.4 K/mcL (0.6-4.6); Lymphocytes % 23.2 %; Mean Corpuscular HGB Conc 31.9 g/dL (31.6-35.5); Mean Corpuscular Hemoglobin 29.3 pg (28.0-33.3); Mean Corpuscular Volume 91.9 fL (83.0-100.0); Mean Platelet Volume 12.1 fL (9.4-12.4); Monocytes # 0.5 K/mcL (0.0-1.3); Monocytes % 8.2 %; Neutrophils # 3.9 K/mcL (1.6-8.9); Platelet Count 161 K/mcL (140-400); Red Cell Distribution Width 14.8 % (11.5-14.5)
[2017-11-02] MEDS: *HR* Heparin 5,000 UNIT/ML VIAL SQ SCH (06:22)
[2017-11-02] MEDS: 0.9 % Sodium Chloride 1,000 ML IVC SCH ×2 (06:30→07:36)
[2017-11-02 07:19] LABS: Alanine Aminotransferase 14 Units/L (7-52); Albumin 3.5 g/dL (3.5-5.7); Albumin/Globulin Ratio 1.5 (1.1-2.2); Alkaline Phosphatase 56 Units/L (34-104); Aspartate Amino Transferase 19 Units/L (13-39); BUN/Creatinine Ratio 22 (6-26); Bilirubin,Total 0.3 mg/dL (0.3-1.0); Blood Urea Nitrogen 22 mg/dL (8-23); Carbon Dioxide 23 mEq/L (23-29); Chloride 110 mEq/L (98-107); Globulin 2.4 g/dL (2.4-3.5); Glucose 155 mg/dL (70-105); Osmolality,Calculated 296 (280-300); Potassium 3.9 mEq/L (3.5-5.1); Sodium 140 mEq/L (136-145); Total Protein 5.9 g/dL (6.4-8.9); eGFR For Non-African Americans 52 (> 60)
[2017-11-02] MEDS: Multivit/Ca/Min/Fe/FA 1 TAB TABLET PO SCH (07:36)
[2017-11-02] MEDS: Cholecalciferol (D-3) 1,000 UNIT TABLET PO SCH (07:36)
[2017-11-02] MEDS: *HR* Pioglitazone 15 MG TABLET PO SCH (07:37)
[2017-11-02] MEDS: *HR* Glimepiride 2 MG TABLET PO SCH (07:37)
[2017-11-02] MEDS: Insulin LISPRO 300 UNITS/3 ML VIAL SQ SCH (08:45)
[2017-11-02 11:47] VITALS: BP 146/76
--- NOTE | 2017-11-02 12:08 | Discharge Summary ---
- NOTES TO OUTPATIENT PROVIDER Notes to Outpatient Provider: Patient was hospitalized here after she was sent over from primary care provider's office for syncopal episode with possible seizures. She does not have a history of seizure but did have some twitching in the medical office does not wish she passed out. By the time she came to the ER she was already recovering. She has not had any further episodes of seizures or syncope. Workup has been done to evaluate her syncopal episode further including MRI of the brain which did not show any acute intracranial processes but she had left mastoid effusion concerning for mastoiditis but patient was completely asymptomatic from that standpoint. Neurology consultation was obtained and further evaluation, no further workup was recommended. Patient did develop an episode of atrial fibrillation with RVR and was placed on intravenous Cardizem and her heart rate is now improved. At this time, patient is stable to be discharged home. I recommend changing her Cardizem dosage to 4 times a day as patient may not be able to take the full dose at a time due to her poor swallowing capacity. Patient is not on anticoagulation due to her advanced age, dementia, high risk for fall and comorbidities. Orders not resulted at time of discharge: Pending orders 10/31/17 17:30 EKG [ECG 12 lead ECG] [ECG] Stat 11/01/17 18:25 EKG [ECG 12 lead ECG] [ECG] Stat 11/03/17 04:00 Complete Blood Count [HEME] AM 0400 Comprehensive Metabolic Panel AM 0400 Date of Encounter: 11/02/17 Time of Encounter: 12:07 - Discharge Diagnosis (1) Syncope Priority: Primary Status: Acute Qualifiers: Syncope type: unspecified Qualified Code(s): R55 - Syncope and collapse (2) REENA (acute kidney injury) Priority: Secondary Status: Resolved (3) Dementia Priority: Secondary Status: Chronic Qualifiers: Dementia type: unspecified type Dementia behavioral disturbance: without behavioral disturbance Qualified Code(s): F03.90 - Unspecified dementia without behavioral disturbance (4) HTN (hypertension) Priority: Secondary Status: Chronic Qualifiers: Hypertension type: essential hypertension Qualified Code(s): I10 - Essential (primary) hypertension (5) HLD (hyperlipidemia) Priority: Secondary Status: Chronic Qualifiers: Hyperlipidemia type: pure hypercholesterolemia Qualified Code(s): E78.00 - Pure hypercholesterolemia, unspecified; E78.0 - Pure hypercholesterolemia (6) Hypothyroidism Priority: Secondary Status: Chronic Qualifiers: Hypothyroidism type: acquired Qualified Code(s): E03.9 - Hypothyroidism, unspecified (7) DVT prophylaxis Priority: Secondary Status: Acute (8) Diabetes mellitus Priority: Secondary Status: Chronic Qualifiers: Diabetes mellitus type: type 2 Diabetes mellitus rat exterminator insulin use: without rat exterminator use Diabetes mellitus complication status: without complication Qualified Code(s): E11.9 - Type 2 diabetes mellitus without complications (9) A-fib Priority: Secondary Status: Chronic Qualifiers: Atrial fibrillation type: chronic Qualified Code(s): I48.2 - Chronic atrial fibrillation (10) Cough Priority: Secondary Status: Resolved Hospital course: Ms. Tran is a 87 year old female Patient with history of atrial fibrillation, dementia, diabetes, hypertension and thyroid disease was hospitalized here after she was sent over from primary care provider's office for syncopal episode with possible seizures. She does not have a history of seizure but did have some twitching in the medical office does not wish she passed out. By the time she came to the ER she was already recovering. She has not had any further episodes of seizures or syncope. Workup has been done to evaluate her syncopal episode further including MRI of the brain which did not show any acute intracranial processes but she had left mastoid effusion concerning for mastoiditis but patient was completely asymptomatic from that standpoint. Neurology consultation was obtained and further evaluation, no further workup was recommended. Patient did develop an episode of atrial fibrillation with RVR and was placed on intravenous Cardizem and her heart rate is now improved. At this time, patient is stable to be discharged home. I recommend changing her Cardizem dosage to 4 times a day as patient may not be able to take the full dose at a time due to her poor swallowing capacity. Patient is not on anticoagulation due to her advanced age, dementia, high risk for fall and comorbidities. Discharge discussed with: patient, family, nurse - Time Spent with Patient Total time spent providing and/or coordinating discharge services: Greater than 30 minutes (35 min) - Discharge Medications Prescriptions: Diltiazem [Cardizem] 30 mg PO QID #120 tablet Home Medications: Aspirin Enteric Coated [Aspirin EC] 81 mg PO QPM 01/27/15 [History] Acetaminophen [Tylenol Arthritis] 650 mg PO DAILY PRN 07/16/15 [History] Glimepiride [Amaryl] 2 mg PO 0800 10/02/16 [History] Atorvastatin [Lipitor] 10 mg PO HS 07/09/17 [History] Calcium Carbonate/Vitamin D3 [Calcium 600 + Vit D Softgel] 1 tab PO BID [History] Donepezil [Aricept] 5 mg PO HS 07/09/17 [History] Levothyroxine Sodium 50 mcg PO QAM 07/09/17 [History] Metformin HCl [Glucophage] 1,000 mg PO BID 07/09/17 [History] Montelukast [Singulair] 10 mg PO DAILY 07/09/17 [History] Multivitamin [One Daily Multivitamin] 1 tab PO QAM 07/09/17 [History] Pioglitazone [Actos] 15 mg PO DAILY 07/09/17 [History] Docusate [Colace] 100 mg PO BID PRN 08/02/17 [History] Mirtazapine 7.5 mg PO HS 10/31/17 [History] Diltiazem [Cardizem] 30 mg PO QID #120 tablet 11/02/17 [Rx] Allergies/Adverse Reactions: 3 Allergy/AdvReac Type Severity Reaction Status Date / Time No Known Allergies Allergy Verified 10/31/17 09:32 Date of admission: 10/31/17 12:33 Primary care physician: Amelia Reddy CNP Consults: 10/31/17 13:05 Consult to Hydraulic Assembler [CONS] Routine Reason for SW Consult: Please assess patient for possible home needs for post -discharge planning. 10/31/17 13:09 Consult to Respiratory Therapy [CONS] Routine Reason for Consult: Please add flutter valve to Xopenex IH tx Call Completed: Yes 10/31/17 14:59 Consult to Hydraulic Assembler [CONS] Routine Reason for Consult: Discharging clinician: Thom Hull Anticipated date of discharge: 11/02/17 - Constitutional Vitals: Temp Pulse Resp BP Pulse Ox 98.0 F 81 16 146/76 96 11/02/17 11:46 11/02/17 11:46 11/02/17 11:46 11/02/17 11:46 11/02/17 11:46 General appearance: Present: cooperative, pleasant, no acute distress, obese Exam: Patient is noncommunicative at baseline - Respiratory Respiratory exam: Present: CTAB. Absent: accessory muscle use, rales, rhonchi, wheezes - Cardiovascular Cardiovascular exam: Present: RRR, +S1, +S2. Absent: diastolic murmur, gallop, rubs, systolic murmur - GI/Abdominal GI/Abdominal exam: Present: normal bowel sounds, soft, no peritoneal signs. Absent: distended, tenderness - Extremities Exam Extremities exam: Present: warm, radial pulses palpable and symmetrical. Absent : calf tenderness, cyanotic, pedal edema - Patient Status Disposition: Home Health Service Condition: Fair Functional capacity at discharge: uses cane/walker Overall status at discharge: patient is progressing back to baseline - Discharge Instructions Instructions: Syncope (DC), Atrial Fibrillation (DC) Follow Up With: Amelia Reddy CNP [Primary Care Provider] - (In 1-2 weeks) - Diet and Activity Activity: increase activity as tolerated Diet: low fat, low cholesterol, low salt diet
--- NOTE | 2017-11-02 12:18 | Physician Discharge Referral ---
Home Health/Hosp Referral Info Transfer to: Home Health Provider in Charge Post Discharge: PCP - Diagnosis (1) Syncope Priority: Primary Status: Acute (2) REENA (acute kidney injury) Priority: Secondary Status: Resolved (3) Dementia Priority: Secondary Status: Chronic (4) HTN (hypertension) Priority: Secondary Status: Chronic (5) HLD (hyperlipidemia) Priority: Secondary Status: Chronic (6) Hypothyroidism Priority: Secondary Status: Chronic (7) DVT prophylaxis Priority: Secondary Status: Acute (8) Diabetes mellitus Priority: Secondary Status: Chronic (9) A-fib Priority: Secondary Status: Chronic (10) Cough Priority: Secondary Status: Resolved - Respiratory Orders Smoking Cessation: Smoking cessation has been advised. For more information, call the [place] Tobacco Quit Line at 4-477-XHNE-NOW. - Diet/Nutrition Diet/Nutrition Orders: Cardiac - Activity Activity Orders: Walker - Services Needed Following services are medically necessary services: Nursing, Home Health Aide, Physical Therapy, Occupational Therapy - Transfer Medications Prescriptions: Diltiazem [Cardizem] 30 mg PO QID #120 tablet Home Medications: Aspirin Enteric Coated [Aspirin EC] 81 mg PO QPM 01/27/15 [History] Acetaminophen [Tylenol Arthritis] 650 mg PO DAILY PRN 07/16/15 [History] Glimepiride [Amaryl] 2 mg PO 0800 10/02/16 [History] Atorvastatin [Lipitor] 10 mg PO HS 07/09/17 [History] Calcium Carbonate/Vitamin D3 [Calcium 600 + Vit D Softgel] 1 tab PO BID [History] Donepezil [Aricept] 5 mg PO HS 07/09/17 [History] Levothyroxine Sodium 50 mcg PO QAM 07/09/17 [History] Metformin HCl [Glucophage] 1,000 mg PO BID 07/09/17 [History] Montelukast [Singulair] 10 mg PO DAILY 07/09/17 [History] Multivitamin [One Daily Multivitamin] 1 tab PO QAM 07/09/17 [History] Pioglitazone [Actos] 15 mg PO DAILY 07/09/17 [History] Docusate [Colace] 100 mg PO BID PRN 08/02/17 [History] Mirtazapine 7.5 mg PO HS 10/31/17 [History] Diltiazem [Cardizem] 30 mg PO QID #120 tablet 11/02/17 [Rx] Allergies/Adverse Reactions: 3 Allergy/AdvReac Type Severity Reaction Status Date / Time No Known Allergies Allergy Verified 10/31/17 09:32 Certification: Further, I certify that my clinical findings support that this patient is homebound (i.e. absences from home require considerable and taxing effort and are for medical reasons or cheondoism services or infrequently or short duration when for other reasons) because: Homebound Reason: Patient requires assistance of a person or device to safely leave home Attestation: My signature below is to certify that this patient is under my care and that I, or nurse practitioner, or a physician's assistant women's tennis coach working with me, has a face-to -face encounter with this patient.
--- NOTE | 2017-11-05 11:11 | Electrocardiograph Report ---
[address] [place] [address] Test Date: 2017-10-31 Pat Name: Anyi Tran Department: 113 Room: 3B23 Gender: F Overage Shortage And Damage Clerk: LYRIC : 1930 Requested By: [id number] Order Number: [id number] Reading MD: Milton Brooks Measurements Intervals [place] Rate: 100 P: [place]: 0 QRS: -65 QRSD: 124 T: 53 QT: 393 QTc: 450 Interpretive Statements SINUS RHYTHM RIGHT BUNDLE BRANCH BLOCK PROLONGED NH INTERVAL LEFT ANTERIOR FASCICULAR BLOCK POSSIBLE ANTERIOR MYOCARDIAL INFARCTION, PROBABLY OLD Electronically Signed On 11-05-2017 11:09:27 EDT by Milton Brooks
--- NOTE | 2017-11-06 14:29 | Electrocardiograph Report ---
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
== END 2017-11-02 13:47 | disposition home health service (06) ==
LOC: 3BNU 09:21 → EMEROOARM 09:21 → SUATTDRO 12:33 → 3BNU 14:05
PROVIDERS: ADMIT Internal Medicine; ATTEND Internal Medicine

== ENCOUNTER 2017-12-22 08:45 | Observation (INO) ==
--- NOTE | 2017-12-22 09:07 | Emergency Department Note ---
Disposition Clinical Impression: Syncope Qualifiers: Syncope type: unspecified Qualified Code(s): R55 - Syncope and collapse Disposition: Admitted As Inpatient Condition: Good General Adult HPI - General Chief complaint: ED Syncope Stated complaint: syncope Time Seen by Provider: 12/22/17 08:52 Source: patient, EMS Limitations: no limitations Nursing Notes Reviewed: Yes Vital Signs Reviewed: Yes - History of Present Illness HPI Narrative: Per patient chart and medication list the patient has a history of atrial fibrillation, diabetes, hypertension, hyperlipidemia, thyroid disease, atrial fibrillation who is presenting today from home brought in by EMS after home health nurse noticed syncopal event. Patient had been unresponsive. Unknown preceding events and as well as unknown down time. The patient reportedly has a history of previous syncopal events with no underlying etiology. It is unknown if the patient had her head. Patient is nonverbal and this is reportedly her baseline. I am having the nurse further call contacts to verify all the above information. It has been reported that she is at her baseline via EMS in the previous home health nurse. At this point the patient is unable to tell me any further information regards to symptoms. She is awake and alert. She does get disgruntled at having us ask her multiple questions and perform her physical exam. On exam there is no evidence of trauma. There is no significant physical exam findings. She will undergo further evaluation for syncope as well as a head CT in regards to an assumed fall with syncope. Pain Scale: 0 - Related Data Home Medications Medication Instructions Recorded Confirmed RX: Aspirin Enteric Coated 81 mg PO QPM 01/27/15 12/22/17 [Aspirin EC] RX: Acetaminophen [Tylenol 1,300 mg PO DAILY PRN 07/16/15 12/22/17 Arthritis] RX: Atorvastatin [Lipitor] 10 mg PO HS 07/09/17 12/22/17 RX: Calcium Carbonate/Vitamin D3 1 tab PO BID 07/09/17 12/22/17 [Calcium 600 + Vit D Softgel] RX: Levothyroxine Sodium 50 mcg PO QAM 07/09/17 12/22/17 RX: Metformin HCl [Glucophage] 1,000 mg PO BID 07/09/17 12/22/17 RX: Montelukast [Singulair] 10 mg PO DAILY 07/09/17 12/22/17 RX: Multivitamin [One Daily 1 tab PO QAM 07/09/17 12/22/17 Multivitamin] RX: Docusate [Colace] 100 mg PO BID PRN 08/02/17 12/22/17 RX: Mirtazapine 7.5 mg PO HS 10/31/17 12/22/17 RX: Donepezil [Aricept] 5 mg PO HS 12/22/17 12/22/17 Previous Rx's Medication Instructions Recorded RX: Diltiazem [Cardizem] 30 mg PO QID #120 tablet 11/02/17 Allergies Allergy/AdvReac Type Severity Reaction Status Date / Time No Known Allergies Allergy Verified 12/22/17 10:33 Limitations: ROS unobtainable due to patients medical condition Cardiovascular: Reports: syncope (Reported) Past Medical History - Past Medical History Medical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: non-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, atrial fibrillation, dementia, diabetes, hyperlipidemia, hypertension, thyroid disease, other Surgical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: orthopedic, other Psychiatric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: depression 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 - Social History Smoking Status: Unknown if ever smoked Smokeless Tobacco Status: No Alcohol use: Reports: none Drug use: Reports: none Physical Exam General: Well appearing, nontoxic, no acute distress Head: Normocephalic Atraumatic Eyes: PERRL, EOMI ENT: Airway patent, no stridor Neck: supple, no meningismus Chest: Lungs clear to auscultation bilateral Cardiac: Regular rate and rhythm Abdomen: soft, nontender, nondistended; no guarding, rebound, or tenderness to percussion Musculoskeletal: Calves symmetric, nontender, no significant lower extremity swelling Skin: No rash, normal skin tone Neuro: Alert and and awake. - General Limitations: no limitations General appearance: alert, in no apparent distress Course - Reevaluation(s) Reevaluation #1: Patient unable to provide further insight into episode. Syncopal episode with presumed loss of consciousness. Labs EKG chest x-ray and CT are unremarkable at this time. Patient will undergo further admission for continued observation, workup and placement. - Consultations Consultation #1: Discussed with hospitalist. Patient accepted for admission. Vital Signs Temperature 97.5 F L 12/22/17 08:51 Pulse Rate 87 12/22/17 08:51 Respiratory Rate 16 12/22/17 08:51 Blood Pressure 136/71 12/22/17 08:51 O2 Sat by Pulse Oximetry 95 12/22/17 08:51 Temperature 98.6 F 12/23/17 15:26 Pulse Rate 70 12/23/17 15:26 Respiratory Rate 17 12/23/17 15:26 Blood Pressure 142/68 12/23/17 15:26 O2 Sat by Pulse Oximetry 96 12/23/17 15:26 Oxygen Delivery Oxygen Delivery Room Air Medical Decision Making - Medical Records Medical records reviewed: Yes I reviewed the patient's medical records. - Lab Data Lab results reviewed: Yes I reviewed the patient's lab results. Result diagrams: 12/22/17 10:13 12/22/17 10:13 Lab Results 12/22/17 12/22/17 12/22/17 Range/Units 09:01 09:40 10:13 WBC (4.3-11.1) K/mcL RBC (3.82-4.97) M/mcL Hgb (11.5-15.4) g/dL Hct (35.3-44.9) % MCV (83.0-100.0) fL MCH (28.0-33.3) pg MCHC (31.6-35.5) g/dL RDW (11.5-14.5) % Plt Count (140-400) K/mcL MPV (9.4-12.4) fL Immature Gran % (0-4) % Seg Neutrophils % % Lymphocytes % % Monocytes % % Eosinophils % % Basophils % % Neutrophils # (1.6-8.9) K/mcL Lymphocytes # (0.6-4.6) K/mcL Monocytes # (0.0-1.3) K/mcL Eosinophils # (0.0-0.6) K/mcL Basophils # (0.0-0.2) K/mcL Sodium 141 (136-145) mEq/L Potassium 4.3 (3.5-5.1) mEq/L Chloride 105 (98-107) mEq/L Carbon Dioxide 26 (23-29) mEq/L BUN 19 (8-23) mg/dL Creatinine 0.99 (0.60-1.20) mg/dL Est GFR ( Amer) > 60 (> 60) Est GFR (Non-Af Amer) 53 L (> 60) BUN/Creatinine Ratio 19 (6-26) Glucose 194 H (70-105) mg/dL POC Glucose 195 H (70-99) mg/dL Calculated Osmolality 300 (280-300) Calcium 9.2 (8.6-10.3) mg/dL Total Bilirubin 0.4 (0.3-1.0) mg/dL AST 21 (13-39) Units/L ALT 19 (7-52) Units/L Alkaline Phosphatase 65 (34-104) Units/L Troponin I < 0.03 (< 0.04) ng/mL Serum Total Protein 6.4 (6.4-8.9) g/dL Albumin 3.6 (3.5-5.7) g/dL Globulin 2.8 (2.4-3.5) g/dL Albumin/Globulin Ratio 1.3 (1.1-2.2) TSH 13.407 H (0.340-5.600) mcIU/mL Specimen Rejected Clotted 12/22/17 Range/Units 10:13 WBC 8.0 (4.3-11.1) K/mcL RBC 5.03 H (3.82-4.97) M/mcL Hgb 14.5 (11.5-15.4) g/dL Hct 45.3 H (35.3-44.9) % MCV 90.1 (83.0-100.0) fL MCH 28.8 (28.0-33.3) pg MCHC 32.0 (31.6-35.5) g/dL RDW 14.0 (11.5-14.5) % Plt Count 192 (140-400) K/mcL MPV 11.1 (9.4-12.4) fL Immature Gran % 0.4 (0-4) % Seg Neutrophils % 81.0 % Lymphocytes % 12.5 % Monocytes % 4.9 % Eosinophils % 0.8 % Basophils % 0.4 % Neutrophils # 6.5 (1.6-8.9) K/mcL Lymphocytes # 1.0 (0.6-4.6) K/mcL Monocytes # 0.4 (0.0-1.3) K/mcL Eosinophils # 0.1 (0.0-0.6) K/mcL Basophils # 0.0 (0.0-0.2) K/mcL Sodium (136-145) mEq/L Potassium (3.5-5.1) mEq/L Chloride (98-107) mEq/L Carbon Dioxide (23-29) mEq/L BUN (8-23) mg/dL Creatinine (0.60-1.20) mg/dL Est GFR ( Amer) (> 60) Est GFR (Non-Af Amer) (> 60) BUN/Creatinine Ratio (6-26) Glucose (70-105) mg/dL POC Glucose (70-99) mg/dL Calculated Osmolality (280-300) Calcium (8.6-10.3) mg/dL Total Bilirubin (0.3-1.0) mg/dL AST (13-39) Units/L ALT (7-52) Units/L Alkaline Phosphatase (34-104) Units/L Troponin I (< 0.04) ng/mL Serum Total Protein (6.4-8.9) g/dL Albumin (3.5-5.7) g/dL Globulin (2.4-3.5) g/dL Albumin/Globulin Ratio (1.1-2.2) TSH (0.340-5.600) mcIU/mL Specimen Rejected - Radiology Data Radiology results reviewed: Yes I reviewed the patient's radiology results. - EKG Data EKG #1 EKG attestation: Yes I reviewed and interpreted this EKG. EKG results narrative: EKG shows sinus rhythm with heart rate of 92. CT Interval 216. QRS 122. QTC 492. Patient has no significant ST elevations or depressions. Patient's EKG is improved from previous A flutter with a rate of 164. Previous EKG of 11/01/2017.
[2017-12-22 10:22] LABS: Basophils % 0.4 %; Eosinophils # 0.1 K/mcL (0.0-0.6); Eosinophils % 0.8 %; Hematocrit 45.3 % (35.3-44.9); Hemoglobin 14.5 g/dL (11.5-15.4); Immature Granulocytes % 0.4 % (0-4); Lymphocytes % 12.5 %; Mean Corpuscular Hemoglobin 28.8 pg (28.0-33.3); Mean Corpuscular Volume 90.1 fL (83.0-100.0); Mean Platelet Volume 11.1 fL (9.4-12.4); Monocytes # 0.4 K/mcL (0.0-1.3); Monocytes % 4.9 %; Neutrophils # 6.5 K/mcL (1.6-8.9); Platelet Count 192 K/mcL (140-400); Red Blood Count 5.03 M/mcL (3.82-4.97)
[2017-12-22 10:42] LABS: Alanine Aminotransferase 19 Units/L (7-52); Albumin 3.6 g/dL (3.5-5.7); Albumin/Globulin Ratio 1.3 (1.1-2.2); Alkaline Phosphatase 65 Units/L (34-104); Aspartate Amino Transferase 21 Units/L (13-39); BUN/Creatinine Ratio 19 (6-26); Bilirubin,Total 0.4 mg/dL (0.3-1.0); Blood Urea Nitrogen 19 mg/dL (8-23); Calcium 9.2 mg/dL (8.6-10.3); Carbon Dioxide 26 mEq/L (23-29); Chloride 105 mEq/L (98-107); Globulin 2.8 g/dL (2.4-3.5); Glucose 194 mg/dL (70-105); Osmolality,Calculated 300 (280-300); Potassium 4.3 mEq/L (3.5-5.1); Sodium 141 mEq/L (136-145); Total Protein 6.4 g/dL (6.4-8.9); Troponin I < 0.03 ng/mL (< 0.04); eGFR For Non-African Americans 53 (> 60)
[2017-12-22 10:55] LABS: Thyroid Stimulating Hormone 13.407 mcIU/mL (0.340-5.600)
[2017-12-22] MEDS ORDERED: Acetaminophen 325 MG TABLET PO PRN ×2 (13:37→13:50)
[2017-12-22] MEDS ORDERED: Naloxone 0.4 MG/ML INJ IVP PRN (13:43)
[2017-12-22] MEDS ORDERED: traMADol 50 MG TABLET PO PRN (13:50)
[2017-12-22] MEDS ORDERED: D5% in Water 1,000 ML IVC PRN (14:16)
[2017-12-22] MEDS ORDERED: *HR* Dextrose 50 % in Water (Syg) 50 ML SYRINGE IVP PRN (14:16)
[2017-12-22] MEDS ORDERED: Dextrose Gel 15 GM/37.5 ML TUBE PO PRN ×2 (14:16)
--- NOTE | 2017-12-22 14:27 | Internal Med History&Physical ---
Date of Encounter: 12/22/17 Time of Encounter: 13:15 Internal Medicine - H&P: HPI Chief complaint: Syncope Admitted From: Emergency Dept Plans for Post Hospital Care: Home History of present illness: Ms. Tran is a 87 year old female w/PMH of atrial fibrillation, dementia, diabetes, HLD, HTN, seasonal allergies, and thyroid disease presents from the ED w/CC of syncope today. Pt. is able to shake her head to yes or no questions but is essentially non-verbal. Pt. verbalizes understanding and healy not appear to be altered. Pts. daughter reports that the pt. became syncopal today. Pt. denies hitting head or head pain. Pts. daughter reports that pt. became syncopal at PCPs office in early September. States that the pts. left side begins to shake and then pt. experiences weakness of the left side afterwards. No alleviating or aggravating factors. Daughter reports BG as 130 when questioned about possible hypoglycemia today. Daughter did state that the pt. did not eat last night. Pt. denies CP, SOB, headache, recent illness, nausea, vomiting, changes in vision, unusual bleeding, cough, chest congestion, abdominal pain, diarrhea, constipation, dizziness, lightheadedness, numbness, tingling, pre-syncope, or syncope. Past Med Surg Social Fam HX - Past Medical History Source: patient, old records reviewed, obtained from family Medical history: atrial fibrillation, CVA, dementia, diabetes, hyperlipidemia, hypertension, thyroid disease, other Additional medical history: HX OF RECURRENT UTI. CHR. CONSTIPATION. INH. ALLERGIES. Psychiatric history: depression - Past Surgical History Surgical History: orthopedic, other Additional surgical history: rotator cuff sx. - Social History Smoking Status: Never smoker Smokeless Tobacco Status: No Alcohol use: none Drug use: none Current living situation: Home, With Family Activity Level: Uses cane/walker Recent Out of Country Travel Within the Last 8 Weeks: No Exposure or Possible Exposure to Illness During Travel: No - Family History Mother Race: Family Member Ethnicity: Non- Living Status: Age at : 72 Cause of : Bowel ruptured Hx Family GI Disorders: Yes (Colon problems) Sister Race: Family Member Ethnicity: Non- Living Status: Age at : 79 Cause of : Alzheimer's disease Hx Family Neurologic Disorders: Yes (Alzheimer's disease) Father Race: Family Member Ethnicity: Non- Living Status: Age at : 65 Cause of : NC Hx Family Cardiac Disorders: Yes (NC, CAD) Hx Family Endocrine Disorder: Yes (DM) Hx Family Musculoskeletal Disorders: Yes (Arthritis) Internal Medicine - H&P: Meds Aspirin Enteric Coated [Aspirin EC] 81 mg PO QPM 01/27/15 [History] Acetaminophen [Tylenol Arthritis] 1,300 mg PO DAILY PRN 07/16/15 [History] Glimepiride [Amaryl] 2 mg PO 0800 10/02/16 [History] Atorvastatin [Lipitor] 10 mg PO HS 07/09/17 [History] Calcium Carbonate/Vitamin D3 [Calcium 600 + Vit D Softgel] 1 tab PO BID 07/09/17 [History] Levothyroxine Sodium 50 mcg PO QAM 07/09/17 [History] Metformin HCl [Glucophage] 1,000 mg PO BID 07/09/17 [History] Montelukast [Singulair] 10 mg PO DAILY 07/09/17 [History] Multivitamin [One Daily Multivitamin] 1 tab PO QAM 07/09/17 [History] Pioglitazone [Actos] 15 mg PO DAILY 07/09/17 [History] Docusate [Colace] 100 mg PO BID PRN 08/02/17 [History] Mirtazapine 7.5 mg PO HS 10/31/17 [History] Diltiazem [Cardizem] 30 mg PO QID #120 tablet 11/02/17 [Rx] Donepezil [Aricept] 5 mg PO HS 12/22/17 [History] Allergy/AdvReac Type Severity Reaction Status Date / Time No Known Allergies Allergy Verified 12/22/17 10:33 All Systems PM: A 10-system review of systems was performed and is negative for pertinent findings except as documented above in the HPI. - Constitutional Constitutional: as per HPI, fatigue, weakness, no chills, no fever(s), no night sweats - EENT Eyes: no change in vision, no discharge, no pain, no photophobia Ears: no ear discharge, no ear pain, no tinnitus Nose, mouth and throat: no dysphagia, no nasal discharge, no neck pain, no sore throat - Breasts Breasts: as per HPI - Cardiovascular Cardiovascular ROS IM: as per HPI, irregular heart rhythm (Hx of atrial fibrillation), syncope, no chest pain, no diaphoresis, no dyspnea, no lightheadedness, no palpitations - Respiratory Respiratory: as per HPI, no cough, no dyspnea, no wheezing, no excessive phlegm production - Gastrointestinal Gastrointestinal: no abdominal pain, no diarrhea, no hematemesis, no hematochezia, no melena, no nausea, no vomiting - Genitourinary Genitourinary: no change in urinary stream, no dysuria, no flank pain, no hematuria Menstruation: as per HPI - Musculoskeletal Musculoskeletal ROS IM: as per HPI, back pain, no numbness, no tingling - Integumentary Integumentary IM: no rash, no unusual bruising - Neurological Neurological ROS: as per HPI, weakness, no confusion, no convulsions, no focal weakness, no numbness, no tingling, no tremor(s) - Psychiatric Psychiatric: as per HPI - Endocrine Endocrine IM: as per HPI - Hematologic/Lymphatic Hematologic/Lymphatic: no easy bruising - Allergic/Immunologic Allergic/Immunologic: as per HPI - Constitutional Vitals: Temp Pulse Resp BP Pulse Ox 97.5 F L 82 16 156/86 99 12/22/17 08:51 12/22/17 10:06 12/22/17 13:46 12/22/17 13:46 12/22/17 10:06 General appearance: Present: cooperative, A&O X 3, pleasant, no acute distress, answers questions appropriately Exam: Patient examined at bedside in ED. Pt. is non-verbal but is alert and able to answer yes and no questions by shaking her head. Pt. does not recall syncopal episode but denies any head pain r/t striking her head. No trauma present. Pt. denies CP, SOB, headache today. Pts. daughter states that BG after event was 139. Pts. daughter reports that pts. left side shakes during syncopal episodes then experienced left-sided weakness afterwards. Pts. daughter reports that pt. has not been eating or drinking for the past several days. Pt. denies any other sx or complaints at this time. VS: 97.5F temp, HR 82, RR 16, BP 156/86, SPO2 99% on room air. - Head Head exam: Present: atraumatic, normocephalic - Eye Eye exam: Present: PERRL, conjuntiva pink, sclera anicteric Pupils: Present: PERRL - ENT ENT exam: Present: normal exam - Neck Neck exam general surgery: Present: supple, trachea midline. Absent: lymphadenopathy - Respiratory Respiratory exam: Present: CTAB. Absent: accessory muscle use, rales, rhonchi, wheezes - Cardiovascular Cardiovascular exam: Present: RRR, +S1, +S2. Absent: diastolic murmur, gallop, rubs, systolic murmur - GI/Abdominal GI/Abdominal exam: Present: normal bowel sounds, soft, no peritoneal signs. Absent: distended, tenderness - Rectal Rectal exam: Present: deferred - Additional comments: exam deferred. - Extremities Exam Extremities exam: Present: warm, radial pulses palpable and symmetrical. Absent: calf tenderness, cyanotic, pedal edema - Back Exam Back exam: Present: normal inspection - Neurological Exam Neurological exam: Present: alert, CN II-XII intact, oriented X3, no focal deficits. Absent: pronater drift, facial droop, speech deficit - Psychiatric Psychiatric exam: Present: flat affect - Skin Skin exam: Present: dry, intact Internal Med - H&P Results - Labs CBC & Chem 7: 12/22/17 10:13 12/22/17 10:13 Labs: Short CBC 12/22/17 Range/Units 10:13 WBC 8.0 (4.3-11.1) K/mcL Hgb 14.5 (11.5-15.4) g/dL Hct 45.3 H (35.3-44.9) % Plt Count 192 (140-400) K/mcL Neutrophils # 6.5 (1.6-8.9) K/mcL BMP 12/22/17 10:13 Sodium 141 Potassium 4.3 Chloride 105 Carbon Dioxide 26 BUN 19 Creatinine 0.99 Glucose 194 H Calcium 9.2 Cardiac Enzymes 12/22/17 Range/Units 10:13 Troponin I < 0.03 (< 0.04) ng/mL Liver Function 12/22/17 Range/Units 10:13 Total Bilirubin 0.4 (0.3-1.0) mg/dL AST 21 (13-39) Units/L ALT 19 (7-52) Units/L Alkaline Phosphatase 65 (34-104) Units/L Albumin 3.6 (3.5-5.7) g/dL - EKG Data EKG shows normal: sinus rhythm - EKG Data Prior EKG available for review: yes EKG comments: 12/22/17 14:36 EKG dated 11/01/17 shows atrial flutter/tachycardia with rapid ventricular response, low QRS voltage in precordial leads, incomplete RBBB, left anterior fascicular block, anteroseptal myocardial infarction, probably old. ST depression, probably rate related.. EKG dated 12/22/17 shows sinus rhythm with borderline prolonged LA interval, RBBB and LAFB, probable left ventricular hypertrophy, baseline wander and leads V4 and V5. Partial missing leads and V4. - Impressions ITS Impressions Chest X-Ray 12/22/17 08:53 IMPRESSION: No acute cardiopulmonary disease. D/ / Siddhartha Wei MD / Siddhartha Wei MD Interpreting Provider: Siddhartha Wei MD Head CT 12/22/17 09:04 IMPRESSION: No acute intracranial abnormality. Stable appearance of sequela from remote right occipital stroke. D/ / Buddy Ayala / Buddy Ayala Interpreting Provider: Buddy Ayala - Diagnostic Studies Chest x-ray Additional comments: Impressions Chest X-Ray 12/22/17 08:53 IMPRESSION: No acute cardiopulmonary disease. D/ / Siddhartha Wei MD / Siddhartha Wei MD Interpreting Provider: Siddhartha Wei MD CT scan - head Additional comments: Impressions Head CT 12/22/17 09:04 IMPRESSION: No acute intracranial abnormality. Stable appearance of sequela from remote right occipital stroke. D/ / Buddy Ayala / Buddy Ayala Interpreting Provider: Buddy Ayala - Assessment and plan (1) Syncope Current Visit: Yes Status: Acute Assessment and plan: Acute on chronic syncope versus seizures. Pts. daughter reports that pt. became syncopal at PCPs office in early September. States that the pts. left side begins to shake and then pt. experiences weakness of the left side afterwards. No alleviating or aggravating factors. Daughter reports BG as 130 when questioned about possible hypoglycemia today. Daughter did state that the pt. did not eat last night. Pt. denies hitting head or head pain today. CT of the head today shows no acute intracranial abnormality and stable appearance of sequela from remote right occipital stroke. MRI of the head/brain ordered to assess for new infarct/ischemia. NIHSS modified. Neuro checks Q2HR. Padding to bedrails. Bilateral carotid Dopplers on 10/31/17 showed minimal plaque throughout. Shannan nuous cardiac telemetry. Supplemental O2 /titration and SpO2 monitoring. U/A w/ reflex micro and culture ordered d/t hx of chronic UTIs. NPO until dysphagia screen passed. When passed, will begin w/clear diet and advance as tolerated w/aspiration precautions. Falls/safety precautions and up with assist. Neurology consult ordered and discussed w/Dr. Boss w/recommendation for EEG and I appreciate the consult and recommendations as always. Will allow for permissive HTN until MRI resulted. ASA. Pt. is high risk for further morbidity and complications based on syncope today of unknown etiology, possible seizures versus CVA, hx of previous CVA, hx of paroxysmal Afib not on anticoagulation; and risk factors of DM, HTN, HLD. Observation. Qualifiers: Qualified Code(s): R55 - Syncope and collapse (2) Dehydration Current Visit: Yes Status: Acute Assessment and plan: Acute mild dehydration stemming from reduced oral intake over the past several days. 0.9 NS IV fluids @ 75 mLs/HR. Monitor I&O and daily weight. (3) REENA (acute kidney injury) Current Visit: Yes Status: Acute Assessment and plan: Acute kidney injury. Pt. has hx of reduced renal function. GFR >60 on 11/01/17. 53 today, likely from reduced intake and fluids. Creatinine 0.99. 0.9 NS IV fluids @ 75 mLs/HR. Monitor I&O and f/u labs. (4) Failure to thrive in adult Current Visit: Yes Status: Chronic Assessment and plan: Chronic failure to thrive in adult. Pts. daughter states that pt. has had reduced appetite over the past several days w/less oral intake. Nutrition consult for PO supplementation w/vanilla Glucerna. 0.9 NS IV fluids @ 75 mLs/HR. Dysphagia screen d/t current syncope versus seizure. Will start clear diet and advance as tolerated if dysphagia screen passed. (5) A-fib Current Visit: Yes Status: Chronic Assessment and plan: Hx of chronic paroxysmal atrial fibrillation. Currently SR today on EKG. Continuous cardiac telemetry. Continue pts. Cardizem PO. Qualifiers: Qualified Code(s): I48.0 - Paroxysmal atrial fibrillation (6) Diabetes Current Visit: Yes Status: Chronic Assessment and plan: Hx of chronic diabetes controlled w/oral medications. Will hold pts. Amaryl, Glucophage, and Actos and administer low-dose correction sliding scale insulin with hypoglycemic protocol. BG checks before meals at bedtime. A1c in a.m. labs. Qualifiers: Qualified Code(s): E11.9 - Type 2 diabetes mellitus without complications (7) HLD (hyperlipidemia) Current Visit: Yes Status: Chronic Assessment and plan: Hx of chronic HLD. Lipid panel in a.m. labs. Continue pts. Lipitor. Qualifiers: Qualified Code(s): E78.00 - Pure hypercholesterolemia, unspecified; E78.0 - Pure hypercholesterolemia (8) HTN (hypertension) Current Visit: Yes Status: Chronic Assessment and plan: Hx of chronic HTN. Monitor pt. and VS. Continue pts. Cardizem. Qualifiers: Qualified Code(s): I10 - Essential (primary) hypertension (9) Hypothyroidism Current Visit: Yes Status: Chronic Assessment and plan: Hx of chronic hypothyroidism. TSH 13.407 on admission. Pts. daughter states that the pt. has not had her Synthroid in 2 days d/t her Pharmacy running out. Will give dose today and re-check TSH in f/u labs. Continue pts. Synthroid. Qualifiers: Qualified Code(s): E03.9 - Hypothyroidism, unspecified (10) Depression Current Visit: Yes Status: Chronic Assessment and plan: Hx of chronic depression. Continue patient's mirtazapine. Qualifiers: Qualified Code(s): F32.89 - Other specified depressive episodes (11) DVT prophylaxis Current Visit: Yes Status: Acute Assessment and plan: Heparin 5,000 units SQ Q8HR for DVT prophylaxis. Monitor pt. for signs of bleeding. - Time Spent With Patient Total time spent is greater than 50% in coordination of care (as documented) at patient's floor/unit and/or counseling patient: Greater than 35 minutes
--- NOTE | 2017-12-22 14:56 | Neurology - Consult Note ---
<Jerome Begum - Last Filed: 12/22/17 15:14> Date of Encounter: 12/22/17 Time of Encounter: 14:47 Assessment and Plan (1) Syncope Current Visit: Yes Status: Acute syncope etiology: cardiac vs neruo, uncelar at this point ct head negative for acute changes BP, HR stable blood glucose 194 TSH 13.407 (increased from previous admission) patient was observed to have left side shaking during syncopal event. EEG, MRI ordered by primary team patient just had normal carotid dopplers last month, does not need repeat continue aspirin, atorvastatin. Qualifiers: Syncope type: unspecified Qualified Code(s): R55 - Syncope and collapse (2) Left-sided weakness Current Visit: Yes Status: Acute neuro exam shows left sided weakness in both upper and lower extremities when compared to right. as per family this is not new but was present during last admission obtaining MRI (3) Hypothyroidism Current Visit: Yes Status: Chronic patient is hypothyroid with elevated tsh this was also seen during last admission would recommend increasing to 75mcg daily Qualifiers: Hypothyroidism type: acquired Qualified Code(s): E03.9 - Hypothyroidism, unspecified (4) A-fib Current Visit: Yes Status: Chronic currently in sinus rhythm not on anticoagulation 2nd to hx of dementia and falls. Qualifiers: Atrial fibrillation type: paroxysmal Qualified Code(s): I48.0 - Paroxysmal atrial fibrillation (5) Dementia Current Visit: Yes Status: Acute hx of dementia according to family onset was 11 years ago patient alert but not oriented to place, time, situation, self patient is calm, pleasant continue donepizil. Qualifiers: Dementia type: unspecified type Dementia behavioral disturbance: without behavioral disturbance Qualified Code(s): F03.90 - Unspecified dementia without behavioral disturbance History of Present Illness Chief complaint: syncope HPI: Ms. Tran is a 87 year old female hx of dementia presented with cc of syncope that occured in the morning. Patient is currently alert and oriented 0 as per daughter but is able to communicate when asked questions. Daughter is present during my evaluation. Patient lives with her daughter and was with her home health nurse in the kitchen sitting when she was seen to lean forward at the table and became unresponsive. The nurse was able to awaken the patient with verbal commands and then she went unresponisve again and started having "shaking" of her left upper and lower extremities last lasted for 1-2 min. Patient was confused as per family after the episode. Patient did not hit her head. Patient did not have tongue biting, loss of bowel or bladder function. At baseline she uses a walker for ambulation. She is able to tell me that the president is Fuentes. She is following all commands. This same exact presentation was seen in 10/31/2017 and patient was admitted at [facility] at that time. During that visit patient underwent testing for stroke. 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 Carotid duplex showed bilateral carotid arteries having minimal plaque. During this admission head CT scan was negative for acute changes. During previous admission in October patient was thought to have convulsive syncope. Past Med Surg Social Fam HX - Past Medical History Medical history: atrial fibrillation, CVA, dementia, diabetes, hyperlipidemia, hypertension, thyroid disease, other Additional medical history: HX OF RECURRENT UTI. CHR. CONSTIPATION. INH. ALLERGIES. Psychiatric history: depression - Past Surgical History Surgical History: orthopedic, other Additional surgical history: rotator cuff sx. - Social History Smoking Status: Never smoker Smokeless Tobacco Status: No Alcohol use: none Drug use: none - Family History Mother Race: Family Member Ethnicity: Non- Living Status: Age at : 72 Cause of : Bowel ruptured Hx Family GI Disorders: Yes (Colon problems) Sister Race: Family Member Ethnicity: Non- Living Status: Age at : 79 Cause of : Alzheimer's disease Hx Family Neurologic Disorders: Yes (Alzheimer's disease) Father Race: Family Member Ethnicity: Non- Living Status: Age at : 65 Cause of : PR Hx Family Cardiac Disorders: Yes (PR, CAD) Hx Family Respiratory Disorders: No Hx Family Cancer: No Hx Family GI Disorders: No Hx Family Endocrine Disorder: Yes (DM) Hx Family Musculoskeletal Disorders: Yes (Arthritis) Hx Family Neuromuscular Disorders: No Hx Family Neurologic Disorders: No Hx Family HEENT Disorders: No Hx Family Autoimmune Disorders: No Medications and Allergies Aspirin Enteric Coated [Aspirin EC] 81 mg PO QPM 01/27/15 [History] Acetaminophen [Tylenol Arthritis] 1,300 mg PO DAILY PRN 07/16/15 [History] Glimepiride [Amaryl] 2 mg PO 0800 10/02/16 [History] Atorvastatin [Lipitor] 10 mg PO HS 07/09/17 [History] Calcium Carbonate/Vitamin D3 [Calcium 600 + Vit D Softgel] 1 tab PO BID 07/09/17 [History] Levothyroxine Sodium 50 mcg PO QAM 07/09/17 [History] Metformin HCl [Glucophage] 1,000 mg PO BID 07/09/17 [History] Montelukast [Singulair] 10 mg PO DAILY 07/09/17 [History] Multivitamin [One Daily Multivitamin] 1 tab PO QAM 07/09/17 [History] Pioglitazone [Actos] 15 mg PO DAILY 07/09/17 [History] Docusate [Colace] 100 mg PO BID PRN 08/02/17 [History] Mirtazapine 7.5 mg PO HS 10/31/17 [History] Diltiazem [Cardizem] 30 mg PO QID #120 tablet 11/02/17 [Rx] Donepezil [Aricept] 5 mg PO HS 12/22/17 [History] Allergy/AdvReac Type Severity Reaction Status Date / Time No Known Allergies Allergy Verified 12/22/17 10:33 ROS unobtainable: due to mental status All Systems: The remainder of the systems were reviewed and are negative Review of Systems: Apical to obtain proper arthrosis patient is alert and oriented 0. Physical Examination - Vital Signs Vital Signs: Initial Vital Signs Temp Pulse Resp BP Pulse Ox 97.5 F L 87 16 136/71 95 12/22/17 08:51 12/22/17 08:51 12/22/17 08:51 12/22/17 08:51 12/22/17 08:51 - Exam Exam: General: pleasant, without distress HEENT: Head atraumatic, normocephalic, EOMI, PERRL, absent ear discharge or trauma, Moist Mucous Membranes, uvula midline Neck: nontender to palpation, absent lymphadenopathy, Cardiovascualr: Regular rate and rhythm with no murmur, absent gallops or rubs, absent pedal edema, radial pulses 2 out of 4 Lungs: Clear to auscultation bilaterally, not in respiratory distress Abdomen: Soft nontender, nondistended positive bowel sounds, absent hepatomegaly Skin: warm and dry, absent rash, absent open wounds and nodules MSK: absent clubbing, cyanosis, joints without swelling Psych: Patient is alert but not oriented to self, place, time, situation - Constitutional General appearance: comfortable - Neurologic Sensorimotor examination: intact Motor examination - right side: 4/5: triceps, wrist flexion, wrist extension, 5/5: deltoids, biceps, home demonstrator, hip flexors, tibialis Anterior, quadriceps, toe e xtension (EHL), plantarflexion Motor examination - left side: 4/5: deltoids, biceps, triceps, wrist flexion, wrist extension, hip flexors, quadriceps, tibialis Anterior, toe extension (EHL), plantarflexion, 5/5: home demonstrator Detailed sensory examination: other (Unable to do that as patient does not cooperate with exam.) Reflex and gait examination: other (Gait not tested as patient usually relates with walker.) Reflexes: Biceps: 2+, Triceps: 2+, Brachioradialis: 2+, Patella: 2+, Achilles: 2+ Mental Status Examination: awake, alert, follows commands appropriately, inattentive, impaired memory, impaired cognition Cranial nerve examination: PERRL, EOMI, visual parson intact, corneal reflexes brisk symmetrically, mastication intact, no facial asymmetry is present, no dysarthria, hearing is intact symmetrically, soft palate elevates bilaterally upon phonation, flexes SCM and trapezius muscles symmetrically with full power, tongue protrudes midline, no atrophy or facial fasiculations present Cerebellar examination: no dysmetria, no truncal ataxia, no difficulty with rapid alternating movements Results - Laboratory Findings CBC and BMP: 12/22/17 10:13 12/22/17 10:13 Abnormal lab findings: Abnormal lab results RBC 5.03 M/mcL (3.82-4.97) H 12/22/17 10:13 Hct 45.3 % (35.3-44.9) H 12/22/17 10:13 Est GFR (Non-Af Amer) 53 (> 60) L 12/22/17 10:13 Glucose 194 mg/dL (70-105) H 12/22/17 10:13 TSH 13.407 mcIU/mL (0.340-5.600) H 12/22/17 10:13 Consult Discharge Plan - Plan Referrals: Amelia Reddy CNP [Primary Care Provider] - <Efrain Boss - Last Filed: 12/22/17 16:06> Time of Encounter: 15:59 Assessment and Plan (1) Syncope Current Visit: Yes Status: Acute I agree that under the circumstances were more than likely dealing with cardiogenic syncope versus syncope with seizure. It seems as though the episode onset quite suddenly without are or prodrome. This more frequently goes along with a cardiogenic etiology. It is not uncommon for convulsive activity to occur after a syncopal episode. It is possible that she may be developing epilepsy due to her dementia. The old right occipital lobe infarct may also be acting as an irritable focus. I will interpret the EEG and comment further. For now my prime suspicion is cardiogenic syncope. For now I would simply rec ommend continuing aspirin and atorvastatin. Further recommendations will be made after the EEG is been completed. Qualifiers: Syncope type: unspecified Qualified Code(s): R55 - Syncope and collapse History of Present Illness HPI: The chart was reviewed, the patient was seen and examined independently. Case was discussed with Dr. Begum. I agree with his assessment as stated above. Patient is now undergoing EEG testing. However she is alert, knows that she is in the hospital. She is pleasantly demented and not able to give a precise history. She does participate willingly for the EEG study. CT scan of the brain completed at the time of admission reveals global cortical as well as cere bellar atrophy. There is also an old infarct in the right occipital lobe region. MRI scan of the brain is yet pending. ROS unobtainable: due to mental status All Systems: The remainder of the systems were reviewed and are negative Physical Examination - Vital Signs Vital Signs: Initial Vital Signs Temp Pulse Resp BP Pulse Ox 97.5 F L 87 16 136/71 95 12/22/17 08:51 12/22/17 08:51 12/22/17 08:51 12/22/17 08:51 12/22/17 08:51 - Neurologic Mental Status Examination: oriented to person, oriented to place Results - Laboratory Findings CBC and BMP: 12/22/17 10:13 12/22/17 10:13 Abnormal lab findings: Abnormal lab results RBC 5.03 M/mcL (3.82-4.97) H 12/22/17 10:13 Hct 45.3 % (35.3-44.9) H 12/22/17 10:13 Est GFR (Non-Af Amer) 53 (> 60) L 12/22/17 10:13 Glucose 194 mg/dL (70-105) H 12/22/17 10:13 POC Glucose 195 mg/dL (70-99) H 12/22/17 09:01 TSH 13.407 mcIU/mL (0.340-5.600) H 12/22/17 10:13
[2017-12-22] MEDS: Insulin LISPRO 300 UNITS/3 ML VIAL SQ SCH (15:43)
[2017-12-22] MEDS: 0.9 % Sodium Chloride 1,000 ML IVC SCH (16:50)
[2017-12-22] MEDS ORDERED: Aspirin Enteric Coated 81 MG Tablet PO SCH (18:00)
[2017-12-22] MEDS ORDERED: Mirtazapine 15 MG TABLET PO SCH (21:00)
[2017-12-22] MEDS ORDERED: Insulin LISPRO 300 UNITS/3 ML VIAL SQ SCH (21:00)
[2017-12-22] MEDS: *HR* Heparin 5,000 UNIT/ML VIAL SQ SCH (21:15)
[2017-12-23] MEDS: *HR* Heparin 5,000 UNIT/ML VIAL SQ SCH ×2 (06:06→14:31)
[2017-12-23 06:37] LABS: Estimated Average Glucose 148 mg/dl; Hemoglobin A1C 6.8 %
--- NOTE | 2017-12-23 07:12 | EEG/EMG/Oth Biometrics Report ---
EEG Procedure Report Date of procedure: 12/23/17 EEG Procedure: Routine EEG Procedure Note: This is a report of a 21 channel bipolar and referential montage EEG. The posterior dominant rhythm consisted of low-voltage theta frequency ranging from 6-7 Hz. This rhythm is not reactive to eye opening. Hyperventilation is not performed during the recording. There is no sleep architecture identified during the study. Photic stimulations performed and does not produce a driving response. The EKG rhythm strip reveals a left bundle branch block, low-voltage at a rate of 90 bpm. Impressions: This EEG recording is mildly abnormal consistent with a mild generalized encephalopathy. There is no evidence of epileptiform activity identified during the study. Comment: Etiologies to explain this recording might include toxic, metabolic, postictal, or degenerative. The absence of epileptiform activity during the study does not preclude a diagnosis of seizure or epilepsy. If the clinical suspicion for seizure activity is high, serial EEGs or perhaps a prolonged recording may increase the yield. Please correlate clinically.
--- NOTE | 2017-12-23 07:33 | Neurology Progress Note ---
<Jerome Begum - Last Filed: 12/23/17 11:21> Date of Encounter: 12/23/17 Time of Encounter: 11:11 Assessment and Plan (1) Syncope Current Visit: Yes Status: Acute Brain MRI negative for acute pathology EEG negative for epileptoform activity but shows signs of mild generalizedencephalopathy. kathleen her syncope is cardiogenic. Would not start patient on antiepileptics patient may benefit from loop recorder to monitor for arrythmia Qualifiers: Syncope type: unspecified Qualified Code(s): R55 - Syncope and collapse (2) Hypothyroidism Current Visit: Yes Status: Chronic increased levothyroxine dose to 75 g. Qualifiers: Hypothyroidism type: acquired Qualified Code(s): E03.9 - Hypothyroidism, unspecified (3) A-fib Current Visit: Yes Status: Chronic currently in sinus rhythm not on anticoagulation 2nd to hx of dementia and falls. Qualifiers: Atrial fibrillation type: paroxysmal Qualified Code(s): I48.0 - Paroxysmal atrial fibrillation Subjective Principal diagnosis: syncope, cardiogenic Interval history: No acute events overnight. Patient was sitting in chair doing crossword puzzles. Calm, very pleasant. Alert to self and place. Objective - Constitutional Vitals: Temp Pulse Resp BP Pulse Ox 97.8 F 86 17 174/77 96 12/23/17 03:03 12/23/17 03:03 12/23/17 03:03 12/23/17 04:05 12/23/17 03:03 - Neurological Exam Sensorimotor examination: Present: intact Motor examination - right side: 5/5: deltoids, biceps, triceps, wrist flexion, wrist extension, light adjuster, hip flexors, tibialis Anterior, quadriceps, toe extension (EHL), plantarflexion Motor examination - left side: 4/5: deltoids, biceps, triceps, wrist flexion, wrist extension, hip flexors, quadriceps, tibialis Anterior, toe extension (EHL), plantarflexion, 5/5: light adjuster Sensation intact: Present: other (Unable to do that as patient does not cooperate with exam.) Reflex and gait examination: other (Gait not tested as patient usually relates with walker.) Mental Status Examination: Present: oriented to person, oriented to place Cranial nerve examination: Present: PERRL, EOMI, visual parson intact, corneal reflexes brisk symmetrically, mastication intact, no facial asymmetry is present, no dysarthria, hearing is intact symmetrically, soft palate elevates bilaterally upon phonation, flexes SCM and trapezius muscles symmetrically with full power, tongue protrudes midline, no atrophy or facial fasiculations present Cerebellar examination: Present: no dysmetria, no truncal ataxia, no difficulty with rapid alternating movements Results - Laboratory Findings CBC and BMP: 12/22/17 10:13 12/22/17 10:13 Abnormal lab findings: Abnormal lab results RBC 5.03 M/mcL (3.82-4.97) H 12/22/17 10:13 Hct 45.3 % (35.3-44.9) H 12/22/17 10:13 Est GFR (Non-Af Amer) 53 (> 60) L 12/22/17 10:13 Glucose 194 mg/dL (70-105) H 12/22/17 10:13 POC Glucose 161 mg/dL (70-99) H 12/22/17 20:06 Hemoglobin A1c 6.8 % (-5.6) H 12/23/17 03:38 TSH 13.407 mcIU/mL (0.340-5.600) H 12/22/17 10:13 Consult Discharge Plan - Plan Referrals: Amelia Reddy CNP [Primary Care Provider] - <Efrain Boss - Last Filed: 12/23/17 15:51> Assessment and Plan (1) Syncope Current Visit: Yes Status: Acute As above. I agree with Dr. Begum's assessment as stated above. I am not convinced that patient truly has seizures. She may have had convulsive syncope. MRI scan of the brain is negative for acute seizure focus. EEG reveals no evidence of epileptiform activity. Mild generalized encephalopathy consistent with her known history of dementia. I will hold on antiepileptic medications, consider loop recorder. Discharge her at your discretion. Qualifiers: Syncope type: unspecified Qualified Code(s): R55 - Syncope and collapse Subjective Interval history: As above. Chart was reviewed, patient was seen and examined independently. Patient is back to her normal baseline. She is alert and oriented to person and place. No further of episodes of confusion. Neurologic workup is all negative. Objective - Constitutional Vitals: Temp Pulse Resp BP Pulse Ox 98.6 F 70 17 142/68 96 12/23/17 15:26 12/23/17 15:26 12/23/17 15:26 12/23/17 15:26 12/23/17 15:26 - Neurological Exam Sensation intact: Present: other Reflex and gait examination: other Mental Status Examination: Present: awake Results - Laboratory Findings CBC and BMP: 12/22/17 10:13 12/22/17 10:13 Abnormal lab findings: Abnormal lab results RBC 5.03 M/mcL (3.82-4.97) H 12/22/17 10:13 Hct 45.3 % (35.3-44.9) H 12/22/17 10:13 Est GFR (Non-Af Amer) 53 (> 60) L 12/22/17 10:13 Glucose 194 mg/dL (70-105) H 12/22/17 10:13 POC Glucose 161 mg/dL (70-99) H 12/22/17 20:06 Hemoglobin A1c 6.8 % (-5.6) H 12/23/17 03:38 TSH 13.407 mcIU/mL (0.340-5.600) H 12/22/17 10:13
[2017-12-23] MEDS: Insulin LISPRO 300 UNITS/3 ML VIAL SQ SCH ×2 (08:13→11:34)
[2017-12-23] MEDS ORDERED: Cholecalciferol (D-3) 1,000 UNIT TABLET PO SCH (09:00)
[2017-12-23] MEDS ORDERED: Multivit/Ca/Min/Fe/FA 1 TAB TABLET PO SCH (09:00)
[2017-12-23] MEDS: 0.9 % Sodium Chloride 1,000 ML IVC SCH (10:09)
--- NOTE | 2017-12-23 13:16 | Electrocardiograph Report ---
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
--- NOTE | 2017-12-23 15:10 | Discharge Summary ---
- NOTES TO OUTPATIENT PROVIDER Notes to Outpatient Provider: f/u with PCP in one week Orders not resulted at time of discharge: Pending orders 12/22/17 14:40 UA w. reflex culture [Urinalysis Reflex Cult & Micro] [URIN] Stat 12/23/17 10:51 UA w. reflex culture [Urinalysis Reflex Cult & Micro] [URIN] Stat Date of Encounter: 12/23/17 Time of Encounter: 15:04 - Discharge Diagnosis (1) Syncope Priority: Primary Status: Acute Qualifiers: Syncope type: unspecified Qualified Code(s): R55 - Syncope and collapse (2) Hypothyroidism Priority: Secondary Status: Chronic Qualifiers: Hypothyroidism type: acquired Qualified Code(s): E03.9 - Hypothyroidism, unspecified (3) A-fib Priority: Secondary Status: Chronic Qualifiers: Atrial fibrillation type: paroxysmal Qualified Code(s): I48.0 - Paroxysmal atrial fibrillation (4) Dementia Priority: Secondary Status: Acute Qualifiers: Dementia type: unspecified type Dementia behavioral disturbance: without behavioral disturbance Qualified Code(s): F03.90 - Unspecified dementia without behavioral disturbance (5) HLD (hyperlipidemia) Priority: Secondary Status: Chronic Qualifiers: Hyperlipidemia type: pure hypercholesterolemia Qualified Code(s): E78.00 - Pure hypercholesterolemia, unspecified; E78.0 - Pure hypercholesterolemia (6) HTN (hypertension) Priority: Secondary Status: Chronic Qualifiers: Hypertension type: essential hypertension Qualified Code(s): I10 - Essential (primary) hypertension (7) Non-insulin dependent type 2 diabetes mellitus Priority: Secondary Status: Chronic Hospital course: Ms. Tran is a 87 year old female w/PMH of atrial fibrillation not on anti coag due to fall /bleed risk, dementia, diabetes, HLD, HTN, seasonal allergies, and thyroid disease presented to ER w/CC of syncope. As per family she had syncope and experienced weakness of the left side afterwards. No alleviating or aggravating factors. Pt was admitted in the hospital and her CT of head did not show any acute intracranial abnormality. Her brain MRI showed no acute infarction. Her EEG did not show any acute epileptic form activity, she does have mild encephalopathy changes probably metabolic / dementia encephalopathy related She was evaluated by neurology did not recommend any further recommendations. Her syncope seems to be most likely vasovagal. Patient was evaluated by occupation therapy who recommended for rolling walker. Will send her home in stable condition today. - Time Spent with Patient Total time spent providing and/or coordinating discharge services: - Discharge Medications Home Medications: Aspirin Enteric Coated [Aspirin EC] 81 mg PO QPM 01/27/15 [History] Acetaminophen [Tylenol Arthritis] 1,300 mg PO DAILY PRN 07/16/15 [History] Atorvastatin [Lipitor] 10 mg PO HS 07/09/17 [History] Calcium Carbonate/Vitamin D3 [Calcium 600 + Vit D Softgel] 1 tab PO BID 07/09/17 [History] Levothyroxine Sodium 50 mcg PO QAM 07/09/17 [History] Metformin HCl [Glucophage] 1,000 mg PO BID 07/09/17 [History] Montelukast [Singulair] 10 mg PO DAILY 07/09/17 [History] Multivitamin [One Daily Multivitamin] 1 tab PO QAM 07/09/17 [History] Docusate [Colace] 100 mg PO BID PRN 08/02/17 [History] Mirtazapine 7.5 mg PO HS 10/31/17 [History] Diltiazem [Cardizem] 30 mg PO QID #120 tablet 11/02/17 [Rx] Donepezil [Aricept] 5 mg PO HS 12/22/17 [History] Allergies/Adverse Reactions: Allergy/AdvReac Type Severity Reaction Status Date / Time No Known Allergies Allergy Verified 12/22/17 10:33 Date of admission: 12/22/17 13:08 Primary care physician: Amelia Reddy CNP Consults: 12/22/17 09:38 Consult to PICC team [Consult to Invasive Line Access Team] [CONS] Stat Reason for Consult: hard access Line Type: Midline 12/22/17 10:20 Consult to Invasive Line Access Team [CONS] Routine Reason for Consult: poor access Line Type: EPIV 12/22/17 13:49 Consult to Nutrition [CONS] Routine Comment: DUNG JEREZ Consulting Provider: NUTRITION Reason for Dietary Consult: PO Supplementation 12/22/17 13:54 Consult to Ingredient Scaler [CONS] Routine Reason for SW Consult: Please assess patient for possible home needs for post-discharge planning. Pts. daughter requests walker w/rollers 12/22/17 13:55 Consult to Occupational Therapy [CONS] Routine Comment: Evaluate, develop and implement POC Reason for Consult: Patient has syncopal episodes and then experiences weakness in bilateral LEs. Uses walker for ambulation. Please assess patient for ambulation strength, stability, safety, and possible home assistive/rehabilitation needs for post-discharge planning. Does patient have active BEDREST order?: No Is patient medically & hemodynamically stable?: Yes Patient assessed for mobility or mobilized this visit?: No 12/22/17 13:58 Consult to Physical Therapy [CONS] Routine Comment: Evaluate, develop and implement POC Reason for Consult: Patient has syncopal episodes and then experiences weakness in bilateral LEs. Uses walker for ambulation. Please assess patient for ambulation strength, stability, safety, and possible home assistive/rehabilitation needs for post-discharge planning. Does patient have active BEDREST order?: No Is patient medically & hemodynamically stable?: Yes Patient assessed for mobility or mobilized this visit?: No 12/22/17 14:05 Consult to Neurology [CONS] Routine Consulting Provider: Neurology [facility] Reason for Consult: Patient has hx of syncopal episodes with last one today. Daughter states that the pt. shakes on the left side during episodes and then experiences weakness of the left side. CT of the head shows stable appearance of sequela of remote right occipital stroke. MRI of the head/brain ordered. NIHSS modified. EEG ordered. Syncope versus seizures. Call Completed: Yes 12/22/17 16:19 Consult to Interpret Exam [CONS] Routine Consulting Provider: Efrain Boss Consult to Interpret Exam: Interpret EEG - Constitutional Vitals: Temp Pulse Resp BP Pulse Ox 98.0 F 59 16 176/71 96 12/23/17 11:15 12/23/17 11:15 12/23/17 11:15 12/23/17 11:15 12/23/17 11:15 General appearance: Present: cooperative, A&O X 3, pleasant, no acute distress, answers questions appropriately Exam: aa - Head Head exam: Present: atraumatic, normal inspection - Neck Neck exam general surgery: Present: supple - Respiratory Respiratory exam: Present: decreased breath sounds. Absent: rales, respiratory distress, rhonchi, wheezes - Cardiovascular Cardiovascular exam: Present: +S1, +S2. Absent: tachycardia - GI/Abdominal GI/Abdominal exam: Present: normal bowel sounds, soft. Absent: rebound, rigid, tenderness - Back Exam Back exam: Absent: CVA tenderness (L), CVA tenderness (R) - Neurological Exam Neurological exam: Present: alert, oriented X3. Absent: motor sensory deficit - Patient Status Disposition: Home, Self-Care Condition: Good Overall status at discharge: patient is back to baseline - Discharge Instructions Follow Up With: Amelia Reddy CNP [Primary Care Provider] - - Diet and Activity Activity: increase activity as tolerated Diet: low salt diet
[2017-12-23 15:27] VITALS: BP 142/68
[2017-12-23 16:39] LABS: Bilirubin,Urine Negative (Negative); Blood,Urine Negative (Negative); Clarity,Urine Clear (Clear); Color,Urine Yellow (Yellow); Glucose,Urine (UA) 250 mg/dL (Normal); Ketones,Urine Negative (Negative); Leukocyte Esterase,Urine Negative (Negative); Nitrite,Urine Negative (Negative); Protein,Urine Negative (Neg-Trace); Specific Gravity,Urine 1.014 (1.010-1.025); Urobilinogen,Urine Normal (Normal)
== END 2017-12-23 18:15 | disposition home or self-care (01) ==
LOC: EMEROOARM 08:45 → 3BNU 08:45 → SUATTDRO 13:08 → 3BNU 14:00
PROVIDERS: ADMIT Hospitalist; ATTEND Family Medicine

== ENCOUNTER 2017-12-31 07:50 | Inpatient (IN) ==
--- NOTE | 2017-12-31 07:52 | Emergency Department Note ---
Disposition Clinical Impression: Wheezing, Dyspnea Disposition: Admitted As Inpatient Condition: Fair General Adult HPI - General Stated complaint: LEW / persistant cough Time Seen by Provider: 12/31/17 07:51 - Related Data Home Medications Medication Instructions Recorded Confirmed RX: Aspirin Enteric Coated 81 mg PO QPM 01/27/15 12/31/17 [Aspirin EC] RX: Acetaminophen [Tylenol 1,300 mg PO DAILY PRN 07/16/15 12/31/17 Arthritis] RX: Atorvastatin [Lipitor] 10 mg PO HS 07/09/17 12/31/17 RX: Calcium Carbonate/Vitamin D3 1 tab PO DAILY 07/09/17 12/31/17 [Calcium 600 + Vit D Softgel] RX: Levothyroxine Sodium 50 mcg PO QAM 07/09/17 12/31/17 RX: Metformin HCl [Glucophage] 1,000 mg PO BID 07/09/17 12/31/17 RX: Montelukast [Singulair] 10 mg PO DAILY 07/09/17 12/31/17 RX: Multivitamin [One Daily 1 tab PO QAM 07/09/17 12/31/17 Multivitamin] RX: Docusate [Colace] 100 mg PO BID PRN 08/02/17 12/31/17 RX: Donepezil [Aricept] 5 mg PO HS 12/22/17 12/31/17 Enalapril Maleate [Vasotec] 10 mg PO DAILY 12/31/17 12/31/17 Loratadine [Allergy Relief] 10 mg PO DAILY 12/31/17 12/31/17 RX: Mirtazapine [Remeron] 15 mg PO HS 12/31/17 12/31/17 Previous Rx's Medication Instructions Recorded RX: Diltiazem [Cardizem] 30 mg PO QID #120 tablet 11/02/17 Allergies Allergy/AdvReac Type Severity Reaction Status Date / Time No Known Allergies Allergy Verified 12/31/17 09:09 Past Medical History - Past Medical History Medical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: non-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, atrial fibrillation, dementia, diabetes, hyperlipidemia, hypertension, thyroid disease, other Surgical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: orthopedic, other Psychiatric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: depression 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 - Social History Smoking Status: Unknown if ever smoked Smokeless Tobacco Status: No Alcohol use: Reports: none Drug use: Reports: none Course Vital Signs Temperature 98.4 F 12/31/17 07:53 Pulse Rate 78 12/31/17 07:53 Respiratory Rate 20 12/31/17 07:53 Blood Pressure 133/62 12/31/17 07:53 O2 Sat by Pulse Oximetry 92 12/31/17 07:53 Temperature 98.3 F 12/31/17 14:58 Pulse Rate 103 12/31/17 14:58 Respiratory Rate 20 12/31/17 15:14 Blood Pressure 110/65 12/31/17 14:58 O2 Sat by Pulse Oximetry 97 12/31/17 15:14 Oxygen Delivery Oxygen Delivery Nasal Cannula Medical Decision Making - Lab Data Result diagrams: 12/31/17 08:14 12/31/17 08:14 Lab Results 12/31/17 12/31/17 12/31/17 Range/Units 08:14 08:14 08:14 WBC 5.0 (4.3-11.1) K/mcL RBC 4.73 (3.82-4.97) M/mcL Hgb 13.8 (11.5-15.4) g/dL Hct 43.3 (35.3-44.9) % MCV 91.5 (83.0-100.0) fL MCH 29.2 (28.0-33.3) pg MCHC 31.9 (31.6-35.5) g/dL RDW 14.2 (11.5-14.5) % Plt Count 148 (140-400) K/mcL MPV 10.8 (9.4-12.4) fL Immature Gran % 0.2 (0-4) % Seg Neutrophils % 48.4 % Lymphocytes % 35.0 % Monocytes % 12.8 % Eosinophils % 3.2 % Basophils % 0.4 % Neutrophils # 2.4 (1.6-8.9) K/mcL Lymphocytes # 1.8 (0.6-4.6) K/mcL Monocytes # 0.6 (0.0-1.3) K/mcL Eosinophils # 0.2 (0.0-0.6) K/mcL Basophils # 0.0 (0.0-0.2) K/mcL Platelet Estimate Normal (Normal) Sodium 137 (136-145) mEq/L Potassium 3.9 (3.5-5.1) mEq/L Chloride 105 (98-107) mEq/L Carbon Dioxide 22 L (23-29) mEq/L BUN 19 (8-23) mg/dL Creatinine 1.08 (0.60-1.20) mg/dL Est GFR ( Amer) 58 L (> 60) Est GFR (Non-Af Amer) 48 L (> 60) BUN/Creatinine Ratio 18 (6-26) Glucose 246 H (70-105) mg/dL Calculated Osmolality 294 (280-300) Calcium 8.6 (8.6-10.3) mg/dL Phosphorus 3.8 (2.7-4.5) mg/dL Magnesium 1.5 L (1.6-2.6) mg/dL Troponin I < 0.03 (< 0.04) ng/mL B-Natriuretic Peptide (Less than 100) pg/mL Attestation Statement - Attestation Attestation: I examined this patient and my medical decision-making was reviewed with the Resident Physician. I agree with the documented findings, disposition and treatment plan as described except to the extent set forth below. [id number] time provided Patient arrives from home by EMS. She has history of dementia. She complains of a persistent cough. She appears slightly pale but in no acute respiratory distress upon arrival. Patient evaluated in conjunction with the resident physician
[2017-12-31] MEDS ORDERED: Ipratropium/Albuterol Neb 3 ML IH ONE (07:56)
[2017-12-31] MEDS ORDERED: methylPREDNISolone 125 MG/2 ML VIAL IVP ONE (07:56)
--- NOTE | 2017-12-31 08:00 | Emergency Department Note ---
Disposition Clinical Impression: Wheezing Dyspnea Qualifiers: Dyspnea type: unspecified Qualified Code(s): R06.00 - Dyspnea, unspecified Disposition: Admitted As Inpatient Condition: Fair Referrals: Amelia Reddy CNP [Primary Care Provider] - Forms: ED Satisfaction Letter Time of Disposition: 09:31 SOB HPI - General Chief Complaint: ED Shortness of Breath/Dyspnea Stated Complaint: LEW Time Seen by Provider: 12/31/17 07:51 Source: patient, EMS Mode of arrival: EMS Limitations: other (dementia, chronic) Nursing Notes Reviewed: Yes Vital Signs Reviewed: Yes - History of Present Illness Patient is an 87-year-old female with past medical history of dementia, hypertension, hyperlipidemia, A. fib, history of pneumonia in the past. She presents today via EMS due to concern for shortness of breath and wheezing. She is a very poor historian and is only able to give limited details. Family is not present currently with the patient. EMS states that she lives at home, was found to have an oxygen saturation of 92% when he arrived. She does not have home oxygen to their knowledge. Patient denies any history of COPD or oxygen use but does report a history of pneumonia. Denies any chest pain, fevers, nausea, vomiting abdominal pain, dysuria, hematuria. She is unable to tell me how long she has had shortness of breath and wheezing. Is not currently on any antibiotics or steroids. She is unsure if she is on blood thinner. - Related Data Home Medications Medication Instructions Recorded Confirmed Aspirin Enteric Coated [Aspirin EC] 81 mg PO QPM 01/27/15 12/31/17 Acetaminophen [Tylenol Arthritis] 1,300 mg PO DAILY PRN 07/16/15 12/31/17 Atorvastatin [Lipitor] 10 mg PO HS 07/09/17 12/31/17 Calcium Carbonate/Vitamin D3 1 tab PO DAILY 07/09/17 12/31/17 [Calcium 600 + Vit D Softgel] Levothyroxine Sodium 50 mcg PO QAM 07/09/17 12/31/17 Metformin HCl [Glucophage] 1,000 mg PO BID 07/09/17 12/31/17 Montelukast [Singulair] 10 mg PO DAILY 07/09/17 12/31/17 Multivitamin [One Daily 1 tab PO QAM 07/09/17 12/31/17 Multivitamin] Docusate [Colace] 100 mg PO BID PRN 08/02/17 12/31/17 Donepezil [Aricept] 5 mg PO HS 12/22/17 12/31/17 Enalapril Maleate [Vasotec] 10 mg PO DAILY 12/31/17 12/31/17 Loratadine [Allergy Relief] 10 mg PO DAILY 12/31/17 12/31/17 Mirtazapine [Remeron] 15 mg PO HS 12/31/17 12/31/17 Previous Rx's Medication Instructions Recorded Diltiazem [Cardizem] 30 mg PO QID #120 tablet 11/02/17 Allergies Allergy/AdvReac Type Severity Reaction Status Date / Time No Known Allergies Allergy Verified 12/31/17 09:09 All systems ED: reviewed and negative except as stated. Constitutional: Denies: fever Cardiovascular: Denies: chest pain, palpitations Respiratory: Reports: dyspnea, wheezes. Denies: cough, hemoptysis Gastrointestinal: Denies: abdominal pain, nausea, vomiting Genitourinary: Denies: urgency, dysuria Neurological: Denies: headache, weakness, numbness, paresthesias Past Medical History - Past Medical History Attestation: Yes The following information was validated with the patient. 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 - Social History Smoking Status: Unknown if ever smoked Smokeless Tobacco Status: No Alcohol use: Reports: none Drug use: Reports: none Physical Exam - General Limitations: other (chronic dementia) General appearance: alert, in no apparent distress - Head Head exam: atraumatic, normocephalic, normal inspection - Eye Eye exam: Present: normal appearance, PERRL, EOMI - ENT ENT exam: normal exam, normal oropharynx, mucous membranes moist - Neck Neck exam: Present: normal inspection, full ROM, trachea midline - Chest Chest inspection: Present: normal inspection, symmetric chest wall rise - Respiratory Respiratory exam: Present: other (Significant wheezes throughout. No tripoding. No accessory muscle use, no overt rhonchi heard.) - Cardiovascular Cardiovascular exam: Present: regular rate, normal rhythm, normal heart sounds - Abdominal Exam Abdominal exam: Present: soft, Non-Tender. Absent: tenderness, distention, guarding, rebound, rigidity - Extremities Exam Extremities exam: Present: normal inspection, full ROM. Absent: tenderness, pedal edema, calf tenderness - Neurological Exam Neurological exam: Present: alert, other (Pleasantly demented. No focal neurologic deficits. No obvious motor sensory deficit.) - Psychiatric Psychiatric exam: Present: normal affect, normal mood - Skin Skin exam: Present: warm, dry, intact, normal color Course Course Narrative: O2 sat 92% on room air on . Patient had significant wheezes throughout on exam. No tripoding, no accessory muscle use. We will go ahead and give the patient DuoNeb 3, Solu-Medrol. We will obtain basic blood work, troponin, BNP, EKG, chest x-ray Patient is poor historian and unable to tell me if she has any history of CHF or COPD in the past. She does have a history of pneumonia. No significant swelling of the lower extremities or calf tenderness. 20:32 currently receiving DuoNeb. No improvement in her wheezing. 21:05 DuoNeb tenderness. Patient has some mild improvement in wheezing and aeration but still has fairly significant wheezing throughout. We will place on nasal cannula oxygen and then proceed with admission. Chest x-ray shows no acute cardio pulmonary process. Labs negative for any major abnormality, troponin negative. 21:30 patient requiring 2 L nasal cannula oxygen to maintain saturation above 90%. Again, patient is not on home oxygen currently. Patient was accepted for admission by Dr. Johnson Vital Signs Temperature 98.4 F 12/31/17 07:53 Pulse Rate 78 12/31/17 07:53 Respiratory Rate 20 12/31/17 07:53 Blood Pressure 133/62 12/31/17 07:53 O2 Sat by Pulse Oximetry 92 12/31/17 07:53 Temperature 98.4 F 12/31/17 07:53 Pulse Rate 78 12/31/17 07:53 Respiratory Rate 20 12/31/17 08:14 Blood Pressure 133/62 12/31/17 07:53 O2 Sat by Pulse Oximetry 92 12/31/17 08:14 Shortness of Breath/Dyspnea - [facility] Narrative Medical decision making narrative: O2 sat 92% on room air on [facility]. Patient had significant wheezes throughout on exam. No tripoding, no accessory muscle use. We will go ahead and give the patient DuoNeb 3, Solu-Medrol. We will obtain basic blood work, troponin, BNP, EKG, chest x-ray Patient is poor historian and unable to tell me if she has any history of CHF or COPD in the past. She does have a history of pneumonia. No significant swelling of the lower extremities or calf tenderness. 20:32 currently receiving DuoNeb. No improvement in her wheezing. 21:05 DuoNeb tenderness. Patient has some mild improvement in wheezing and aeration but still has fairly significant wheezing throughout. We will place on nasal cannula oxygen and then proceed with admission. Chest x-ray shows no acute cardio pulmonary process. Labs negative for any major abnormality, troponin negative. 21:30 patient requiring 2 L nasal cannula oxygen to maintain saturation above 90%. Again, patient is not on home oxygen currently. Patient was accepted for admission by Dr. Johnson - Medical Records Medical records reviewed: Yes I reviewed the patient's medical records. - Lab Data Lab results reviewed: Yes I reviewed the patient's lab results. Result diagrams: 12/31/17 08:14 12/31/17 08:14 Lab Results 12/31/17 12/31/17 12/31/17 Range/Units 08:14 08:14 08:14 WBC 5.0 (4.3-11.1) K/mcL RBC 4.73 (3.82-4.97) M/mcL Hgb 13.8 (11.5-15.4) g/dL Hct 43.3 (35.3-44.9) % MCV 91.5 (83.0-100.0) fL MCH 29.2 (28.0-33.3) pg MCHC 31.9 (31.6-35.5) g/dL RDW 14.2 (11.5-14.5) % Plt Count 148 (140-400) K/mcL MPV 10.8 (9.4-12.4) fL Immature Gran % 0.2 (0-4) % Seg Neutrophils % 48.4 % Lymphocytes % 35.0 % Monocytes % 12.8 % Eosinophils % 3.2 % Basophils % 0.4 % Neutrophils # 2.4 (1.6-8.9) K/mcL Lymphocytes # 1.8 (0.6-4.6) K/mcL Monocytes # 0.6 (0.0-1.3) K/mcL Eosinophils # 0.2 (0.0-0.6) K/mcL Basophils # 0.0 (0.0-0.2) K/mcL Platelet Estimate Normal (Normal) Sodium 137 (136-145) mEq/L Potassium 3.9 (3.5-5.1) mEq/L Chloride 105 (98-107) mEq/L Carbon Dioxide 22 L (23-29) mEq/L BUN 19 (8-23) mg/dL Creatinine 1.08 (0.60-1.20) mg/dL Est GFR ( Amer) 58 L (> 60) Est GFR (Non-Af Amer) 48 L (> 60) BUN/Creatinine Ratio 18 (6-26) Glucose 246 H (70-105) mg/dL Calculated Osmolality 294 (280-300) Calcium 8.6 (8.6-10.3) mg/dL Troponin I < 0.03 (< 0.04) ng/mL B-Natriuretic Peptide (Less than 100) pg/mL - Radiology Data Radiology results reviewed: Yes I reviewed the patient's radiology results. - EKG Data EKG attestation: Yes I reviewed and interpreted this EKG. EKG results narrative: 12/31/2017 at 08:03. Normal sinus rhythm. Rate 83. CO 171. QRS 123. QTc 505. Left axis deviation. No acute ST elevation or depression. S.B.A.R. - S.B.A.R. Situation: Demographics, MOA Background: Presenting Complaint, Relevant PMH, Meds, & Allergies Assessment: Vital Signs, Course and respsone to treatment, Exam Concerns, Patient/Family Expectation, Pertinant Lab Results Recommendation: Barrier(s) to disposition, Recommendation based on pending studies, treatments, or consults S.B.A.R. Report Given to: Dr. Johnson
[2017-12-31 08:39] LABS: Basophils % 0.4 %; Eosinophils # 0.2 K/mcL (0.0-0.6); Eosinophils % 3.2 %; Hematocrit 43.3 % (35.3-44.9); Hemoglobin 13.8 g/dL (11.5-15.4); Immature Granulocytes % 0.2 % (0-4); Lymphocytes # 1.8 K/mcL (0.6-4.6); Mean Corpuscular HGB Conc 31.9 g/dL (31.6-35.5); Mean Corpuscular Hemoglobin 29.2 pg (28.0-33.3); Mean Corpuscular Volume 91.5 fL (83.0-100.0); Mean Platelet Volume 10.8 fL (9.4-12.4); Monocytes # 0.6 K/mcL (0.0-1.3); Monocytes % 12.8 %; Neutrophils # 2.4 K/mcL (1.6-8.9); Platelet Count 148 K/mcL (140-400); Red Blood Count 4.73 M/mcL (3.82-4.97); Red Cell Distribution Width 14.2 % (11.5-14.5); Segmented Neutrophils % 48.4 %
[2017-12-31 08:47] LABS: BUN/Creatinine Ratio 18 (6-26); Blood Urea Nitrogen 19 mg/dL (8-23); Calcium 8.6 mg/dL (8.6-10.3); Carbon Dioxide 22 mEq/L (23-29); Chloride 105 mEq/L (98-107); Glucose 246 mg/dL (70-105); Osmolality,Calculated 294 (280-300); Potassium 3.9 mEq/L (3.5-5.1); Sodium 137 mEq/L (136-145); Troponin I < 0.03 ng/mL (< 0.04); eGFR For Non-African Americans 48 (> 60)
[2017-12-31 08:59] LABS: Platelet Estimate Normal (Normal)
--- NOTE | 2017-12-31 09:41 | Internal Med History&Physical ---
Date of Encounter: 12/31/17 Time of Encounter: 09:36 Internal Medicine - H&P: HPI Chief complaint: Wheezing Admitted From: Home Plans for Post Hospital Care: Home History of present illness: Ms. Tran is a 87 year old female with history of atrial fibrillation not on anticoagulation secondary to falls,dementia, diabetes, HLD, HTN, seasonal allergies, and thyroid disease presented to ER via EMS w/CC wheezing. Daughter is the primary rig supervisor and patient is nonverbal at baseline along with dementia so most of the information was provided by the daughter at bedside. Daughter reports that she has had a recent upper respiratory tract infection and was prescribed steroids and Z-Shukri and believes that her mother has caught which she has. Daughter reports since yesterday patient started wheezing while she is at rest and sleeping so daughter provided her with a humidifier however it did not help her symptoms. As per daughter she has no history of asthma/COPD and does not have any home inhalers. She has never had symptoms like this before so she decided to bring her to the emergency department for further evaluation. Patient was recently admitted and discharged on 12/22 after she was worked up for syncope. As per daughter she has had no recent medication changes While the emergency department she was found to be wheezing, and saturating 92% on room air she was provided with DuoNeb's and Solu-Medrol without significant improvement in her wheezing so she was endorsed for further admission. Admission x-ray is negative for any acute disease. Past Med Surg Social Fam HX - Past Medical History Medical history: non-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, atrial fibrillation, dementia, diabetes, hyperlipidemia, hypertension, thyroid disease, other Additional medical history: HX OF RECURRENT UTI. CHR. CONSTIPATION. INH. ALLERGIES. Psychiatric history: depression - Past Surgical History Surgical History: orthopedic, other Additional surgical history: rotator cuff sx. - Social History Smoking Status: Unknown if ever smoked Smokeless Tobacco Status: No Alcohol use: none Drug use: none - Family History Mother Family Member Ethnicity: Non- Living Status: Hx Family GI Disorders: Yes (Colon problems) Sister Family Member Ethnicity: Non- Living Status: Hx Family Neurologic Disorders: Yes (Alzheimer's disease) Father Family Member Ethnicity: Non- Living Status: Hx Family Cardiac Disorders: Yes ([place], CAD) Hx Family Respiratory Disorders: No Hx Family Cancer: No Hx Family GI Disorders: No Hx Family Endocrine Disorder: Yes (DM) Hx Family Neuromuscular Disorders: No Hx Family Neurologic Disorders: No Hx Family HEENT Disorders: No Hx Family Autoimmune Disorders: No Internal Medicine - H&P: Meds Aspirin Enteric Coated [Aspirin EC] 81 mg PO QPM 01/27/15 [History] Acetaminophen [Tylenol Arthritis] 1,300 mg PO DAILY PRN 07/16/15 [History] Atorvastatin [Lipitor] 10 mg PO HS 07/09/17 [History] Calcium Carbonate/Vitamin D3 [Calcium 600 + Vit D Softgel] 1 tab PO DAILY 0 07/09/17 [History] Levothyroxine Sodium 50 mcg PO QAM 07/09/17 [History] Metformin HCl [Glucophage] 1,000 mg PO BID 07/09/17 [History] Montelukast [Singulair] 10 mg PO DAILY 07/09/17 [History] Multivitamin [One Daily Multivitamin] 1 tab PO QAM 07/09/17 [History] Docusate [Colace] 100 mg PO BID PRN 08/02/17 [History] Diltiazem [Cardizem] 30 mg PO QID #120 tablet 11/02/17 [Rx] Donepezil [Aricept] 5 mg PO HS 12/22/17 [History] Enalapril Maleate [Vasotec] 10 mg PO DAILY 12/31/17 [History] Loratadine [Allergy Relief] 10 mg PO DAILY 12/31/17 [History] Mirtazapine [Remeron] 15 mg PO HS 12/31/17 [History] Allergy/AdvReac Type Severity Reaction Status Date / Time No Known Allergies Allergy Verified 12/31/17 09:09 ROS unobtainable: due to mental status (Patient is demented and nonverbal at baseline) - Constitutional Vitals: Temp Pulse Resp BP Pulse Ox 98.4 F 78 20 133/62 92 12/31/17 07:53 12/31/17 07:53 12/31/17 08:14 12/31/17 07:53 12/31/17 08:14 Exam: General: Easily arousable by voice and soft touch, laying supine in no acute distress Head: atraumatic, normocephalic, Eye: normal appearance, anicteric ENT: mucous membranes moist, normal external ear exam Neck: normal inspection, trachea midline, full ROM, no carotid bruits Chest: normal inspection, symmetric chest rise Respiratory: Good respiratory effort. Diffuse wheezing in the anterior chest, along with crackles at the mid axillary line bilaterally Cardiovascular: Regular rate and rhythm. s1 and s2 No clicks, rubs, gallops, or murmors. Abdomen: Bowel sounds present normoactive x-4 quadrants. Abdomen is soft, nondistended. no Epigastric tenderness. No guarding or rebound. No organomegaly noted, obese musculoskeletal: Spontaneously moving all extremities. no edema, no calf tenderness or discoloration Skin: warm, dry, intact. Neuro: Unable to perform as patient is uncooperative to the exam secondary to dementia, she is moving all extremities spontaneously. arousable to voice and soft touch Psych: Patient's affect is normal Internal Med - H&P Results - Labs CBC & Chem 7: 12/31/17 08:14 12/31/17 08:14 Labs: Short CBC 12/31/17 Range/Units 08:14 WBC 5.0 (4.3-11.1) K/mcL Hgb 13.8 (11.5-15.4) g/dL Hct 43.3 (35.3-44.9) % Plt Count 148 (140-400) K/mcL Neutrophils # 2.4 (1.6-8.9) K/mcL BMP 12/31/17 08:14 Sodium 137 Potassium 3.9 Chloride 105 Carbon Dioxide 22 L BUN 19 Creatinine 1.08 Glucose 246 H Calcium 8.6 Cardiac Enzymes 12/31/17 Range/Units 08:14 Troponin I < 0.03 (< 0.04) ng/mL - EKG Data -: EKG Interpreted by Myself (Normal sinus rhythm, RBBB and LAFB, LVH, anterior Q waves, QT 505) - Impressions ITS Impressions Chest X-Ray 12/31/17 07:56 IMPRESSION: No acute cardiopulmonary disease. D/ / Billie Zuniga MD / Billie Zuniga MD Interpreting Provider: Billie Zuniga MD - Assessment and plan (1) Acute bronchitis Current Visit: Yes Status: Acute Assessment and plan: Most likely postviral, recent sick contactdaughter who is a caregiver We will start her on ceftriaxone and [id number] as per cultures Urine antigens Respiratory viral panel Sputum cultures Duo nebs every 4 hours MRSA screen Solu-Medrol 40 mg twice a day Continuous pulse ox Will need outpatient sleep study Evaluated for home oxygen needs If respiratory status does not improve consider CT chest Qualifiers: Bronchitis organism: unspecified organism Qualified Code(s): J20.9 - Acute bronchitis, unspecified (2) Prolonged Q-T interval on ECG Current Visit: Yes Status: Acute Assessment and plan: QTC on EKG is 505 Magnesium stat Keep potassium above 4 and magnesium above 2 Avoid QT prolonging medications Cardiac monitoring for prolonged QT EKG in the a.m. (3) Dementia Current Visit: No Status: Acute Assessment and plan: Continue donepezil I discussed CODE STATUS with daughter and daughter would like patient to be full code Consider palliative consult for goals of care as she is nonverbal, has dementia and high risk for aspiration Bedside swallow eval if passes may have diabetic diet Fall precautions, aspiration precautions Qualifiers: Dementia type: unspecified type Dementia behavioral disturbance: without behavioral disturbance Qualified Code(s): F03.90 - Unspecified dementia without behavioral disturbance (4) A-fib Current Visit: No Status: Chronic Assessment and plan: Currently rate controlled Not on anticoagulation secondary to multiple falls Continue home medications Qualifiers: Atrial fibrillation type: paroxysmal Qualified Code(s): I48.0 - Paroxysmal atrial fibrillation (5) Diabetes mellitus Current Visit: No Status: Chronic Assessment and plan: Sliding-scale insulin adjust as per fingersticks A1c in a.m. Qualifiers: Diabetes mellitus type: type 2 Diabetes mellitus intermediate accountant insulin use: without intermediate accountant use Diabetes mellitus complication status: without complication Qualified Code(s): E11.9 - Type 2 diabetes mellitus without complications (6) HLD (hyperlipidemia) Current Visit: No Status: Chronic Assessment and plan: Tenia home medications if not contraindicated Qualifiers: Hyperlipidemia type: pure hypercholesterolemia Qualified Code(s): E78.00 - Pure hypercholesterolemia, unspecified; E78.0 - Pure hypercholesterolemia (7) HTN (hypertension) Current Visit: No Status: Chronic Assessment and plan: Continue home medications if not contraindicated Qualifiers: Hypertension type: essential hypertension Qualified Code(s): I10 - Essential (primary) hypertension (8) Overweight (BMI 25.0-29.9) Current Visit: Yes Status: Acute Assessment and plan: BMI 29.6 Consider nutrition consult (9) DVT prophylaxis Current Visit: No Status: Acute Assessment and plan: Heparin subcutaneous - Time Spent With Patient Total time spent is greater than 50% in coordination of care (as documented) at patient's floor/unit and/or counseling patient:
[2017-12-31] MEDS ORDERED: Naloxone 0.4 MG/ML INJ IVP PRN (09:51)
[2017-12-31] MEDS ORDERED: Doxycycline 100 MG in 0.9 % Sodium Chloride Mini Bag 100 ML IVPB SCH ×2 (10:00→21:45)
[2017-12-31] MEDS ORDERED: D5% in Water 1,000 ML IVC PRN (10:01)
[2017-12-31] MEDS ORDERED: Dextrose Gel 15 GM/37.5 ML TUBE PO PRN ×2 (10:01)
[2017-12-31] MEDS ORDERED: *HR* Dextrose 50 % in Water (Syg) 50 ML SYRINGE IVP PRN (10:01)
[2017-12-31 10:14] LABS: Magnesium 1.5 mg/dL (1.6-2.6); Phosphorous 3.8 mg/dL (2.7-4.5)
[2017-12-31] MEDS: Ipratropium/Albuterol Neb 3 ML IH SCH ×4 (12:26→23:37)
[2017-12-31] MEDS: cefTRIAXone 2,000 MG in Water for inj. (sterile) 20 ML 20 ML IVP SCH (12:33)
[2017-12-31] MEDS: Insulin LISPRO 300 UNITS/3 ML VIAL SQ SCH ×3 (14:36→23:25)
[2017-12-31] MEDS: *HR* Heparin 5,000 UNIT/ML VIAL SQ SCH ×2 (14:41→21:42)
[2017-12-31] MEDS: Aspirin Enteric Coated 81 MG Tablet PO SCH (18:01)
[2017-12-31 19:06] LABS: Adenovirus Not Detected (Not Detect); Coronavirus 229E Not Detected (Not Detect); Coronavirus HKU1 Not Detected (Not Detect); Coronavirus NL63 Not Detected (Not Detect); Coronavirus OC43 Not Detected (Not Detect); Human Metapneumovirus Not Detected (Not Detect); Human Rhinovirus/Enterovirus Not Detected (Not Detect); Influenza A Subtype 2009 H1 Not Detected (Not Detect); Influenza A Untypeable Not Detected (Not Detect); Influenza B Not Detected (Not Detect); Parainfluenza Virus 1 Not Detected (Not Detect); Parainfluenza Virus 2 Not Detected (Not Detect); Parainfluenza Virus 3 Not Detected (Not Detect); Parainfluenza Virus 4 Not Detected (Not Detect)
[2017-12-31 19:07] LABS: Bordetella Pertussis Not Detected (Not Detect); Chlamydophila pneumoniae Not Detected (Not Detect); Mycoplasma pneumoniae Not Detected (Not Detect)
[2017-12-31 19:08] LABS: Respiratory Syncytial Virus DETECTED (Not Detect)
[2017-12-31] MEDS: MethylPREDNISolone 40 MG/ML VIAL IVP SCH (20:26)
[2017-12-31] MEDS: Mirtazapine 15 MG TABLET PO SCH (20:29)
--- NOTE | 2017-12-31 21:11 | Electrocardiograph Report ---
[facility] Test Date: 2017-12-31 Pat Name: Anyi Tran Department: [id number] Room: 3B54 Gender: F Health Program Manager: : [id number] Requested By: Miles Walsh Order Number: [id number] Reading MD: Grisel Noriega Measurements Intervals [place] Rate: 83 P: 53 CT: 171 QRS: -78 QRSD: 123 T: 55 QT: 429 QTc: 505 Interpretive Statements Sinus rhythm RBBB and LAFB Probable left ventricular hypertrophy Anterior Q waves, possibly due to LVH Left axis deviation POOR R WAVE PROGRESSION Electronically Signed On 12-31-2017 21:10:03 EST by Grisel Noriega
[2017-12-31] MEDS: Doxycycline 100 MG in 0.9 % Sodium Chloride Mini Bag 100 ML IVPB SCH (22:15)
[2018-01-01] MEDS: Ipratropium/Albuterol Neb 3 ML IH SCH ×6 (04:24→23:43)
[2018-01-01] MEDS: *HR* Heparin 5,000 UNIT/ML VIAL SQ SCH ×3 (05:40→21:24)
[2018-01-01] MEDS: Insulin LISPRO 300 UNITS/3 ML VIAL SQ SCH ×3 (05:41→17:52)
[2018-01-01 06:06] LABS: Basophils % 0.1 %; Hematocrit 38.7 % (35.3-44.9); Hemoglobin 12.8 g/dL (11.5-15.4); Immature Granulocytes % 0.2 % (0-4); Lymphocytes # 0.6 K/mcL (0.6-4.6); Lymphocytes % 5.9 %; Mean Corpuscular HGB Conc 33.1 g/dL (31.6-35.5); Mean Corpuscular Hemoglobin 29.4 pg (28.0-33.3); Mean Platelet Volume 11.4 fL (9.4-12.4); Monocytes # 0.5 K/mcL (0.0-1.3); Monocytes % 4.7 %; Platelet Count 151 K/mcL (140-400); Red Blood Count 4.35 M/mcL (3.82-4.97); Red Cell Distribution Width 14.5 % (11.5-14.5); Segmented Neutrophils % 89.1 %
[2018-01-01 06:07] LABS: Neutrophils # 8.7 K/mcL (1.6-8.9)
[2018-01-01 06:29] LABS: Calcium 8.6 mg/dL (8.6-10.3); Potassium 3.8 mEq/L (3.5-5.1)
[2018-01-01 06:29] LABS: Bilirubin,Urine Negative (Negative); Blood,Urine Negative (Negative); Clarity,Urine Clear (Clear); Color,Urine Dark Yellow (Yellow); Glucose,Urine (UA) 100 mg/dL (Normal); Ketones,Urine 15 mg/dL (Negative); Leukocyte Esterase,Urine Trace (Negative); Nitrite,Urine Negative (Negative); Protein,Urine Trace mg/dL (Neg-Trace); Specific Gravity,Urine > 1.030 (1.010-1.025); Urobilinogen,Urine Normal (Normal)
[2018-01-01 06:34] LABS: Bacteria,Urine None Seen per hpf (None-Few); Hyaline Casts,Urine None Seen per lpf (None-Few); Squamous Epithelial Cell,Urine Many per lpf (None-Few)
[2018-01-01 08:34] LABS: Estimated Average Glucose 163 mg/dl; Hemoglobin A1C 7.3 %
[2018-01-01] MEDS: MethylPREDNISolone 40 MG/ML VIAL IVP SCH ×2 (08:59→21:23)
[2018-01-01] MEDS: cefTRIAXone 2,000 MG in Water for inj. (sterile) 20 ML 20 ML IVP SCH (09:01)
[2018-01-01] MEDS: Doxycycline 100 MG in 0.9 % Sodium Chloride Mini Bag 100 ML IVPB SCH ×2 (09:06→21:29)
[2018-01-01] MEDS: Lisinopril 20 MG TABLET PO SCH (09:13)
[2018-01-01] MEDS: Loratadine 10 MG TABLET PO SCH (09:14)
[2018-01-01] MEDS: Cholecalciferol (D-3) 1,000 UNIT TABLET PO SCH (09:14)
[2018-01-01] MEDS: Multivit/Ca/Min/Fe/FA 1 TAB TABLET PO SCH (09:14)
--- NOTE | 2018-01-01 11:21 | Internal Med Progress Note ---
Hospitalist Progress Note - Encounter Date of Encounter: 01/01/18 Time of Encounter: 11:16 - Subjective Interval History: Ms. Tran is a 87 year old female with history of atrial fibrillation not on anticoagulation secondary to falls,dementia, diabetes, HLD, HTN, seasonal allergies, and thyroid disease presented to ER via EMS w/CC wheezing. Daughter reports that she has had a recent upper respiratory tract infection and was prescribed steroids and Z-Shukri and believes that her mother has caught which she has. While the emergency department she was found to be wheezing, and saturating 92% on room air she was provided with DuoNeb's and Solu-Medrol without significant improvement in her wheezing so she was endorsed for further admission. Pt was admitted in the hospital and started her on IV steroids, frequent bronchodilators and prophylactic abx. Pt is alert, awake and demented, does not communicate verbally which is at her baseline. No events over night. Currently on 2 Lit O2. Still has lot of resp secretions. - Exam Vitals: Temp Pulse Resp BP Pulse Ox 97.5 F L 77 21 128/72 96 01/01/18 08:18 18 08:18 01/01/18 08:18 01/01/18 08:18 01/01/18 08:18 Exam: Gen: Alert, awake, Demented Chest: Diminished breath sounds B/L, Mild wheezing, Ronchi +, crackles +, No rales, Junky BS+ Heart: S1S2+ RRR No murmurs Abd: Soft, NT, BS +, No organomegaly Ext: No edema, pulses are palpable, No calf tenderness Neuro : demented, unable to do thorough neurological examination Skin: No rash. - Assessment and Plan (1) Reactive airway disease with acute exacerbation Current Visit: Yes Status: Acute Assessment and Plan: Triggered by RSV bronchitis She does have inc resp secretions will ask RT to do deep suctioning cont empirical abx Cont IV steroids Cont bronchodilators currently on 2 lit oxygen... Try to wean her off the oxygen as she tolerates Patient does need to stay in the hospital more than 2 midnights due to her complex medical problems and need close monitoring on tele. So we will change her to full admission today. I did review my colleague Dr. Valenzuela's H & P including HPI, PMH, PSH, FH, SH, and ROS no changes noticed (2) Acute bronchitis Current Visit: Yes Status: Acute Assessment and Plan: Resp viral panel : positive for RSV virus cont symptomatic and supportive care with her prolonged duration of symptoms concerning for bacterial infection too continue empirical antibiotic doxycycline for now (3) Prolonged Q-T interval on ECG Current Visit: Yes Status: Acute Assessment and Plan: QTC on EKG is 505 upon admission will f/u on today's EKG avoid QT prolongation meds (4) HTN (hypertension) Current Visit: No Status: Chronic Assessment and Plan: Resumed home medications stable with current home medication (5) HLD (hyperlipidemia) Current Visit: No Status: Chronic Assessment and Plan: Resumed home medication (6) DVT prophylaxis Current Visit: No Status: Acute Assessment and Plan: Heparin subcutaneous (7) Diabetes mellitus Current Visit: No Status: Chronic Assessment and Plan: ADA diet her hemoglobin A1 C -7 .3 no need of insulin (8) A-fib Current Visit: No Status: Chronic Assessment and Plan: Currently rate controlled Not on anticoagulation secondary to multiple falls Continue home medications Cardizem (9) Dementia Current Visit: No Status: Acute Assessment and Plan: Continue donepezil Fall precautions, aspiration precautions (10) Overweight (BMI 25.0-29.9) Current Visit: Yes Status: Acute Assessment and Plan: BMI 29.6 Consider nutrition consult (11) REENA (acute kidney injury) Current Visit: No Status: Acute Assessment and Plan: Due to dehydration will start her on IVF cont close monitoring - Time Spent with Patient Total time spent is greater than 50% in coordination of care (as documented) at patient's floor/unit and/or counseling patient: Internal Medicine: Result - Labs CBC & Chem 7: 01/01/18 05:53 01/01/18 05:53 Labs: Short CBC 01/01/18 Range/Units 05:53 WBC 9.8 D (4.3-11.1) K/mcL Hgb 12.8 (11.5-15.4) g/dL Hct 38.7 (35.3-44.9) % Plt Count 151 (140-400) K/mcL Neutrophils # 8.7 (1.6-8.9) K/mcL BMP 01/01/18 05:53 Sodium 138 Potassium 3.8 Chloride 105 Carbon Dioxide 21 L BUN 37 H Creatinine 1.58 H Glucose 268 H Calcium 8.6 Urine 01/01/18 Range/Units 06:00 Urine Color Dark Yellow (Yellow) Urine Clarity Clear (Clear) Urine pH 5.0 (5.0-8.0) pH Units Ur Specific Davis > 1.030 H (1.010-1.025) Urine Protein Trace (Neg-Trace) mg/dL Urine Glucose (UA) 100 H (Normal) mg/dL Consult Discharge Plan - Plan Referrals: Amelia Reddy CNP [Primary Care Provider] - 01/12/18 9:00 am () (2) Acute bronchitis Qualifiers: Bronchitis organism: unspecified organism Qualified Code(s): J20.9 - Acute bronchitis, unspecified (4) HTN (hypertension) Qualifiers: Hypertension type: essential hypertension Qualified Code(s): I10 - Essential (primary) hypertension (5) HLD (hyperlipidemia) Qualifiers: Hyperlipidemia type: pure hypercholesterolemia Qualified Code(s): E78.00 - Pure hypercholesterolemia, unspecified; E78.0 - Pure hypercholesterolemia (7) Diabetes mellitus Qualifiers: Diabetes mellitus type: type 2 Diabetes mellitus terminal press operator insulin use: without residential use Diabetes mellitus complication status: without complication Qualified Code(s): E11.9 - Type 2 diabetes mellitus without complications (8) A-fib Qualifiers: Atrial fibrillation type: paroxysmal Qualified Code(s): I48.0 - Paroxysmal atrial fibrillation (9) Dementia Qualifiers: Dementia type: unspecified type Dementia behavioral disturbance: without behavioral disturbance Qualified Code(s): F03.90 - Unspecified dementia without behavioral disturbance
[2018-01-01] MEDS: 0.9 % Sodium Chloride 1,000 ML IVC SCH (15:16)
[2018-01-01] MEDS: Aspirin Enteric Coated 81 MG Tablet PO SCH (17:53)
[2018-01-01] MEDS: Mirtazapine 15 MG TABLET PO SCH (21:24)
[2018-01-02] MEDS: Insulin LISPRO 300 UNITS/3 ML VIAL SQ SCH ×3 (00:22→12:41)
[2018-01-02] MEDS: 0.9 % Sodium Chloride 1,000 ML IVC SCH ×2 (02:27→09:44)
[2018-01-02] MEDS: Ipratropium/Albuterol Neb 3 ML IH SCH ×2 (03:37→07:47)
[2018-01-02] MEDS: *HR* Heparin 5,000 UNIT/ML VIAL SQ SCH ×2 (05:57→12:41)
[2018-01-02 06:14] LABS: Calcium 8.2 mg/dL (8.6-10.3); Potassium 4.2 mEq/L (3.5-5.1)
[2018-01-02] MEDS: Lisinopril 20 MG TABLET PO SCH (09:43)
[2018-01-02] MEDS: MethylPREDNISolone 40 MG/ML VIAL IVP SCH (09:43)
[2018-01-02] MEDS: Multivit/Ca/Min/Fe/FA 1 TAB TABLET PO SCH (09:43)
[2018-01-02] MEDS: Doxycycline 100 MG in 0.9 % Sodium Chloride Mini Bag 100 ML IVPB SCH (09:43)
[2018-01-02] MEDS: Cholecalciferol (D-3) 1,000 UNIT TABLET PO SCH (09:43)
[2018-01-02] MEDS: Loratadine 10 MG TABLET PO SCH (09:44)
[2018-01-02] MEDS ORDERED: Ipratropium/Albuterol Neb 3 ML IH PRN (09:46)
[2018-01-02 12:23] VITALS: BP 136/71
--- NOTE | 2018-01-02 13:59 | Discharge Summary ---
- NOTES TO OUTPATIENT PROVIDER Notes to Outpatient Provider: f/u with PCP in one week Orders not resulted at time of discharge: Pending orders 12/31/17 09:54 Culture,Sputum with Gram Stain [RM] Stat 01/01/18 06:00 EKG [ECG 12 lead ECG] [ECG] AM 0600 01/02/18 13:54 EKG [ECG 12 lead ECG] [ECG] Stat Date of Encounter: 01/02/18 Time of Encounter: 13:56 - Discharge Diagnosis (1) Reactive airway disease with acute exacerbation Priority: Primary Status: Acute Qualifiers: Asthma severity: mild Qualified Code(s): J45.21 - Mild intermittent asthma with (acute) exacerbation (2) Acute bronchitis Priority: Primary Status: Acute Qualifiers: Bronchitis organism: unspecified organism Qualified Code(s): J20.9 - Acute bronchitis, unspecified (3) Prolonged Q-T interval on ECG Priority: Secondary Status: Acute (4) HTN (hypertension) Priority: Secondary Status: Chronic Qualifiers: Hypertension type: essential hypertension Qualified Code(s): I10 - Essential (primary) hypertension (5) HLD (hyperlipidemia) Priority: Secondary Status: Chronic Qualifiers: Hyperlipidemia type: pure hypercholesterolemia Qualified Code(s): E78.00 - Pure hypercholesterolemia, unspecified; E78.0 - Pure hypercholesterolemia (6) DVT prophylaxis Priority: Secondary Status: Acute (7) Diabetes mellitus Priority: Secondary Status: Chronic Qualifiers: Diabetes mellitus type: type 2 Diabetes mellitus exterminator insulin use: without exterminator use Diabetes mellitus complication status: without complication Qualified Code(s): E11.9 - Type 2 diabetes mellitus without complications (8) A-fib Priority: Secondary Status: Chronic Qualifiers: Atrial fibrillation type: paroxysmal Qualified Code(s): I48.0 - Paroxysmal atrial fibrillation (9) Dementia Priority: Secondary Status: Acute Qualifiers: Dementia type: unspecified type Dementia behavioral disturbance: without behavioral disturbance Qualified Code(s): F03.90 - Unspecified dementia without behavioral disturbance (10) Overweight (BMI 25.0-29.9) Priority: Secondary Status: Acute (11) REENA (acute kidney injury) Priority: Secondary Status: Acute Hospital course: Ms. Tran is a 87 year old female with history of atrial fibrillation not on anticoagulation secondary to falls,dementia, diabetes, HLD, HTN, seasonal allergies, and thyroid disease presented to ER via EMS w/CC wheezing. Daughter reports that she has had a recent upper respiratory tract infection and was prescribed steroids and Z-Shukri and believes that her mother has caught which she has. While the emergency department she was found to be wheezing, and saturating 92% on room air she was provided with DuoNeb's and Solu-Medrol without significant improvement in her wheezing so she was endorsed for further admission. Pt was admitted in the hospital and started her on IV steroids, frequent bronchodilators and prophylactic abx doxycycline. Her respiratory viral panel came back as positive for RSV. Patient symptoms started improving slowly. Today she is breathing comfortably on room air. Her respiratory secretions also improved. She did have prolonged QT interval initially which seems to be improved now. Since patient vitals are stable and she is breathing comfortably on room air will discharge her home in a stable condition today. - Time Spent with Patient Total time spent providing and/or coordinating discharge services: - Discharge Medications Prescriptions: Doxycycline Hyclate 100 mg PO BID #6 tablet predniSONE [PredniSONE] 40 mg PO DAILY #10 tablet Home Medications: Aspirin Enteric Coated [Aspirin EC] 81 mg PO QPM 01/27/15 [History] Acetaminophen [Tylenol Arthritis] 1,300 mg PO DAILY PRN 07/16/15 [History] Atorvastatin [Lipitor] 10 mg PO HS 07/09/17 [History] Calcium Carbonate/Vitamin D3 [Calcium 600 + Vit D Softgel] 1 tab PO DAILY 07/09/17 [History] Levothyroxine Sodium 50 mcg PO QAM 07/09/17 [History] Metformin HCl [Glucophage] 1,000 mg PO BID 07/09/17 [History] Montelukast [Singulair] 10 mg PO DAILY 07/09/17 [History] Multivitamin [One Daily Multivitamin] 1 tab PO QAM 07/09/17 [History] Docusate [Colace] 100 mg PO BID PRN 08/02/17 [History] Diltiazem [Cardizem] 30 mg PO QID #120 tablet 11/02/17 [Rx] Donepezil [Aricept] 5 mg PO HS 12/22/17 [History] Enalapril Maleate [Vasotec] 10 mg PO DAILY 12/31/17 [History] Loratadine [Allergy Relief] 10 mg PO DAILY 12/31/17 [History] Mirtazapine [Remeron] 15 mg PO HS 12/31/17 [History] Doxycycline Hyclate 100 mg PO BID #6 tablet 01/02/18 [Rx] predniSONE [PredniSONE] 40 mg PO DAILY #10 tablet 01/02/18 [Rx] Allergies/Adverse Reactions: Allergy/AdvReac Type Severity Reaction Status Date / Time No Known Allergies Allergy Verified 12/31/17 09:09 Date of admission: 01/01/18 11:50 Primary care physician: Amleia Reddy CNP Consults: 12/31/17 09:53 Consult to Case Management [CONS] Routine Comment: - Constitutional Vitals: Temp Pulse Resp BP Pulse Ox 98.2 F 94 19 136/71 90 01/02/18 12:22 01/02/18 12:22 01/02/18 12:22 01/02/18 12:22 01/02/18 12:22 General appearance: Present: cooperative, no acute distress Exam: Gen: Alert, awake, Demented Chest: Diminished breath sounds B/L, Mild wheezing, Ronchi +, crackles +, No rales, Heart: S1S2+ RRR No murmurs Abd: Soft, NT, BS +, No organomegaly Ext: No edema, pulses are palpable, No calf tenderness Neuro : demented, unable to do thorough neurological examination Skin: No rash. - Patient Status Disposition: Home Health Service Condition: Good Overall status at discharge: patient is back to baseline - Discharge Instructions Follow Up With: Amelia Reddy CNP [Primary Care Provider] - 01/12/18 9:00 am () - Diet and Activity Activity: increase activity as tolerated Diet: low salt diet
--- NOTE | 2018-01-02 14:08 | Physician Discharge Referral ---
Home Health/Hosp Referral Info Transfer to: Home Health Provider in Charge Post Discharge: PCP - Diagnosis (1) Reactive airway disease with acute exacerbation Status: Acute (2) Acute bronchitis Status: Acute (3) Prolonged Q-T interval on ECG Status: Acute (4) HTN (hypertension) Status: Chronic (5) HLD (hyperlipidemia) Status: Chronic (6) DVT prophylaxis Status: Acute (7) Diabetes mellitus Status: Chronic (8) A-fib Status: Chronic (9) Dementia Status: Acute (10) Overweight (BMI 25.0-29.9) Status: Acute (11) REENA (acute kidney injury) Status: Acute - Respiratory Orders Smoking Cessation: Smoking cessation has been advised. For more information, call the [facility] Tobacco Quit Line at 9-641-DQFE-NOW. - Services Needed Following services are medically necessary services: Nursing - Transfer Medications Prescriptions: Doxycycline Hyclate 100 mg PO BID #6 tablet predniSONE [PredniSONE] 40 mg PO DAILY #10 tablet Home Medications: Aspirin Enteric Coated [Aspirin EC] 81 mg PO QPM 01/27/15 [History] Acetaminophen [Tylenol Arthritis] 1,300 mg PO DAILY PRN 07/16/15 [History] Atorvastatin [Lipitor] 10 mg PO HS 07/09/17 [History] Calcium Carbonate/Vitamin D3 [Calcium 600 + Vit D Softgel] 1 tab PO DAILY 07/09/17 [History] Levothyroxine Sodium 50 mcg PO QAM 07/09/17 [History] Metformin HCl [Glucophage] 1,000 mg PO BID 07/09/17 [History] Montelukast [Singulair] 10 mg PO DAILY 07/09/17 [History] Multivitamin [One Daily Multivitamin] 1 tab PO QAM 07/09/17 [History] Docusate [Colace] 100 mg PO BID PRN 08/02/17 [History] Diltiazem [Cardizem] 30 mg PO QID #120 tablet 11/02/17 [Rx] Donepezil [Aricept] 5 mg PO HS 12/22/17 [History] Enalapril Maleate [Vasotec] 10 mg PO DAILY 12/31/17 [History] Loratadine [Allergy Relief] 10 mg PO DAILY 12/31/17 [History] Mirtazapine [Remeron] 15 mg PO HS 12/31/17 [History] Doxycycline Hyclate 100 mg PO BID #6 tablet 01/02/18 [Rx] predniSONE [PredniSONE] 40 mg PO DAILY #10 tablet 01/02/18 [Rx] Allergies/Adverse Reactions: Allergy/AdvReac Type Severity Reaction Status Date / Time No Known Allergies Allergy Verified 12/31/17 09:09 Certification: Further, I certify that my clinical findings support that this patient is homebound (i.e. absences from home require considerable and taxing effort and are for medical reasons or sabianism services or infrequently or short duration when for other reasons) because: Homebound Reason: Patient requires assistance of a person or device to safely leave home Attestation: My signature below is to certify that this patient is under my care and that I, or nurse practitioner, or a physician's curatorial assistant working with me, has a [id number] encounter with this patient.
--- NOTE | 2018-01-02 17:40 | Electrocardiograph Report ---
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
[2018-01-03] MEDS ORDERED: predniSONE 20 MG TABLET PO SCH (09:00)
== END 2018-01-02 18:11 | disposition home health service (06) | DRG 202 ==
LOC: 3BNU 07:50 → EMEROOARM 07:50 → 3BNU 13:50
PROVIDERS: ADMIT Internal Medicine; ATTEND Internal Medicine

== ENCOUNTER 2018-01-12 09:51 | Observation (INO) ==
[2018-01-12 10:56] LABS: Basophils # 0.1 K/mcL (0.0-0.2); Basophils % 0.5 %; Eosinophils % 0.3 %; Hematocrit 43.3 % (35.3-44.9); Hemoglobin 13.7 g/dL (11.5-15.4); Immature Granulocytes % 1.7 % (0-4); Lymphocytes # 0.9 K/mcL (0.6-4.6); Lymphocytes % 7.9 %; Mean Corpuscular HGB Conc 31.6 g/dL (31.6-35.5); Mean Corpuscular Hemoglobin 29.1 pg (28.0-33.3); Mean Corpuscular Volume 92.1 fL (83.0-100.0); Mean Platelet Volume 10.9 fL (9.4-12.4); Monocytes # 0.5 K/mcL (0.0-1.3); Monocytes % 4.8 %; Neutrophils # 9.4 K/mcL (1.6-8.9); Platelet Count 203 K/mcL (140-400); Red Cell Distribution Width 13.9 % (11.5-14.5); Segmented Neutrophils % 84.8 %
--- NOTE | 2018-01-12 11:00 | Emergency Department Note ---
Addendum entered and electronically signed by Cricket Smith DO 01/12/18 12:37: CT scan of the head did show an acute multifocal paranasal sinusitis Add diagnosis of paranasal sinusitis. Original Note: Disposition Clinical Impression: Hyperglycemia Syncopal episodes Qualifiers: Syncope type: unspecified Qualified Code(s): R55 - Syncope and collapse Altered mental status Qualifiers: Altered mental status type: unspecified Qualified Code(s): R41.82 - Altered mental status, unspecified Disposition: Admitted As Inpatient Condition: Good Time of Disposition: 12:25 General Adult HPI - General Chief complaint: ED Syncope Stated complaint: syncope Time Seen by Provider: 01/12/18 10:09 Source: family, EMS Mode of arrival: EMS Limitations: altered mental status Nursing Notes Reviewed: Yes Vital Signs Reviewed: Yes - History of Present Illness HPI Narrative: Patient is an 87-year-old female that presents the emergency department with syncopal episode. Patient's daughters at bedside and states that she has had multiple episodes like this in the past and is had an extensive workup. Janene max states that there is the primary care office today and she was sitting in a chair and had a syncopal episode. Daughter states that this lasted just a few seconds. Daughter stated that her heart rate and blood pressure did drop at that time. Daughter states that she does have a history of dementia and has been noncommunicative and seems to be much more tired and sleepy as of late. Daughter states that this is not her baseline today and seems more altered mentation than usual. Pain Scale: 0 - Related Data Home Medications Medication Instructions Recorded Confirmed Aspirin Enteric Coated [Aspirin EC] 81 mg PO QPM 01/27/15 01/12/18 Acetaminophen [Tylenol Arthritis] 1,300 mg PO DAILY PRN 07/16/15 01/12/18 Atorvastatin [Lipitor] 10 mg PO HS 07/09/17 01/12/18 Calcium Carbonate/Vitamin D3 1 tab PO DAILY 07/09/17 01/12/18 [Calcium 600 + Vit D Softgel] Levothyroxine Sodium 50 mcg PO QAM 07/09/17 01/12/18 Metformin HCl [Glucophage] 1,000 mg PO BID 07/09/17 01/12/18 Montelukast [Singulair] 10 mg PO DAILY 07/09/17 01/12/18 Multivitamin [One Daily 1 tab PO QAM 07/09/17 01/12/18 Multivitamin] Docusate [Colace] 100 mg PO BID PRN 08/02/17 01/12/18 Donepezil [Aricept] 5 mg PO HS 12/22/17 01/12/18 Enalapril Maleate [Vasotec] 5 mg PO BID 12/31/17 01/12/18 Loratadine [Allergy Relief] 10 mg PO DAILY 12/31/17 01/12/18 Mirtazapine [Remeron] 15 mg PO HS 12/31/17 01/12/18 Previous Rx's Medication Instructions Recorded Diltiazem [Cardizem] 30 mg PO QID #120 tablet 11/02/17 Allergies Allergy/AdvReac Type Severity Reaction Status Date / Time No Known Allergies Allergy Verified 01/12/18 09:59 All systems ED: reviewed and negative except as stated. Constitutional: Reports: other (AMS). 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 - Social History Smoking Status: Never smoker Smokeless Tobacco Status: No Alcohol use: Reports: none Drug use: Reports: none Physical Exam - General Limitations: altered mental status General appearance: lethargic - Head Head exam: atraumatic, normocephalic - Eye Eye exam: Present: normal appearance, EOMI - Neck Neck exam: Present: normal inspection, full ROM, trachea midline - Respiratory Respiratory exam: Present: wheezes (Mild Wheezing ) - Cardiovascular Cardiovascular exam: Present: regular rate, normal rhythm, normal heart sounds, +S1, +S2 - Abdominal Exam Abdominal exam: Present: soft, Non-Tender, normal bowel sounds - Neurological Exam Neurological exam: Absent: alert, oriented X3 - Psychiatric Psychiatric exam: Present: normal affect, normal mood - Skin Skin exam: Present: warm, dry, intact Course Vital Signs Temperature 97.6 F 01/12/18 09:59 Pulse Rate 60 01/12/18 09:59 Respiratory Rate 16 01/12/18 09:59 Blood Pressure 139/55 01/12/18 09:59 O2 Sat by Pulse Oximetry 90 01/12/18 09:59 Temperature 97.6 F 01/12/18 09:59 Pulse Rate 60 01/12/18 09:59 Respiratory Rate 16 01/12/18 09:59 Blood Pressure 139/55 01/12/18 09:59 O2 Sat by Pulse Oximetry 90 01/12/18 10:25 Oxygen Delivery Oxygen Delivery Room Air Medical Decision Making - MDM Narrative Medical decision making narrative: Due the patient presenting to the emergency department with near-syncopal episodes and altered mentation base laboratory testing, chest x-ray EKG CT of the head will be obtained. CT the head did not show any acute intracranial process. Chest x-ray did not show any acute cardiopulmonary process. Patient does have an elevated glucose. Her TSH is normal. Troponin is negative. Urinalysis does not show any acute infection. Patient does not have an elevated white count or anemia. The remainder of her laboratory testing is relatively unremarkable and at her baseline. Patient will need to be admitted to the hospital for further evaluation and management due to having some altered mentation with the syncopal episode. Family is in agreement with this plan. I called spoke the admitting hospitalist and she has accepted the patient to their service. Patient be admitted to the hospital this time for further evaluation and management. - Medical Records Medical records reviewed: Yes I reviewed the patient's medical records. - Lab Data Lab results reviewed: Yes I reviewed the patient's lab results. Result diagrams: 01/12/18 10:40 01/12/18 10:40 Lab Results 01/12/18 01/12/18 01/12/18 Range/Units 10:00 10:40 10:40 WBC 11.0 (4.3-11.1) K/mcL RBC 4.70 (3.82-4.97) M/mcL Hgb 13.7 (11.5-15.4) g/dL Hct 43.3 (35.3-44.9) % MCV 92.1 (83.0-100.0) fL MCH 29.1 (28.0-33.3) pg MCHC 31.6 (31.6-35.5) g/dL RDW 13.9 (11.5-14.5) % Plt Count 203 (140-400) K/mcL MPV 10.9 (9.4-12.4) fL Immature Gran % 1.7 (0-4) % Seg Neutrophils % 84.8 % Lymphocytes % 7.9 % Monocytes % 4.8 % Eosinophils % 0.3 % Basophils % 0.5 % Neutrophils # 9.4 H (1.6-8.9) K/mcL Lymphocytes # 0.9 (0.6-4.6) K/mcL Monocytes # 0.5 (0.0-1.3) K/mcL Eosinophils # 0.0 (0.0-0.6) K/mcL Basophils # 0.1 (0.0-0.2) K/mcL PT 11.2 (9.4-12.1) Seconds INR 1.0 APTT 24.7 L (26.0-36.0) Seconds Sodium (136-145) mEq/L Potassium (3.5-5.1) mEq/L Chloride (98-107) mEq/L Carbon Dioxide (23-29) mEq/L BUN (8-23) mg/dL Creatinine (0.60-1.20) mg/dL Est GFR ( Amer) (> 60) Est GFR (Non-Af Amer) (> 60) BUN/Creatinine Ratio (6-26) Glucose (70-105) mg/dL POC Glucose 281 H (70-99) mg/dL Calculated Osmolality (280-300) Calcium (8.6-10.3) mg/dL Troponin I (< 0.04) ng/mL TSH (0.340-5.600) mcIU/mL Urine Color (Yellow) Urine Clarity (Clear) Urine pH (5.0-8.0) pH Units Ur Specific [place] (1.010-1.025) Urine Protein (Neg-Trace) mg/dL Urine Glucose (UA) (Normal) mg/dL Urine Ketones (Negative) mg/dL Urine Blood (Negative) Urine Nitrite (Negative) Urine Bilirubin (Negative) Urine Urobilinogen (Normal) mg/dL Ur Leukocyte Esterase (Negative) Urine Opiates Screen (Bkmewd=045) ng/mL Ur Barbiturates Screen (Jkznkf=723) ng/mL Ur Phencyclidine Scrn (Cutoff=25) ng/mL Ur Amphetamines Screen (Vjqjpn=3431) ng/mL U Benzodiazepines Scrn (Jwuqsn=468) ng/mL Urine Cocaine Screen (Cutoff= 300) ng/mL U Marijuana (THC) Screen (Cutoff = 50) ng/mL Ur Drug Screen Interp Ethyl Alcohol (Less than 10) mg/dL 01/12/18 01/12/18 01/12/18 Range/Units 10:40 11:00 11:04 WBC (4.3-11.1) K/mcL RBC (3.82-4.97) M/mcL Hgb (11.5-15.4) g/dL Hct (35.3-44.9) % MCV (83.0-100.0) fL MCH (28.0-33.3) pg MCHC (31.6-35.5) g/dL RDW (11.5-14.5) % Plt Count (140-400) K/mcL MPV (9.4-12.4) fL Immature Gran % (0-4) % Seg Neutrophils % % Lymphocytes % % Monocytes % % Eosinophils % % Basophils % % Neutrophils # (1.6-8.9) K/mcL Lymphocytes # (0.6-4.6) K/mcL Monocytes # (0.0-1.3) K/mcL Eosinophils # (0.0-0.6) K/mcL Basophils # (0.0-0.2) K/mcL PT (9.4-12.1) Seconds INR APTT (26.0-36.0) Seconds Sodium 139 (136-145) mEq/L Potassium 4.3 (3.5-5.1) mEq/L Chloride 105 (98-107) mEq/L Carbon Dioxide 25 (23-29) mEq/L BUN 30 H (8-23) mg/dL Creatinine 1.16 (0.60-1.20) mg/dL Est GFR ( Amer) 53 L (> 60) Est GFR (Non-Af Amer) 44 L (> 60) BUN/Creatinine Ratio 26 (6-26) Glucose 301 H (70-105) mg/dL POC Glucose (70-99) mg/dL Calculated Osmolality 305 H (280-300) Calcium 8.5 L (8.6-10.3) mg/dL Troponin I < 0.03 (< 0.04) ng/mL TSH 3.428 (0.340-5.600) mcIU/mL Urine Color Dark Yellow (Yellow) Urine Clarity Clear (Clear) Urine pH 5.5 (5.0-8.0) pH Units Ur Specific [place] 1.016 (1.010-1.025) Urine Protein Negative (Neg-Trace) mg/dL Urine Glucose (UA) 500 H (Normal) mg/dL Urine Ketones 15 H (Negative) mg/dL Urine Blood Negative (Negative) Urine Nitrite Negative (Negative) Urine Bilirubin Negative (Negative) Urine Urobilinogen Normal (Normal) mg/dL Ur Leukocyte Esterase Negative (Negative) Urine Opiates Screen Negative (Bzebgw=130) ng/mL Ur Barbiturates Screen Negative (Sbhrrl=798) ng/mL Ur Phencyclidine Scrn Negative (Cutoff=25) ng/mL Ur Amphetamines Screen Negative (Vzhjsg=4664) ng/mL U Benzodiazepines Scrn Negative (Sxjscg=510) ng/mL Urine Cocaine Screen Negative (Cutoff= 300) ng/mL U Marijuana (THC) Screen Negative (Cutoff = 50) ng/mL Ur Drug Screen Interp See Below Ethyl Alcohol < 10 (Less than 10) mg/dL - Radiology Data Radiology results reviewed: Yes I reviewed the patient's radiology results. Chest X-Ray 01/12/18 10:09 IMPRESSION: No evidence pneumonia or pleural effusion. D/ / Macario Ray / Macario Ray Interpreting Provider: Macario Ray Head CT 01/12/18 10:58 IMPRESSION: 1. 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 2. No acute intracranial abnormality. 3. Findings consistent with acute multifocal paranasal sinusitis. 4. Stable left mastoid and middle ear space soft tissue opacification. D/ / Nabil Murray MD / Nabil Murary MD Interpreting Provider: Nabil Murray MD - EKG Data EKG #1 EKG attestation: Yes I reviewed and interpreted this EKG. EKG results narrative: 6 EKG shows a sinus rhythm at a rate of 59 bpm, CO interval of 135, QRS duration of 120, QTC of 446. No evidence of STEMI on EKG. This is compared to previous EKG on 01/02/18.
[2018-01-12 11:05] LABS: Prothrombin Time 11.2 Seconds (9.4-12.1)
[2018-01-12 11:08] LABS: Activated Partial Thrombo Time 24.7 Seconds (26.0-36.0)
[2018-01-12 11:20] LABS: BUN/Creatinine Ratio 26 (6-26); Blood Urea Nitrogen 30 mg/dL (8-23); Calcium 8.5 mg/dL (8.6-10.3); Carbon Dioxide 25 mEq/L (23-29); Chloride 105 mEq/L (98-107); Ethanol < 10 mg/dL (Less than 10); Glucose 301 mg/dL (70-105); Osmolality,Calculated 305 (280-300); Potassium 4.3 mEq/L (3.5-5.1); Sodium 139 mEq/L (136-145); eGFR For Non-African Americans 44 (> 60)
[2018-01-12 11:21] LABS: Troponin I < 0.03 ng/mL (< 0.04)
[2018-01-12 11:33] LABS: Bilirubin,Urine Negative (Negative); Blood,Urine Negative (Negative); Clarity,Urine Clear (Clear); Color,Urine Dark Yellow (Yellow); Glucose,Urine (UA) 500 mg/dL (Normal); Ketones,Urine 15 mg/dL (Negative); Leukocyte Esterase,Urine Negative (Negative); Nitrite,Urine Negative (Negative); PH,Urine 5.5 pH Units (5.0-8.0); Protein,Urine Negative (Neg-Trace); Specific Gravity,Urine 1.016 (1.010-1.025); Urobilinogen,Urine Normal (Normal)
[2018-01-12 11:40] LABS: Thyroid Stimulating Hormone 3.428 mcIU/mL (0.340-5.600)
[2018-01-12 11:42] LABS: Amphetamine Screen,Urine Negative ng/mL (Cutoff=1000); Barbiturate Screen,Urine Negative ng/mL (Cutoff=200); Benzodiazepines Screen,Urine Negative ng/mL (Cutoff=200); Cannabinoid Screen,Urine Negative ng/mL (Cutoff = 50); Cocaine Screen,Urine Negative ng/mL (Cutoff= 300); Opiate Screen,Urine Negative ng/mL (Cutoff=300); Phencyclidine Screen,Urine Negative ng/mL (Cutoff=25)
--- NOTE | 2018-01-12 12:00 | Emergency Department Note ---
Disposition Clinical Impression: Syncopal episodes, Altered mental status, Hyperglycemia Disposition: Admitted As Inpatient Condition: Good General Adult HPI - General Chief complaint: ED Syncope Stated complaint: syncope Time Seen by Provider: 01/12/18 10:09 Source: family, EMS Mode of arrival: EMS Limitations: altered mental status - History of Present Illness Pain Scale: 0 - Related Data Home Medications Medication Instructions Recorded Confirmed Aspirin Enteric Coated [Aspirin EC] 81 mg PO QPM 01/27/15 01/12/18 Acetaminophen [Tylenol Arthritis] 1,300 mg PO DAILY PRN 07/16/15 01/12/18 Atorvastatin [Lipitor] 10 mg PO HS 07/09/17 01/12/18 Calcium Carbonate/Vitamin D3 1 tab PO DAILY 07/09/17 01/12/18 [Calcium 600 + Vit D Softgel] Levothyroxine Sodium 50 mcg PO QAM 07/09/17 01/12/18 Metformin HCl [Glucophage] 1,000 mg PO BID 07/09/17 01/12/18 Montelukast [Singulair] 10 mg PO DAILY 07/09/17 01/12/18 Multivitamin [One Daily 1 tab PO QAM 07/09/17 01/12/18 Multivitamin] Docusate [Colace] 100 mg PO BID PRN 08/02/17 01/12/18 Donepezil [Aricept] 5 mg PO HS 12/22/17 01/12/18 Enalapril Maleate [Vasotec] 5 mg PO BID 12/31/17 01/12/18 Loratadine [Allergy Relief] 10 mg PO DAILY 12/31/17 01/12/18 Mirtazapine [Remeron] 15 mg PO HS 12/31/17 01/12/18 Previous Rx's Medication Instructions Recorded Diltiazem [Cardizem] 30 mg PO QID #120 tablet 11/02/17 Allergies Allergy/AdvReac Type Severity Reaction Status Date / Time No Known Allergies Allergy Verified 01/12/18 09:59 Constitutional: Reports: other (AMS). 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 - Social History Smoking Status: Never smoker Smokeless Tobacco Status: No Alcohol use: Reports: none Drug use: Reports: none Physical Exam - General Limitations: altered mental status General appearance: lethargic Course Vital Signs Temperature 97.6 F 01/12/18 09:59 Pulse Rate 60 01/12/18 09:59 Respiratory Rate 16 01/12/18 09:59 Blood Pressure 139/55 01/12/18 09:59 O2 Sat by Pulse Oximetry 90 01/12/18 09:59 Temperature 98.4 F 01/12/18 15:07 Pulse Rate 74 01/12/18 15:07 Respiratory Rate 17 01/12/18 15:07 Blood Pressure 143/78 01/12/18 15:07 O2 Sat by Pulse Oximetry 99 01/12/18 15:07 Oxygen Delivery Oxygen Delivery Room Air Medical Decision Making - Lab Data Result diagrams: 01/12/18 10:40 01/12/18 10:40 Lab Results 01/12/18 01/12/18 01/12/18 Range/Units 10:00 10:40 10:40 WBC 11.0 (4.3-11.1) K/mcL RBC 4.70 (3.82-4.97) M/mcL Hgb 13.7 (11.5-15.4) g/dL Hct 43.3 (35.3-44.9) % MCV 92.1 (83.0-100.0) fL MCH 29.1 (28.0-33.3) pg MCHC 31.6 (31.6-35.5) g/dL RDW 13.9 (11.5-14.5) % Plt Count 203 (140-400) K/mcL MPV 10.9 (9.4-12.4) fL Immature Gran % 1.7 (0-4) % Seg Neutrophils % 84.8 % Lymphocytes % 7.9 % Monocytes % 4.8 % Eosinophils % 0.3 % Basophils % 0.5 % Neutrophils # 9.4 H (1.6-8.9) K/mcL Lymphocytes # 0.9 (0.6-4.6) K/mcL Monocytes # 0.5 (0.0-1.3) K/mcL Eosinophils # 0.0 (0.0-0.6) K/mcL Basophils # 0.1 (0.0-0.2) K/mcL PT 11.2 (9.4-12.1) Seconds INR 1.0 APTT 24.7 L (26.0-36.0) Seconds Sodium (136-145) mEq/L Potassium (3.5-5.1) mEq/L Chloride (98-107) mEq/L Carbon Dioxide (23-29) mEq/L BUN (8-23) mg/dL Creatinine (0.60-1.20) mg/dL Est GFR ( Amer) (> 60) Est GFR (Non-Af Amer) (> 60) BUN/Creatinine Ratio (6-26) Glucose (70-105) mg/dL POC Glucose 281 H (70-99) mg/dL Calculated Osmolality (280-300) Calcium (8.6-10.3) mg/dL Troponin I (< 0.04) ng/mL TSH (0.340-5.600) mcIU/mL Urine Color (Yellow) Urine Clarity (Clear) Urine pH (5.0-8.0) pH Units Ur Specific [place] (1.010-1.025) Urine Protein (Neg-Trace) mg/dL Urine Glucose (UA) (Normal) mg/dL Urine Ketones (Negative) mg/dL Urine Blood (Negative) Urine Nitrite (Negative) Urine Bilirubin (Negative) Urine Urobilinogen (Normal) mg/dL Ur Leukocyte Esterase (Negative) Urine Opiates Screen (Kexvzq=440) ng/mL Ur Barbiturates Screen (Gcdhaf=614) ng/mL Ur Phencyclidine Scrn (Cutoff=25) ng/mL Ur Amphetamines Screen (Jnyvfg=0530) ng/mL U Benzodiazepines Scrn (Pihgsq=523) ng/mL Urine Cocaine Screen (Cutoff= 300) ng/mL U Marijuana (THC) Screen (Cutoff = 50) ng/mL Ur Drug Screen Interp Ethyl Alcohol (Less than 10) mg/dL 01/12/18 01/12/18 01/12/18 Range/Units 10:40 11:00 11:04 WBC (4.3-11.1) K/mcL RBC (3.82-4.97) M/mcL Hgb (11.5-15.4) g/dL Hct (35.3-44.9) % MCV (83.0-100.0) fL MCH (28.0-33.3) pg MCHC (31.6-35.5) g/dL RDW (11.5-14.5) % Plt Count (140-400) K/mcL MPV (9.4-12.4) fL Immature Gran % (0-4) % Seg Neutrophils % % Lymphocytes % % Monocytes % % Eosinophils % % Basophils % % Neutrophils # (1.6-8.9) K/mcL Lymphocytes # (0.6-4.6) K/mcL Monocytes # (0.0-1.3) K/mcL Eosinophils # (0.0-0.6) K/mcL Basophils # (0.0-0.2) K/mcL PT (9.4-12.1) Seconds INR APTT (26.0-36.0) Seconds Sodium 139 (136-145) mEq/L Potassium 4.3 (3.5-5.1) mEq/L Chloride 105 (98-107) mEq/L Carbon Dioxide 25 (23-29) mEq/L BUN 30 H (8-23) mg/dL Creatinine 1.16 (0.60-1.20) mg/dL Est GFR ( Amer) 53 L (> 60) Est GFR (Non-Af Amer) 44 L (> 60) BUN/Creatinine Ratio 26 (6-26) Glucose 301 H (70-105) mg/dL POC Glucose (70-99) mg/dL Calculated Osmolality 305 H (280-300) Calcium 8.5 L (8.6-10.3) mg/dL Troponin I < 0.03 (< 0.04) ng/mL TSH 3.428 (0.340-5.600) mcIU/mL Urine Color Dark Yellow (Yellow) Urine Clarity Clear (Clear) Urine pH 5.5 (5.0-8.0) pH Units Ur Specific [place] 1.016 (1.010-1.025) Urine Protein Negative (Neg-Trace) mg/dL Urine Glucose (UA) 500 H (Normal) mg/dL Urine Ketones 15 H (Negative) mg/dL Urine Blood Negative (Negative) Urine Nitrite Negative (Negative) Urine Bilirubin Negative (Negative) Urine Urobilinogen Normal (Normal) mg/dL Ur Leukocyte Esterase Negative (Negative) Urine Opiates Screen Negative (Ccuhdb=924) ng/mL Ur Barbiturates Screen Negative (Buzovn=593) ng/mL Ur Phencyclidine Scrn Negative (Cutoff=25) ng/mL Ur Amphetamines Screen Negative (Ahheyc=5089) ng/mL U Benzodiazepines Scrn Negative (Pudorw=352) ng/mL Urine Cocaine Screen Negative (Cutoff= 300) ng/mL U Marijuana (THC) Screen Negative (Cutoff = 50) ng/mL Ur Drug Screen Interp See Below Ethyl Alcohol < 10 (Less than 10) mg/dL Attestation Statement - Attestation Attestation: I examined this patient and my medical decision-making was reviewed with the Resident Physician. I agree with the documented findings, disposition and treatment plan as described except to the extent set forth below. Patient presents to the ED with a chief complaint of altered mental status or loss of consciousness. She is accompanied by her daughter. Patient has had several syncopal episodes with admission lately. She had an episode today while at her PCPs office where she lost consciousness for a few seconds. She became hypoxic and her heart rate dropped to the 30s. Patient appears back to normal at this time other than her daughter states she has been more altered all day. Patient's resting on examination. Arouses with verbal stimulus. Moves all of her Extremities. Abdomen soft nontender. Her lungs are clear. Patient is nonverbal which is her baseline. Plan. Altered mental status workup. Workup is essentially unremarkable. We will put her on antibiotics for the sinusitis. Admitted to medicine for further workup. No further syncopal episodes. Chest X-Ray 01/12/18 10:09 IMPRESSION: No evidence pneumonia or pleural effusion. D/ / Macario Ray / Macario Ray Interpreting Provider: Macario Ray Head CT 01/12/18 10:58 IMPRESSION: 1. 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 2. No acute intracranial abnormality. 3. Findings consistent with acute multifocal paranasal sinusitis. 4. Stable left mastoid and middle ear space soft tissue opacification. D/ / 01/12/2018 12:20:26 Nabil Murray MD / stephanie Interpreting Provider: Nabil Murray MD
[2018-01-12] MEDS ORDERED: Naloxone 0.4 MG/ML INJ IVP PRN (13:14)
[2018-01-12] MEDS ORDERED: Dextrose Gel 15 GM/37.5 ML TUBE PO PRN ×2 (13:54)
[2018-01-12] MEDS ORDERED: D5% in Water 1,000 ML IVC PRN (13:54)
[2018-01-12] MEDS ORDERED: *HR* Dextrose 50 % in Water (Syg) 50 ML SYRINGE IVP PRN (13:54)
--- NOTE | 2018-01-12 14:00 | Internal Med History&Physical ---
Date of Encounter: 01/12/18 Time of Encounter: 13:30 Internal Medicine - H&P: HPI Chief complaint: syncope Admitted From: Home History of present illness: Ms. Tran is a 87 year old female with past history of SVT/A. fib, diabetes, dementia, hypertension, hyperlipidemia, recurrent syncope, presented to the ED after an episode of syncope at her primary care office. Further history was collected from patient's daughter as the patient has minimal verbal output due to dementia. Patient was recently admitted for acute bronchitis and went to her PCP office this morning for post Hospitalization follow-up. Patient was sitting on a chair when she started to doze off and eventually became unresponsive for a few sec. No visual droop, seizure-like activities, loss of bowel/urine control, or tongue-biting period. She quickly regained her consciousness and it is reported that patient became bradycardic and hypotensive on her vitals at the of [facility]. Denies any recent illness, she has successfully completed her course of steroids last Friday without recurrence of symptoms. No sick contacts. Denies any cardiopulmonary or GI/ complaints. In the ED, she was afebrile and hemodynamically stable. Left show normal CBC, Cr 1.16 (it was as low as 0.71 in 06/2017), negative troponin and normal TSH. Urinalysis was negative for leukocyte esterase or nitrite. Urine tox screen was negative. EKG showed normal sinus rhythm without ST/T changes and normal QTc. Chest x-ray did not reveal any acute processes and CT head was unremarkable with the exception of acute multifocal paranasal sinusitis. She was given a dose of Augmentin and admitted for further management. Past Med Surg Social Fam HX - Past Medical History Medical history: non-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, atrial fibrillation, dementia, diabetes, hyperlipidemia, hypertension, thyroid disease, other Additional medical history: HX OF RECURRENT UTI. CHR. CONSTIPATION. INH. ALLERGIES. Psychiatric history: depression - Past Surgical History Surgical History: orthopedic, other Additional surgical history: rotator cuff sx. - Social History Smoking Status: Never smoker Smokeless Tobacco Status: No Alcohol use: none Drug use: none - Family History Mother Family Member Ethnicity: Non- Living Status: Hx Family GI Disorders: Yes (Colon problems) Sister Family Member Ethnicity: Non- Living Status: Hx Family Neurologic Disorders: Yes (dementia) Father Family Member Ethnicity: Non- Living Status: Hx Family Cardiac Disorders: Yes ([place], CAD) Hx Family Respiratory Disorders: No Hx Family Cancer: No Hx Family GI Disorders: No Hx Family Endocrine Disorder: Yes (DM) Hx Family Neuromuscular Disorders: No Hx Family Neurologic Disorders: No Hx Family HEENT Disorders: No Hx Family Autoimmune Disorders: No Internal Medicine - H&P: Meds Aspirin Enteric Coated [Aspirin EC] 81 mg PO QPM 01/27/15 [History] Acetaminophen [Tylenol Arthritis] 1,300 mg PO DAILY PRN 07/16/15 [History] Atorvastatin [Lipitor] 10 mg PO HS 07/09/17 [History] Calcium Carbonate/Vitamin D3 [Calcium 600 + Vit D Softgel] 1 tab PO DAILY 07/09/17 [History] Levothyroxine Sodium 50 mcg PO QAM 07/09/17 [History] Metformin HCl [Glucophage] 1,000 mg PO BID 07/09/17 [History] Montelukast [Singulair] 10 mg PO DAILY 07/09/17 [History] Multivitamin [One Daily Multivitamin] 1 tab PO QAM 07/09/17 [History] Docusate [Colace] 100 mg PO BID PRN 08/02/17 [History] Diltiazem [Cardizem] 30 mg PO QID #120 tablet 11/02/17 [Rx] Donepezil [Aricept] 5 mg PO HS 12/22/17 [History] Enalapril Maleate [Vasotec] 10 mg PO DAILY 12/31/17 [History] Loratadine [Allergy Relief] 10 mg PO DAILY 12/31/17 [History] Mirtazapine [Remeron] 15 mg PO HS 12/31/17 [History] Doxycycline Hyclate 100 mg PO BID #6 tablet 01/02/18 [Rx] predniSONE [PredniSONE] 40 mg PO DAILY #10 tablet 01/02/18 [Rx] Allergy/AdvReac Type Severity Reaction Status Date / Time No Known Allergies Allergy Verified 01/12/18 09:59 All Systems PM: A 10-system review of systems was performed and is reported to be negative for pertinent findings (per daughter) except as documented above in the HPI. - Constitutional Vitals: Reviewed. Temp Pulse Resp BP Pulse Ox 97.6 F 65 16 124/45 98 01/12/18 09:59 01/12/18 12:59 01/12/18 12:59 01/12/18 12:59 01/12/18 12:59 Exam: General: Alert, non-verbal, not in acute distress. HEENT: pupils equal, round and reactive. Cardiovascular:Normal S1 & S2, No JVD. Pulse regular. Lungs: clear to auscultation, no wheezes/rales Abdomen:Soft, non-tender, no rigidity. Extremities:No deformity or swelling Neurological: Nonverbal, grossly nonfocal. No facial droop Skin:Normal color, no rash, no lesions. Pulses:Carotid and radial pulses normal +2. Rest of the physical exam is non 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 Internal Med - H&P Results - Labs CBC & Chem 7: 01/12/18 10:40 01/12/18 10:40 Labs: Short CBC 01/12/18 Range/Units 10:40 WBC 11.0 (4.3-11.1) K/mcL Hgb 13.7 (11.5-15.4) g/dL Hct 43.3 (35.3-44.9) % Plt Count 203 (140-400) K/mcL Neutrophils # 9.4 H (1.6-8.9) K/mcL BMP 01/12/18 10:40 Sodium 139 Potassium 4.3 Chloride 105 Carbon Dioxide 25 BUN 30 H Creatinine 1.16 Glucose 301 H Calcium 8.5 L Cardiac Enzymes 01/12/18 Range/Units 10:40 Troponin I < 0.03 (< 0.04) ng/mL Urine 01/12/18 Range/Units 11:00 Urine Color Dark Yellow (Yellow) Urine Clarity Clear (Clear) Urine pH 5.5 (5.0-8.0) pH Units Ur Specific [place] 1.016 (1.010-1.025) Urine Protein Negative (Neg-Trace) mg/dL Urine Glucose (UA) 500 H (Normal) mg/dL - Impressions ITS Impressions Chest X-Ray 01/12/18 10:09 IMPRESSION: No evidence pneumonia or pleural effusion. D/ / Macario Ray / Macario Ray Interpreting Provider: Macario Ray Head CT 01/12/18 10:58 IMPRESSION: 1. 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 2. No acute intracranial abnormality. 3. Findings consistent with acute multifocal paranasal sinusitis. 4. Stable left mastoid and middle ear space soft tissue opacification. D/ / 01/12/2018 12:20:26 Nabil Murray MD / stephanie Interpreting Provider: Nabil Murray MD - Assessment and plan (1) Syncope Current Visit: Yes Status: Acute Assessment and plan: Similar episodes in the past with extensive workup as below - Limited echo in 2059 shows normal EF and no wall motion abnormalities. Valves not visualized - carotid doppler 10/2017 -ve for significant stenosis - MRI 11/2017 -ve for acute infarct - EEG - mild generalized encephalopathy but no epileptiform activity Review of previous admission records in 2014 shows that patient has SVT for which she was started on PO diltiazem. Daughter states that patient was diagnosed with Afib when she had a brief run of tachycardia in the ED a while ago Nevertheless, top 2 differentials for her syncopal episodes appears to be va sovagal (due to the findings noted at the PCP office) vs. arrhythmia (whether it is tachy- or jovani-related). continue telemetry will check Echo since the valves were not visualized on the last one treat dehydration as below will likely need event monitor, to be arranged with cardiology as an outpatient. Qualifiers: Syncope type: unspecified Qualified Code(s): R55 - Syncope and collapse (2) Arrhythmia Current Visit: No Status: Acute Assessment and plan: SVT vs. Afib, may have underlying SSS as well (but pt is on cardizem for the former) telemetry continue home meds event monitor outpatient Qualifiers: Arrhythmia type: unspecified cardiac arrhythmia Qualified Code(s): I49.9 - Cardiac arrhythmia, unspecified (3) Dehydration Current Visit: Yes Status: Acute Assessment and plan: IVF (4) Dementia Current Visit: No Status: Chronic Assessment and plan: resume home meds Qualifiers: Dementia type: unspecified type Dementia behavioral disturbance: without behavioral disturbance Qualified Code(s): F03.90 - Unspecified dementia without behavioral disturbance (5) Diabetes mellitus Current Visit: No Status: Chronic Assessment and plan: On metformin 1 g twice a day at home. A1c 7.3 in 01/11 Presenting hyperglycemia likely due to recent steroid use. Low-dose sliding scale, hold off on metformin ADA diet, Accu-Cheks before meals and at bedtime. Qualifiers: Diabetes mellitus type: type 2 Diabetes mellitus halfway insulin use: without halfway use Diabetes mellitus complication status: without complication Qualified Code(s): E11.9 - Type 2 diabetes mellitus without complications (6) Hypothyroidism Current Visit: No Status: Chronic Assessment and plan: Resume home meds when reconciled Qualifiers: Hypothyroidism type: acquired Qualified Code(s): E03.9 - Hypothyroidism, unspecified (7) DVT prophylaxis Current Visit: No Status: Acute Assessment and plan: Subcutaneous heparin - Time Spent With Patient Total time spent is greater than 50% in coordination of care (as documented) at patient's floor/unit and/or counseling patient:
[2018-01-12] MEDS: 0.9 % Sodium Chloride 1,000 ML IVC SCH (15:17)
[2018-01-12] MEDS: Insulin LISPRO 300 UNITS/3 ML VIAL SQ SCH (16:24)
[2018-01-12] MEDS: *HR* Heparin 5,000 UNIT/ML VIAL SQ SCH (16:24)
[2018-01-12] MEDS ORDERED: Ipratropium/Albuterol Neb 3 ML IH PRN (16:37)
[2018-01-12] MEDS: Aspirin Enteric Coated 81 MG Tablet PO SCH (17:16)
[2018-01-12] MEDS ORDERED: Mirtazapine 15 MG TABLET PO SCH (21:00)
[2018-01-12] MEDS ORDERED: Insulin LISPRO 300 UNITS/3 ML VIAL SQ SCH (21:00)
[2018-01-13] MEDS: 0.9 % Sodium Chloride 1,000 ML IVC SCH (02:06)
[2018-01-13 05:11] LABS: Hematocrit 37.1 % (35.3-44.9); Mean Corpuscular HGB Conc 32.6 g/dL (31.6-35.5); Mean Corpuscular Hemoglobin 29.3 pg (28.0-33.3); Mean Corpuscular Volume 89.8 fL (83.0-100.0); Mean Platelet Volume 11.1 fL (9.4-12.4); Platelet Count 174 K/mcL (140-400); Red Blood Count 4.13 M/mcL (3.82-4.97); Red Cell Distribution Width 14.1 % (11.5-14.5)
[2018-01-13 05:13] LABS: Hemoglobin 12.1 g/dL (11.5-15.4)
[2018-01-13] MEDS: *HR* Heparin 5,000 UNIT/ML VIAL SQ SCH (05:24)
[2018-01-13 05:32] LABS: BUN/Creatinine Ratio 27 (6-26); Blood Urea Nitrogen 22 mg/dL (8-23); Calcium 7.8 mg/dL (8.6-10.3); Carbon Dioxide 25 mEq/L (23-29); Chloride 109 mEq/L (98-107); Glucose 107 mg/dL (70-105); Magnesium 1.4 mg/dL (1.6-2.6); Osmolality,Calculated 296 (280-300); Potassium 3.8 mEq/L (3.5-5.1); Sodium 141 mEq/L (136-145); eGFR For Non-African Americans > 60 (> 60)
[2018-01-13] MEDS: Insulin LISPRO 300 UNITS/3 ML VIAL SQ SCH ×3 (08:49→17:31)
[2018-01-13] MEDS ORDERED: Loratadine 10 MG TABLET PO SCH (09:00)
[2018-01-13] MEDS ORDERED: Cholecalciferol (D-3) 1,000 UNIT TABLET PO SCH (09:00)
[2018-01-13] MEDS ORDERED: NON-FORMULARY MEDICATION 1 EACH EACH (Calcium Carbonate/Vitamin D3 [Calcium 600 + Vit D So PO SCH (09:00)
[2018-01-13 11:24] VITALS: BP 165/82
--- NOTE | 2018-01-13 12:42 | Discharge Summary ---
- NOTES TO OUTPATIENT PROVIDER Notes to Outpatient Provider: Admitted for recurrent syncope, appears to be related to vasovagal response according to PCP office's report of patient developing transient bradycardia and hypotension. However, patient has history of SVT/pAF and will need event monitor as outpatient to ensure no cardiac e tiology of syncope. Also had mild dehydration which improved with IV fluid. I offer the patient and her daughter a possibility of short-term ECF placement but declined. Date of Encounter: 01/13/18 Time of Encounter: 10:40 - Discharge Diagnosis (1) Syncope Priority: Primary Status: Acute Qualifiers: Syncope type: unspecified Qualified Code(s): R55 - Syncope and collapse (2) Arrhythmia Priority: Secondary Status: Acute Qualifiers: Arrhythmia type: unspecified cardiac arrhythmia Qualified Code(s): I49.9 - Cardiac arrhythmia, unspecified (3) Dehydration Priority: Secondary Status: Acute (4) Dementia Priority: Secondary Status: Chronic Qualifiers: Dementia type: unspecified type Dementia behavioral disturbance: without behavioral disturbance Qualified Code(s): F03.90 - Unspecified dementia without behavioral disturbance (5) Diabetes mellitus Priority: Secondary Status: Chronic Qualifiers: Diabetes mellitus type: type 2 Diabetes mellitus 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 Tran is a 87 year old female with history recurrent syncope, SVT/Afib, was admitted for another episode of syncope. Appears to be related to vasovagal response according to PCP office's report of patient developing transient bradycardia and hypotension. However, patient has history of SVT/pAF and will need event monitor as outpatient to ensure no cardiac etiology of syncope. Also had mild dehydration which improved with IV fluid. CT head finding was suggestive of acute multifocal nasal sinusitis but she is just recently recovering from acute bronchitis due to RSV infection, non-toxic looking without significant sinus tendernss, and without leukocytosis. Symptomatic mx without a bx was recommended. Discharge discussed with: patient, family - Time Spent with Patient Total time spent providing and/or coordinating discharge services: 33 mins - Discharge Medications Home Medications: Aspirin Enteric Coated [Aspirin EC] 81 mg PO QPM 01/27/15 [History] Acetaminophen [Tylenol Arthritis] 1,300 mg PO DAILY PRN 07/16/15 [History] Atorvastatin [Lipitor] 10 mg PO HS 07/09/17 [History] Calcium Carbonate/Vitamin D3 [Calcium 600 + Vit D Softgel] 1 tab PO DAILY 07/09/17 [History] Levothyroxine Sodium 50 mcg PO QAM 07/09/17 [History] Metformin HCl [Glucophage] 1,000 mg PO BID 07/09/17 [History] Montelukast [Singulair] 10 mg PO DAILY 07/09/17 [History] Multivitamin [One Daily Multivitamin] 1 tab PO QAM 07/09/17 [History] Docusate [Colace] 100 mg PO BID PRN 08/02/17 [History] Diltiazem [Cardizem] 30 mg PO QID #120 tablet 11/02/17 [Rx] Donepezil [Aricept] 5 mg PO HS 12/22/17 [History] Enalapril Maleate [Vasotec] 5 mg PO BID 12/31/17 [History] Loratadine [Allergy Relief] 10 mg PO DAILY 12/31/17 [History] Mirtazapine [Remeron] 15 mg PO HS 12/31/17 [History] Allergies/Adverse Reactions: Allergy/AdvReac Type Severity Reaction Status Date / Time No Known Allergies Allergy Verified 01/12/18 09:59 Date of admission: 01/12/18 12:46 Primary care physician: Amelia Reddy CNP Consults: 01/12/18 13:16 Consult to Occupational Therapy [CONS] Routine Comment: Evaluate, develop and implement POC Reason for Consult: syncope, frequent fall Does patient have active BEDREST order?: No Is patient medically & hemodynamically stable?: Yes Consult to Physical Therapy [CONS] Routine Comment: Evaluate, develop and implement POC Reason for Consult: syncope, frequent fall Does patient have active BEDREST order?: No Is patient medically & hemodynamically stable?: Yes 01/12/18 14:53 Consult to Powder Cutting Operator [CONS] Routine Reason for SW Consult: Multiple hosptal stays - Constitutional Vitals: Temp Pulse Resp BP Pulse Ox 98.3 F 67 16 169/86 93 01/13/18 11:22 01/13/18 11:22 01/13/18 11:22 01/13/18 11:22 01/13/18 11:22 Exam: General: Alert, non-verbal, not in acute distress. HEENT: Pupils equal, round and reactive. No maxillary/frontal sinus tenderness Cardiovascular:Normal S1 & S2, No JVD. Pulse regular. Lungs: clear to auscultation, no wheezes/rales Abdomen:Soft, non-tender, no rigidity. Extremities:No deformity or swelling Neurological: Nonverbal, grossly nonfocal. No facial droop - Patient Status Disposition: Home, Self-Care Condition: Good Overall status at discharge: patient is progressing back to baseline - Discharge Instructions Instructions: Syncope (DC), Atrial Fibrillation (DC) Follow Up With: Amelia Reddy CNP [Primary Care Provider] - 01/23/18 9:00 am () Additional Instructions: Contact cardiology for event monitor - Diet and Activity Activity: resume usual activities as tolerated Diet: diabetic diet
--- NOTE | 2018-01-13 14:04 | Electrocardiograph Report ---
[place] [id number] Test Date: 2018-01-12 Pat Name: Anyi Tran Department: [id number] Room: 3B13 Gender: F Composition Worker: : 1930 Requested By: Dru Elizabeth Order Number: [id number] Reading MD: Paolo Escalona Measurements Intervals [place] Rate: 59 P: 71 ND: 165 QRS: -62 QRSD: 120 T: 50 QT: 450 QTc: 446 Interpretive Statements Sinus rhythm Incomplete RBBB and LAFB Left ventricular hypertrophy Electronically Signed On 01-13-2018 14:02:49 EST by Paolo Escalona
[2018-01-13] MEDS: Aspirin Enteric Coated 81 MG Tablet PO SCH (17:03)
== END 2018-01-13 18:11 | disposition home or self-care (01) ==
LOC: EMEROOARM 09:51 → 3BNU 09:51 → SUATTDRO 12:46 → 3BNU 14:38
PROVIDERS: ADMIT Internal Medicine; ATTEND Internal Medicine

== ENCOUNTER 2019-03-02 19:20 | Inpatient (IN) ==
[2019-03-02] MEDS ORDERED: Isovue-370 500 ML BOTTLE IVP ONE (19:49)
[2019-03-02 20:38] LABS: Basophils # 0.1 K/mcL (0.0-0.2); Basophils % 0.5 %; Eosinophils # 0.1 K/mcL (0.0-0.6); Eosinophils % 0.4 %; Hematocrit 47.2 % (35.3-44.9); Hemoglobin 15.5 g/dL (11.5-15.4); Immature Granulocytes % 1.5 % (0-4); Mean Corpuscular HGB Conc 32.8 g/dL (31.6-35.5); Mean Corpuscular Hemoglobin 30.2 pg (28.0-33.3); Mean Corpuscular Volume 91.8 fL (83.0-100.0); Mean Platelet Volume 11.1 fL (9.4-12.4); Monocytes # 0.6 K/mcL (0.0-1.3); Monocytes % 4.5 %; Neutrophils # 10.9 K/mcL (1.6-8.9); Platelet Count 238 K/mcL (140-400); Red Blood Count 5.14 M/mcL (3.82-4.97); Segmented Neutrophils % 85.1 %; White Blood Count 12.8 K/mcL (4.3-11.1)
[2019-03-02 20:42] LABS: INR 0.9; Prothrombin Time 10.5 Seconds (9.4-12.1)
[2019-03-02 20:45] LABS: Activated Partial Thrombo Time 27.9 Seconds (26.0-36.0)
[2019-03-02 21:01] LABS: Alanine Aminotransferase 34 Units/L (7-52); Albumin 4.1 g/dL (3.5-5.7); Albumin/Globulin Ratio 1.4 (1.1-2.2); Alkaline Phosphatase 66 Units/L (34-104); Aspartate Amino Transferase 30 Units/L (13-39); BUN/Creatinine Ratio 31 (6-26); Bilirubin,Direct 0.1 mg/dL (0.0-0.2); Bilirubin,Indirect 0.3 mg/dL (0.0-1.0); Bilirubin,Total 0.4 mg/dL (0.3-1.0); Blood Urea Nitrogen 33 mg/dL (8-23); Carbon Dioxide 25 mEq/L (23-29); Chloride 100 mEq/L (98-107); Creatine Kinase 21 Units/L (30-223); Ethanol < 10 mg/dL (Less than 10); Globulin 2.9 g/dL (2.4-3.5); Glucose 371 mg/dL (70-105); Osmolality,Calculated 312 (280-300); Potassium 4.7 mEq/L (3.5-5.1); Sodium 140 mEq/L (136-145); Troponin I < 0.03 ng/mL (< 0.04); eGFR For African Americans 59 (> 60); eGFR For Non-African Americans 49 (> 60)
[2019-03-02 21:13] LABS: Thyroid Stimulating Hormone 10.957 mcIU/mL (0.340-5.600)
[2019-03-02 21:27] LABS: Bilirubin,Urine Negative (Negative); Blood,Urine Small (Negative); Clarity,Urine Turbid (Clear); Color,Urine Yellow (Yellow); Glucose,Urine (UA) >=1000 mg/dL (Normal); Ketones,Urine 40 mg/dL (Negative); Leukocyte Esterase,Urine Large (Negative); Nitrite,Urine Positive (Negative); PH,Urine 5.5 pH Units (5.0-8.0); Protein,Urine Trace mg/dL (Neg-Trace); Specific Gravity,Urine 1.025 (1.010-1.025); Urobilinogen,Urine Normal (Normal)
[2019-03-02 21:28] LABS: Bacteria,Urine Many per hpf (None-Few); RBC,Urine 0-3 per hpf (0-3); Squamous Epithelial Cell,Urine Many per lpf (None-Few); WBC,Urine TNTC per hpf (0-3)
[2019-03-02 21:35] LABS: Amphetamine Screen,Urine Negative ng/mL (Cutoff=1000); Barbiturate Screen,Urine Negative ng/mL (Cutoff=200); Benzodiazepines Screen,Urine Negative ng/mL (Cutoff=200); Cannabinoid Screen,Urine Negative ng/mL (Cutoff = 50); Cocaine Screen,Urine Negative ng/mL (Cutoff= 300); Opiate Screen,Urine Negative ng/mL (Cutoff=300); Phencyclidine Screen,Urine Negative ng/mL (Cutoff=25)
[2019-03-02 21:41] LABS: Hyaline Casts,Urine None Seen per lpf (None-Few)
[2019-03-02] MEDS ORDERED: Piperacillin/Tazobactam 3.375 GM in Water for inj. (sterile) 20 ML IVP ONE (22:32)
[2019-03-02] MEDS ORDERED: 0.9 % Sodium Chloride 1,000 ML IVC ONE (22:44)
[2019-03-03] MEDS ORDERED: 0.9 % Sodium Chloride 500 ML IVC ONE (01:01)
[2019-03-03] MEDS ORDERED: Ondansetron 4 MG/2 ML VIAL IVP PRN (07:26)
[2019-03-03] MEDS ORDERED: Naloxone 0.4 MG/ML INJ IVP PRN (07:26)
[2019-03-03] MEDS ORDERED: *HR* Promethazine 25 MG/ML VIAL IVP PRN (07:26)
[2019-03-03] MEDS ORDERED: Mag Hydrox/Al Hydrox/Simeth 30 ML UDC PO PRN (07:26)
[2019-03-03] MEDS ORDERED: Dextrose Gel 15 GM/37.5 ML TUBE PO PRN ×2 (07:27)
[2019-03-03] MEDS ORDERED: D5% in Water 1,000 ML IVC PRN (07:27)
[2019-03-03] MEDS ORDERED: *HR* Dextrose 50 % in Water (Syg) 50 ML SYRINGE IVP PRN (07:27)
[2019-03-03] MEDS ORDERED: cefTRIAXone 2,000 MG in 0.9 % Sodium Chloride Mini Bag 100 ML IVPB SCH (08:00)
[2019-03-03] MEDS ORDERED: NON-FORMULARY MEDICATION 1 EACH EACH (Calcium Carbonate/Vitamin D3 [Calcium 600 + Vit D So PO SCH (09:00)
[2019-03-03] MEDS: Lisinopril 20 MG TABLET PO SCH (11:15)
[2019-03-03] MEDS: Aspirin Enteric Coated 81 MG Tablet PO SCH (11:15)
[2019-03-03] MEDS: Loratadine 10 MG TABLET PO SCH (11:16)
[2019-03-03] MEDS: cefTRIAXone 2,000 MG in Water for inj. (sterile) 20 ML IVP SCH (11:16)
[2019-03-03] MEDS: metroNIDAZOLE 500 MG TABLET PO SCH ×2 (11:16→18:22)
[2019-03-03] MEDS: Multivit/Ca/Min/Fe/FA 1 TAB TABLET PO SCH (11:16)
[2019-03-03] MEDS: Insulin LISPRO 300 UNITS/3 ML VIAL SQ SCH ×4 (11:17→22:17)
[2019-03-03] MEDS: Insulin DETEMIR 100 UNIT/ML X5UNITS SQ SCH ×2 (12:06→22:23)
[2019-03-03] MEDS: Cholecalciferol (D-3) 1,000 UNIT (25MCG) TABLET PO SCH (12:06)
[2019-03-03] MEDS: *HR* Heparin 5,000 UNIT/ML VIAL SQ SCH (16:59)
[2019-03-03] MEDS: Mirtazapine 15 MG TABLET PO SCH (22:23)
[2019-03-04 05:29] LABS: Basophils % 0.4 %; Eosinophils # 0.1 K/mcL (0.0-0.6); Eosinophils % 1.6 %; Hematocrit 40.4 % (35.3-44.9); Immature Granulocytes % 0.6 % (0-4); Lymphocytes # 1.7 K/mcL (0.6-4.6); Lymphocytes % 20.8 %; Mean Corpuscular HGB Conc 33.4 g/dL (31.6-35.5); Mean Corpuscular Volume 89.8 fL (83.0-100.0); Mean Platelet Volume 10.9 fL (9.4-12.4); Monocytes # 0.6 K/mcL (0.0-1.3); Monocytes % 7.6 %; Neutrophils # 5.6 K/mcL (1.6-8.9); Platelet Count 232 K/mcL (140-400); Red Cell Distribution Width 13.1 % (11.5-14.5); White Blood Count 8.1 K/mcL (4.3-11.1)
[2019-03-04 05:32] LABS: Hemoglobin 13.5 g/dL (11.5-15.4)
[2019-03-04 05:50] LABS: BUN/Creatinine Ratio 23 (6-26); Blood Urea Nitrogen 20 mg/dL (8-23); Calcium 8.6 mg/dL (8.6-10.3); Carbon Dioxide 26 mEq/L (23-29); Chloride 105 mEq/L (98-107); Glucose 106 mg/dL (70-105); Osmolality,Calculated 299 (280-300); Potassium 3.4 mEq/L (3.5-5.1); Sodium 143 mEq/L (136-145); eGFR For African Americans > 60 (> 60); eGFR For Non-African Americans > 60 (> 60)
[2019-03-04] MEDS: *HR* Heparin 5,000 UNIT/ML VIAL SQ SCH ×2 (06:23→17:16)
[2019-03-04] MEDS: Aspirin Enteric Coated 81 MG Tablet PO SCH (08:51)
[2019-03-04] MEDS: Loratadine 10 MG TABLET PO SCH (08:52)
[2019-03-04] MEDS: Cholecalciferol (D-3) 1,000 UNIT (25MCG) TABLET PO SCH (08:52)
[2019-03-04] MEDS: Lisinopril 20 MG TABLET PO SCH (08:52)
[2019-03-04] MEDS: Multivit/Ca/Min/Fe/FA 1 TAB TABLET PO SCH (08:52)
[2019-03-04] MEDS: cefTRIAXone 2,000 MG in Water for inj. (sterile) 20 ML IVP SCH (08:53)
[2019-03-04] MEDS: Insulin DETEMIR 100 UNIT/ML X5UNITS SQ SCH ×2 (08:53→20:35)
[2019-03-04] MEDS: Insulin LISPRO 300 UNITS/3 ML VIAL SQ SCH ×4 (10:14→20:26)
[2019-03-04] MEDS: Mirtazapine 15 MG TABLET PO SCH (20:35)
[2019-03-05] MEDS: *HR* Heparin 5,000 UNIT/ML VIAL SQ SCH (05:29)
[2019-03-05 06:02] LABS: Hematocrit 40.3 % (35.3-44.9); Hemoglobin 13.3 g/dL (11.5-15.4); Mean Corpuscular Hemoglobin 29.8 pg (28.0-33.3); Mean Corpuscular Volume 90.4 fL (83.0-100.0); Mean Platelet Volume 11.4 fL (9.4-12.4); Platelet Count 207 K/mcL (140-400); Red Blood Count 4.46 M/mcL (3.82-4.97); Red Cell Distribution Width 13.2 % (11.5-14.5); White Blood Count 5.6 K/mcL (4.3-11.1)
[2019-03-05 06:21] LABS: BUN/Creatinine Ratio 23 (6-26); Blood Urea Nitrogen 21 mg/dL (8-23); Carbon Dioxide 24 mEq/L (23-29); Chloride 106 mEq/L (98-107); Glucose 135 mg/dL (70-105); Osmolality,Calculated 299 (280-300); Potassium 3.8 mEq/L (3.5-5.1); Sodium 142 mEq/L (136-145); eGFR For African Americans > 60 (> 60); eGFR For Non-African Americans 59 (> 60)
[2019-03-05] MEDS: Insulin LISPRO 300 UNITS/3 ML VIAL SQ SCH ×2 (08:40→12:59)
[2019-03-05] MEDS: cefTRIAXone 2,000 MG in Water for inj. (sterile) 20 ML IVP SCH (09:00)
[2019-03-05] MEDS: Lisinopril 20 MG TABLET PO SCH (09:00)
[2019-03-05] MEDS: Loratadine 10 MG TABLET PO SCH (09:00)
[2019-03-05] MEDS: Multivit/Ca/Min/Fe/FA 1 TAB TABLET PO SCH (09:00)
[2019-03-05] MEDS: Aspirin Enteric Coated 81 MG Tablet PO SCH (09:00)
[2019-03-05] MEDS: Cholecalciferol (D-3) 1,000 UNIT (25MCG) TABLET PO SCH (09:00)
[2019-03-05] MEDS: Insulin DETEMIR 100 UNIT/ML X5UNITS SQ SCH (09:03)
[2019-03-05 12:35] VITALS: BP 113/73
[2019-03-05] MEDS ORDERED: Aminoglycoside Consult 1 EACH MC ONE (18:48)
== END 2019-03-05 18:49 | disposition home or self-care (01) | DRG 690 ==
LOC: 3BNU 19:20 → EMEROOARM 19:20 → 3BNU 03-03 01:05
PROVIDERS: ADMIT Family Medicine; ATTEND Family Medicine